=== PATIENT | male | born 1945 | race Caucasian/White ===

== ENCOUNTER 2017-08-25 05:43 | Inpatient (IN) | payer MEDICARE, OTHER ==
[2017-08-25 06:26] LABS: Hematocrit 42.5 % (42.0-52.0); Red Blood Cell (RBC) Count 4.98 mill/uL (4.70-6.10); White Blood Cell (WBC) Count 5.2 thou/uL (4.8-10.8)
[2017-08-25] MEDS ORDERED: Protamine Sulfate 50 MG/5 ML VIAL ONE ×3 (06:36→07:24)
[2017-08-25] MEDS ORDERED: Heparin 5,000 UNITS/ML VIAL ONE (06:36)
[2017-08-25 06:43] LABS: Anion Gap 15 mmol/L (10-20); BUN (Urea Nitrogen) 26 mg/dL (8.4-25.7); Calc. Creatinine Clearance 61 mL/min (70-130); Calcium 9.9 mg/dL (7.8-10.44); Carbon Dioxide 23 mmol/L (23-31); Chloride 105 mmol/L (98-107); Estimated GFR-MDRD 58
[2017-08-25] MEDS ORDERED: Fentanyl 250 MCG/5 ML VIAL ONE (07:15)
[2017-08-25] MEDS ORDERED: Heparin 10,000 UNITS/1 ML VIAL ONE (07:16)
[2017-08-25] MEDS ORDERED: Nitroglycerin 50 MG/250 ML BOT 0 ML ONE (07:17)
[2017-08-25] MEDS ORDERED: ePHEDrine/0.9% NaCl/PF SYRINGE 50 mg/10 ml ONE (07:41)
[2017-08-25] MEDS ORDERED: Lidocaine 2% PF 10 ML AMP (For Epidural Use) ONE (07:41)
[2017-08-25] MEDS ORDERED: Glycopyrrolate 0.2 MG/ML 5 ML SYRINGE ONE (07:41)
[2017-08-25] MEDS ORDERED: Ondansetron HCl/PF 4 MG/2 ML Vial ONE ×2 (07:41→10:22)
[2017-08-25] MEDS ORDERED: PHENYLEPHRINE-NS 100 MCG/ML 10 ML SYRINGE ONE ×2 (07:41→09:50)
[2017-08-25] MEDS ORDERED: Propofol 200 MG/20 ML VIAL ONE (07:41)
[2017-08-25] MEDS ORDERED: Ondansetron HCl/PF 4 MG/2 ML Vial IVP PRN ×2 (10:28→13:22)
[2017-08-25] MEDS ORDERED: Promethazine HCl 25 MG/ML VIAL IM PRN ×2 (10:28→13:22)
[2017-08-25] MEDS ORDERED: Promethazine HCl 25 MG/ML VIAL SLOW IVP PRN (10:28)
[2017-08-25] MEDS ORDERED: Promethazine HCl 25 MG/ML VIAL ONE (10:39)
[2017-08-25] MEDS ORDERED: Fentanyl 100 MCG/2 ML VIAL ONE (10:39)
[2017-08-25] MEDS ORDERED: D5 1/2 NS w/20 mEq KCL 1,000 ML ONE (11:08)
--- NOTE | 2017-08-25 11:44 | OP ---
DATE OF PROCEDURE: 08/25/2017 PREOPERATIVE DIAGNOSIS: Peripheral vascular disease with gangrene in left great toe. POSTOPERATIVE DIAGNOSIS: Peripheral vascular disease with gangrene in left great toe. PROCEDURES PERFORMED: 1. Left common femoral artery endarterectomy. 2. Left common femoral artery to above knee popliteal artery bypass utilizing 8 mm ring Propaten co ated [place]. SURGEON: Yury Smalls M.D. ANESTHESIA: General endotracheal - Dr. Jauregui. ESTIMATED BLOOD LOSS: 100 mL. FLUIDS: 900 mL of crystalloid. URINE OUTPUT: 450 mL. PROCEDURE IN DETAIL: After consent was obtained, the patient was brought to the operating room and placed in the supine position on the operating room table. Appropriate anesthetic monitor was place d and general endotracheal anesthesia induced. Left leg was prepped and draped in usual sterile fas hion. The groin was addressed first. Common femoral artery was exposed. The common femoral artery was circumferentially calcified. The profunda was soft at its takeoff, but was not soft distally. Common femoral artery was followed up under the inguinal ligament to where the external iliac arter y could be clamped. Popliteal artery was then exposed through an above-knee incision at [facility]. A Tamar-Wick tunneler was passed and 8 mm ringed Propaten coated [place] graft passed from gr oin to knee. The patient was given 7500 units of heparin. After 3 minutes, the external iliac justice ry was clamped and the profunda was clamped. An incision was made over the profunda takeoff on the common femoral artery and extended proximally through a layer of calcium. The common femoral artery was circumferentially endarterectomized. A 5-0 Prolene was used to tack down distal endpoint. The profunda was widely patent. There was good inflow. [place] graft was sewn in place with running 6-0 Prolene suture. After completion, anastomosis was tested and was hemostatic except for needle h oles. Clamps were reapplied. Distal anastomosis was then addressed. The graft was antegrade flush ed and then flushed with heparinized saline. The graft was reclamped. The popliteal artery was cla mped proximally and distally just above the knee joint. An incision in the popliteal artery was mad e and graft cut to appropriate length. A running 6-0 Prolene anastomosis was created. Prior to com pletion of the anastomosis, arteries were backbled and the graft was antegrade flushed. Anastomosis was completed and tied. Antegrade flow was reestablished. Fifty milligrams of protamine was admin istered. TachoSil was then used to obtain hemostasis at the needle holes. After adequate hemostasi s had been obtained at the distal anastomosis, wound was irrigated and closed in multiple layers. D ermabond was applied to the skin. Hemostasis was ensured in the proximal anastomosis. A single sti tch was placed for hemostasis. Wound was copiously irrigated, closed in layers and Dermabond applie d to skin. The patient was awakened, extubated, and [facility]
[2017-08-25] MEDS ORDERED: Promethazine HCl 25 MG/ML VIAL PR PRN (13:22)
[2017-08-25] MEDS ORDERED: HYDROcodone/Acetaminophen 5/325 mg Tablet PO PRN (13:22)
[2017-08-25] MEDS ORDERED: Fentanyl 100 MCG/2 ML VIAL SLOW IVP PRN ×2 (13:22)
[2017-08-25] MEDS ORDERED: Acetaminophen 325 MG TAB PO PRN (13:22)
[2017-08-25 16:44] VITALS: BMI 26.2
[2017-08-25] MEDS ORDERED: FLU VACC TS2017-18 (>65YR) 0.5 ML SYRINGE IM ONE (17:00)
[2017-08-25] MEDS: HYDROcodone/Acetaminophen 5/325 mg Tablet PO PRN ×2 (17:46→21:44)
[2017-08-25] MEDS: Insulin Regular 300 UNITS/3 ML VIAL SC PRN ×2 (17:48→21:42)
[2017-08-25] MEDS: Gabapentin 300 MG CAP PO SCH (20:48)
[2017-08-25] MEDS: D5 1/2 NS w/20 mEq KCL 1,000 ML IV SCH (20:52)
[2017-08-25] MEDS ORDERED: Atorvastatin Calcium 20 MG TAB PO SCH (21:00)
[2017-08-26] MEDS: D5 1/2 NS w/20 mEq KCL 1,000 ML IV SCH (07:11)
[2017-08-26] MEDS: HYDROcodone/Acetaminophen 5/325 mg Tablet PO PRN (08:05)
[2017-08-26] MEDS: Gabapentin 300 MG CAP PO SCH (08:05)
[2017-08-26] MEDS ORDERED: Aspirin 81 mg Enteric Coated Tablet PO SCH (09:00)
[2017-08-26] MEDS ORDERED: Dapagliflozin Propanediol [Farxiga] 10 MG PO SCH (09:00)
[2017-08-26] MEDS: Insulin Regular 300 UNITS/3 ML VIAL SC PRN (12:32)
[2017-08-26 16:03] VITALS: BP 122/59; TEMP 98.1
--- NOTE | 2017-08-26 18:15 | DIS ---
DATE OF ADMISSION: 08/25/2017 DATE OF DISCHARGE: 08/26/2017 DIAGNOSIS: Peripheral vascular disease with left great toe gangrene. PROCEDURES: 1. Left femoral to above knee popliteal artery bypass utilizing 8-mm Propaten coated [place]atan. 2. Left common femoral artery endarterectomy. DESCRIPTION OF HOSPITAL STAY: Mr. Oswald was admitted for elective left fem-pop. He has done well postoperatively and being discharged to home today. DISCHARGE MEDICATIONS: Unchanged. Followup is with me in 2 weeks to reevaluate his left great toe.
--- NOTE | 2017-08-28 06:53 | EKG ---
Test Reason : PREOP Blood Pressure : / mmHG Vent. Rate : 067 BPM Atrial Rate : 067 BPM P-R Int : 194 ms QRS Dur : 084 ms QT Int : 404 ms P-R-T Axes : -05 048 073 degrees QTc Int : 426 ms Sinus rhythm with sinus arrhythmia with occasional Premature ventricular complexes Otherwise normal ECG When compared with ECG of to 18-Nov-2016 Premature ventricular complexes now present ST no longer depressed in Lateral leads Confirmed by OSCAR ULLOA ([id number]) on 08/28/2017 6:53:46 AM Referred By: CINDY TREVIÑO Confirmed By:OSCAR ULLOA
== END 2017-08-26 17:13 | disposition home or self-care (01) | DRG 254 ==
LOC: SURG A 05:43 → 2NO 11:42
PROVIDERS: ADMIT Thoracic Surgery (Cardiothoracic Vascular Surgery); ATTEND Thoracic Surgery (Cardiothoracic Vascular Surgery)
PROC: 04CL0ZZ Extirpation of Matter from Left Femoral Artery, Open Approach (ICD-10-PCS; principal; 2017-08-25)
PROC: 041L0ZL Bypass Left Femoral Artery to Popliteal Artery, Open Approach (ICD-10-PCS; 2017-08-25)
PROC: 04UL0JZ Supplement Left Femoral Artery with Synthetic Substitute, Open Approach (ICD-10-PCS; 2017-08-25)
DX: I70.213 Atherosclerosis of native arteries of extremities with intermittent claudication, bilateral legs (principal); E11.40 Type 2 diabetes mellitus with diabetic neuropathy, unspecified; E78.2 Mixed hyperlipidemia; I25.10 Atherosclerotic heart disease of native coronary artery without angina pectoris; Z95.1 Presence of aortocoronary bypass graft; Z79.82 Long term (current) use of aspirin; Z85.118 Personal history of other malignant neoplasm of bronchus and lung; Z90.2 Acquired absence of lung [part of]; Z83.3 Family history of diabetes mellitus; Z82.49 Family history of ischemic heart disease and other diseases of the circulatory system
CPT/HCPCS: 36416; 80048; 85027; 86850; 86900; 86901; 93005; 93010; A4216; G8978-GP-CJ; G8979-GP-CJ; G8980-GP-CJ; J1642; J1644; J2001; J2405; J2550; J2704; J2720; J3010

== ENCOUNTER 2017-09-15 07:51 | Day surgery (SDC) | payer MEDICARE, OTHER ==
[2017-09-12 10:31] VITALS: BMI 25.1
[2017-09-15] MEDS ORDERED: Midazolam HCl 2 mg/2 ml Vial ONE (09:31)
[2017-09-15] MEDS ORDERED: Fentanyl 100 MCG/2 ML VIAL ONE ×2 (09:31→11:22)
[2017-09-15] MEDS ORDERED: CEFAZOLIN/Water 2 GM/20 ML SYRINGE ONE (09:42)
[2017-09-15] MEDS ORDERED: Dexamethasone 4 mg/ml Vial ONE (09:45)
[2017-09-15] MEDS ORDERED: Bupivacaine PF 0.5% 30 ML VIAL ONE (10:18)
[2017-09-15] MEDS ORDERED: Ondansetron HCl/PF 4 MG/2 ML Vial ONE (10:22)
[2017-09-15] MEDS ORDERED: Dexamethasone 20 MG/5 ML VIAL ONE (10:22)
[2017-09-15] MEDS ORDERED: Propofol 200 MG/20 ML VIAL ONE (10:22)
[2017-09-15] MEDS ORDERED: Lidocaine 1% PF 5 ML VIAL ONE (10:22)
[2017-09-15] MEDS ORDERED: PHENYLEPHRINE-NS 100 MCG/ML 10 ML SYRINGE ONE (10:22)
--- NOTE | 2017-09-15 11:06 | OP ---
DATE OF PROCEDURE: 09/15/2017 PREOPERATIVE DIAGNOSIS: Gangrene of the left great toe. POSTOPERATIVE DIAGNOSIS: Gangrene of the left great toe. PROCEDURE: Left great toe ray amputation. SURGEON: Yury Smalls M.D. ANESTHESIA: General endotracheal. ESTIMATED BLOOD LOSS: Minimal. PROCEDURE IN DETAIL: After consent was obtained, the patient was brought to the operating room and placed in the supine position on operating room table. Appropriate anesthetic monitor was placed an d general anesthesia was induced. A digital block was performed with 0.5% Marcaine without epinephr ine. The foot was prepped and draped in usual sterile fashion. The toe gangrene terminated at the metata rsophalangeal junction. A circular incision was made and further nonviable tissue laterally was octaviano rided. The joint space was then opened and the digit excised. The remaining metatarsal head cartil age was debrided. There was some bleeding from the tissue, enough that I felt that this would be vi able. The wound was then copiously irrigated and packed open. The patient will be instructed on op en packing at home and we will see him back early in the office to ensure that he is having healing. If this does not heal he will need a transmetatarsal type amputation.
== END 2017-09-15 13:06 | disposition home or self-care (01) ==
LOC: SDC 07:51
PROVIDERS: ATTEND Thoracic Surgery (Cardiothoracic Vascular Surgery)
PROC: 0Y6N0Z4 Detachment at Left Foot, Complete 1st Ray, Open Approach (ICD-10-PCS; principal; 2017-09-15)
DX: E11.52 Type 2 diabetes mellitus with diabetic peripheral angiopathy with gangrene (principal); I96 Gangrene, not elsewhere classified; I25.10 Atherosclerotic heart disease of native coronary artery without angina pectoris; E78.2 Mixed hyperlipidemia; Z79.84 Long term (current) use of oral hypoglycemic drugs; Z79.899 Other long term (current) drug therapy; Z98.1 Arthrodesis status; Z90.2 Acquired absence of lung [part of]; Z90.49 Acquired absence of other specified parts of digestive tract; Z95.1 Presence of aortocoronary bypass graft; Z95.828 Presence of other vascular implants and grafts; Z98.890 Other specified postprocedural states; Z87.891 Personal history of nicotine dependence; Z83.3 Family history of diabetes mellitus; Z82.49 Family history of ischemic heart disease and other diseases of the circulatory system
CPT/HCPCS: 88305; 96374; J1100; J2001; J2250; J2405; J2704; J3010; S0020

== ENCOUNTER 2017-09-23 15:43 | Inpatient (IN) | payer MEDICARE, OTHER ==
[2017-09-23] MEDS ORDERED: HYDROcodone/Acetaminophen 5/325 mg Tablet PO PRN (16:23)
[2017-09-23] MEDS ORDERED: Dextrose 5% in Water 1,000 ML IV PRN (16:25)
[2017-09-23] MEDS ORDERED: Dextrose 50% Abboject 50 ML SYRINGE IVP PRN (16:25)
[2017-09-23 17:11] LABS: #Eosinphils 0.1 thou/uL (0.0-0.7); #Lymphocytes 1.1 thou/uL (1.20-3.40); #Monocytes 0.9 thou/uL (0.11-0.59); #Neutrophils 12.2 thou/uL (1.40-6.50); %Basophils 0.1 % (0.0-1.0); %Eosinophils 0.8 % (0.0-10.0); %Lymphocytes 7.5 % (21.0-51.0); %Monocytes 6.1 % (0.0-10.0); Hematocrit 33.6 % (42.0-52.0); Mean Platelet Volume 9.1 fL (7.4-10.4); Red Blood Cell (RBC) Count 3.96 mill/uL (4.70-6.10); White Blood Cell (WBC) Count 14.3 thou/uL (4.8-10.8)
[2017-09-23 17:31] LABS: Anion Gap 19 mmol/L (10-20); BUN (Urea Nitrogen) 38 mg/dL (8.4-25.7); Calc. Creatinine Clearance 0 mL/min (70-130); Calcium 9.7 mg/dL (7.8-10.44); Carbon Dioxide 19 mmol/L (23-31); Chloride 100 mmol/L (98-107); Estimated GFR-MDRD 32
[2017-09-23] MEDS: metFORMIN 500 MG TAB PO SCH (17:40)
[2017-09-23] MEDS: Piperacillin/Tazobactam 3.375 GM in Sodium Chloride 0.9% 100 ML IVPB SCH (18:13)
[2017-09-23 19:21] VITALS: BMI 25.1
[2017-09-23] MEDS: Simvastatin 40 MG TAB PO SCH (20:23)
[2017-09-23] MEDS: Gabapentin 300 MG CAP PO SCH (21:46)
[2017-09-23] MEDS: Insulin Regular 300 UNITS/3 ML VIAL SC PRN (23:00)
[2017-09-24] MEDS: Piperacillin/Tazobactam 3.375 GM in Sodium Chloride 0.9% 100 ML IVPB SCH ×5 (00:06→23:28)
[2017-09-24] MEDS: Insulin Regular 300 UNITS/3 ML VIAL SC PRN ×4 (05:53→21:45)
[2017-09-24] MEDS: metFORMIN 500 MG TAB PO SCH ×2 (08:20→17:15)
[2017-09-24] MEDS: glyBURIDE 2.5 MG TAB PO SCH (08:20)
[2017-09-24] MEDS: Gabapentin 300 MG CAP PO SCH ×2 (08:21→20:05)
[2017-09-24] MEDS: Aspirin 81 mg Enteric Coated Tablet PO SCH (08:21)
[2017-09-24] MEDS: FARXIGA 10MG PO SCH (08:22)
[2017-09-24] MEDS: HYDROcodone/Acetaminophen 5/325 mg Tablet PO PRN (15:14)
[2017-09-24] MEDS: Simvastatin 40 MG TAB PO SCH (20:06)
[2017-09-25] MEDS: Piperacillin/Tazobactam 3.375 GM in Sodium Chloride 0.9% 100 ML IVPB SCH ×4 (05:18→22:59)
[2017-09-25] MEDS: glyBURIDE 2.5 MG TAB PO SCH (08:59)
[2017-09-25] MEDS: Aspirin 81 mg Enteric Coated Tablet PO SCH (09:00)
[2017-09-25] MEDS: Gabapentin 300 MG CAP PO SCH ×2 (09:00→19:58)
[2017-09-25] MEDS: metFORMIN 500 MG TAB PO SCH ×2 (09:00→17:55)
[2017-09-25] MEDS: HYDROcodone/Acetaminophen 5/325 mg Tablet PO PRN ×2 (09:03→17:57)
[2017-09-25] MEDS: FARXIGA 10MG PO SCH (09:05)
[2017-09-25] MEDS: Insulin Regular 300 UNITS/3 ML VIAL SC PRN ×3 (11:13→21:47)
[2017-09-25] MEDS: Simvastatin 40 MG TAB PO SCH (19:58)
[2017-09-26] MEDS: HYDROcodone/Acetaminophen 5/325 mg Tablet PO PRN ×2 (04:21→11:27)
[2017-09-26] MEDS: Piperacillin/Tazobactam 3.375 GM in Sodium Chloride 0.9% 100 ML IVPB SCH ×3 (05:34→18:51)
[2017-09-26] MEDS ORDERED: Fentanyl 100 MCG/2 ML VIAL ONE ×2 (08:05→10:06)
[2017-09-26] MEDS ORDERED: Propofol 200 MG/20 ML VIAL ONE (08:52)
[2017-09-26] MEDS ORDERED: Ondansetron HCl/PF 4 MG/2 ML Vial ONE (08:52)
[2017-09-26] MEDS ORDERED: PHENYLEPHRINE-NS 100 MCG/ML 10 ML SYRINGE ONE (08:52)
--- NOTE | 2017-09-26 09:59 | OP ---
DATE OF PROCEDURE: 09/26/2017 PREOPERATIVE DIAGNOSIS: Gangrene of the left great toe. POSTOPERATIVE DIAGNOSIS: Gangrene of the left great toe. PROCEDURE: Left great toe transmetatarsal amputation and debridement. SURGEON: Yury Smalls M.D. ANESTHESIA: General endotracheal. ESTIMATED BLOOD LOSS: Tissue was sent for culture. PROCEDURE IN DETAIL: After consent was obtained, the patient was brought to the operating room and placed in the supine position on the operating room table. Appropriate anesthetic monitor was place d and general endotracheal anesthesia induced. Left foot was prepped and draped in usual sterile fa shion. Devitalized tissue was debrided back to the mid metatarsal level of the great toe. The grea t toe was divided and tissue removed. A small sample tissue was sent for culture. The remainder of the devitalized tissue was sharply debrided. Hemostasis was ensured with gentle electrocautery. W ound was copiously irrigated and wound VAC was placed by Wound therapy. The patient tolerated the p rocedure well and was transferred to the recovery room in stable condition.
[2017-09-26] MEDS ORDERED: Ondansetron HCl/PF 4 MG/2 ML Vial IVP PRN (10:08)
[2017-09-26] MEDS ORDERED: Promethazine HCl 25 MG/ML VIAL SLOW IVP PRN (10:08)
[2017-09-26] MEDS ORDERED: Promethazine HCl 25 MG/ML VIAL IM PRN (10:08)
[2017-09-26] MEDS ORDERED: Fentanyl 100 MCG/2 ML VIAL SLOW IVP PRN ×2 (10:51)
[2017-09-26] MEDS: Aspirin 81 mg Enteric Coated Tablet PO SCH (11:42)
[2017-09-26] MEDS: Gabapentin 300 MG CAP PO SCH ×2 (11:42→20:53)
[2017-09-26] MEDS: Insulin Regular 300 UNITS/3 ML VIAL SC PRN ×3 (11:44→20:54)
--- NOTE | 2017-09-26 16:14 | EKG ---
Test Reason : PREOP Blood Pressure : / mmHG Vent. Rate : 075 BPM Atrial Rate : 075 BPM P-R Int : 176 ms QRS Dur : 082 ms QT Int : 366 ms P-R-T Axes : -07 072 058 degrees QTc Int : 408 ms Possible low atrial or junctional rhythm Non specific ST changes Abnormal ECG Confirmed by DR. Yoselyn KEMP ([id number]) on 09/26/2017 4:13:44 PM Referred By: ZOYA Confirmed By:DR. Yoselyn KEMP
[2017-09-26] MEDS ORDERED: HYDROcodone/Acetaminophen 7.5/325 mg Tablet PO PRN (17:10)
[2017-09-26] MEDS: HYDROcodone/Acetaminophen 7.5/325 mg Tablet PO PRN (17:36)
[2017-09-26] MEDS: FARXIGA 10MG PO SCH (18:21)
[2017-09-26] MEDS: Simvastatin 40 MG TAB PO SCH (20:53)
[2017-09-27] MEDS: Piperacillin/Tazobactam 3.375 GM in Sodium Chloride 0.9% 100 ML IVPB SCH ×4 (00:30→18:29)
[2017-09-27] MEDS: HYDROcodone/Acetaminophen 7.5/325 mg Tablet PO PRN ×3 (00:38→16:11)
[2017-09-27] MEDS: Insulin Regular 300 UNITS/3 ML VIAL SC PRN ×4 (06:04→20:58)
[2017-09-27] MEDS: glyBURIDE 2.5 MG TAB PO SCH (06:25)
[2017-09-27] MEDS: Aspirin 81 mg Enteric Coated Tablet PO SCH (08:34)
[2017-09-27] MEDS: Gabapentin 300 MG CAP PO SCH ×2 (08:35→20:50)
[2017-09-27] MEDS: metFORMIN 500 MG TAB PO SCH ×2 (08:35→18:29)
[2017-09-27] MEDS ORDERED: FARXIGA 10 MG PO SCH (15:45)
[2017-09-27] MEDS: FARXIGA 10MG PO SCH (17:10)
[2017-09-27] MEDS: Simvastatin 40 MG TAB PO SCH (20:51)
[2017-09-28] MEDS: Piperacillin/Tazobactam 3.375 GM in Sodium Chloride 0.9% 100 ML IVPB SCH ×4 (00:05→17:42)
[2017-09-28] MEDS: HYDROcodone/Acetaminophen 7.5/325 mg Tablet PO PRN ×4 (00:06→19:33)
[2017-09-28 04:28] LABS: #Eosinphils 0.2 thou/uL (0.0-0.7); #Lymphocytes 1.8 thou/uL (1.20-3.40); #Monocytes 1.2 thou/uL (0.11-0.59); %Basophils 0.2 % (0.0-1.0); %Eosinophils 1.8 % (0.0-10.0); %Lymphocytes 17.5 % (21.0-51.0); Mean Platelet Volume 9.1 fL (7.4-10.4); Red Blood Cell (RBC) Count 3.85 mill/uL (4.70-6.10); White Blood Cell (WBC) Count 10.2 thou/uL (4.8-10.8)
[2017-09-28] MEDS: glyBURIDE 2.5 MG TAB PO SCH (07:44)
[2017-09-28] MEDS: metFORMIN 500 MG TAB PO SCH ×2 (07:44→16:11)
[2017-09-28] MEDS: FARXIGA 10 MG PO SCH (08:09)
[2017-09-28] MEDS: Gabapentin 300 MG CAP PO SCH ×2 (08:10→19:34)
[2017-09-28] MEDS: Aspirin 81 mg Enteric Coated Tablet PO SCH (08:13)
[2017-09-28] MEDS ORDERED: Loperamide HCl 2 MG CAP PO PRN (08:46)
[2017-09-28] MEDS: Insulin Regular 300 UNITS/3 ML VIAL SC PRN ×3 (12:11→19:44)
[2017-09-28] MEDS: Simvastatin 40 MG TAB PO SCH (19:33)
[2017-09-29] MEDS: Piperacillin/Tazobactam 3.375 GM in Sodium Chloride 0.9% 100 ML IVPB SCH ×2 (00:33→05:00)
[2017-09-29] MEDS: HYDROcodone/Acetaminophen 7.5/325 mg Tablet PO PRN ×4 (04:52→21:02)
[2017-09-29] MEDS: Insulin Regular 300 UNITS/3 ML VIAL SC PRN ×4 (06:00→21:30)
[2017-09-29] MEDS: glyBURIDE 2.5 MG TAB PO SCH (09:20)
[2017-09-29] MEDS: metFORMIN 500 MG TAB PO SCH ×2 (09:20→18:06)
[2017-09-29] MEDS: Gabapentin 300 MG CAP PO SCH ×2 (09:22→21:03)
[2017-09-29] MEDS: Aspirin 81 mg Enteric Coated Tablet PO SCH (09:22)
[2017-09-29] MEDS: FARXIGA 10 MG PO SCH (09:38)
--- NOTE | 2017-09-29 10:25 | CON ---
DATE OF CONSULTATION: 09/29/2017 REASON FOR CONSULTATION: Evaluate and make recommendations regarding treatment of left first toe infection. HISTORY OF PRESENT ILLNESS: A 72-year-old gentleman with history of chronic smoking, coronary disease, bypass surgery, peripheral vascular disease with revascularization of lower extremities, BPH and lung cancer, left side, status post resection plus chemotherapy, in remission thus far, who has had amputation at the transmetatarsal level of the left great toe. This is after the revascularization procedure. He is currently in no distress. No headaches, visual symptoms, sore throat, odynophagia, dysphagia, no cough or sputum production or chest pain, no abdominal pain. A little bit of difficulty with voiding. He needs to get up and cannot void when he is in bed, no back pain. No neurological symptoms. PAST MEDICAL HISTORY: Coronary artery disease, peripheral vascular disease, lung cancer in remission after treatment including resection and chemotherapy, port placement still in place at this time. ALLERGIES: ATROPINE, BACTRIM, NORCO. MEDICATIONS: Zosyn, aspirin, Neurontin, insulin, Flagyl, Farxiga. FAMILY HISTORY: Noncontributory. SOCIAL HISTORY: Former smoker, quit in 2008, lives in assisted living with in [place]. PHYSICAL EXAMINATION: VITAL SIGNS: T-max 97.9, blood pressure 119/60, pulse 74, respirations 18, O2 sat 94%. Appears in no distress. SKIN: Shows the area of devitalized first toe site for the transmetatarsal amputation. There are some areas of superficial skin necrosis in the mid foot dorsal aspect, and then there is a picture of the transmetatarsal amputation site with mostly red tissue, some yellow fat tissue, but no obvious areas of necrosis except for the more proximal aspect where there is a little bit of superficial skin necrosis and blistering. The patient has no lymphadenopathy. HEENT: Ocular movements are conjugate. Oral cavity with numerous teeth in place with marked decay. NECK: Supple, no jugular venous distention or carotid bruits, no thyromegaly. LUNGS: With symmetric clear breath sounds. HEART: S1, S2. Regular rate, and no S3 or S4. ABDOMEN: Soft, not distended or tender. No ascites. No bladder distention. GENITOURINARY: Genital examination normal. EXTREMITIES: Pulses are faintly palpable in dorsalis pedis on the left side and right side, cap refill is less than 4 seconds. NEUROLOGIC: Cognitive function is intact. No focal weakness identified. LABORATORY: White cell count down from 14 to 10, hemoglobin 10, platelets 262, neutrophil percentage from 85-68. Chemistry: Creatinine is 2.04, sodium 132, potassium 5.8, glucose 273. The creatinine is higher than what it was on admission which was 1.22. The patient is currently receiving Zosyn 3.375 IV q.6h. and Flagyl. Cultures revealed Enterococcus faecalis with the usual susceptibility profile. The second organism has a gram-negative froy. I have requested to the laboratory that they perform full identification and susceptibility studies on the isolate. There is a chest x-ray from June this year which showed atelectases left lung. ASSESSMENT: 1. Peripheral vascular disease. 2. Coronary artery disease, previous fem-pop bypass. 3. Areas of necrosis, left first toe, status post transmetatarsal amputation. I believe the specimen for pathology is yet to be evaluated. DISCUSSION: I have asked the lab to finish thte work up of the GNR retrieved from the sample. After that and the pathology results (if specimen was submitted for margin evaluation) then will decide on regimen and if iv or oral administration. The presence of C. difficile in the stool is consistent with colonization, although he does have early diarrhea and will likely progress to full blown colitis if not given and treatment. We will switch him to oral vancomycin, which he should continue throughout the course of treatment. Duration of therapy with antimicrobials will depend on the margins of clearance , according to the pathology sample as well as the clinical findings including wound healing and granulation tissue development. In the meantime, we will decrease the dosage of Zosyn according to his renal function and switch him to oral vancomycin instead of Flagyl. [facility]
[2017-09-29] MEDS: Piperacillin/Tazobactam 2.25 GM in Sodium Chloride 0.9% 100 ML IVPB SCH ×2 (13:01→19:44)
[2017-09-29] MEDS: Vancomycin HCl 25 MG/ML Oral PO SCH ×3 (13:02→21:03)
[2017-09-29] MEDS ORDERED: metroNIDAZOLE 500 MG TAB PO SCH (15:00)
[2017-09-29] MEDS: Simvastatin 40 MG TAB PO SCH (21:03)
[2017-09-30] MEDS: Piperacillin/Tazobactam 2.25 GM in Sodium Chloride 0.9% 100 ML IVPB SCH ×5 (00:50→23:32)
[2017-09-30] MEDS: HYDROcodone/Acetaminophen 7.5/325 mg Tablet PO PRN ×3 (01:00→17:54)
[2017-09-30] MEDS: Insulin Regular 300 UNITS/3 ML VIAL SC PRN ×3 (06:25→21:42)
[2017-09-30] MEDS: Vancomycin HCl 25 MG/ML Oral PO SCH ×4 (09:14→21:41)
[2017-09-30] MEDS: Gabapentin 300 MG CAP PO SCH ×2 (09:15→20:14)
[2017-09-30] MEDS: glyBURIDE 2.5 MG TAB PO SCH (09:15)
[2017-09-30] MEDS: FARXIGA 10 MG PO SCH (09:16)
[2017-09-30] MEDS: metFORMIN 500 MG TAB PO SCH ×2 (09:17→17:53)
[2017-09-30] MEDS: Aspirin 81 mg Enteric Coated Tablet PO SCH (09:17)
[2017-09-30] MEDS: Simvastatin 40 MG TAB PO SCH (20:15)
[2017-10-01] MEDS: Piperacillin/Tazobactam 2.25 GM in Sodium Chloride 0.9% 100 ML IVPB SCH ×3 (05:55→18:27)
[2017-10-01] MEDS: Insulin Regular 300 UNITS/3 ML VIAL SC PRN ×4 (05:56→21:26)
[2017-10-01] MEDS: HYDROcodone/Acetaminophen 7.5/325 mg Tablet PO PRN ×3 (07:28→20:22)
[2017-10-01] MEDS: Gabapentin 300 MG CAP PO SCH ×2 (09:28→20:11)
[2017-10-01] MEDS: Aspirin 81 mg Enteric Coated Tablet PO SCH (09:29)
[2017-10-01] MEDS: metFORMIN 500 MG TAB PO SCH ×2 (09:29→17:41)
[2017-10-01] MEDS: FARXIGA 10 MG PO SCH (09:30)
[2017-10-01] MEDS: Vancomycin HCl 25 MG/ML Oral PO SCH ×4 (09:31→20:11)
[2017-10-01] MEDS: glyBURIDE 2.5 MG TAB PO SCH (10:02)
[2017-10-01] MEDS ORDERED: Cipro 250 MG TAB PO SCH (20:00)
[2017-10-01] MEDS: Simvastatin 40 MG TAB PO SCH (20:11)
[2017-10-01] MEDS: Ciprofloxacin 500 MG TAB PO SCH (20:11)
[2017-10-02] MEDS: Piperacillin/Tazobactam 2.25 GM in Sodium Chloride 0.9% 100 ML IVPB SCH ×5 (00:44→23:54)
[2017-10-02] MEDS: Ciprofloxacin 500 MG TAB PO SCH ×2 (05:42→20:49)
[2017-10-02] MEDS: metFORMIN 500 MG TAB PO SCH ×2 (08:22→17:21)
[2017-10-02] MEDS: Aspirin 81 mg Enteric Coated Tablet PO SCH (08:22)
[2017-10-02] MEDS: Gabapentin 300 MG CAP PO SCH ×2 (08:22→20:49)
[2017-10-02] MEDS: FARXIGA 10 MG PO SCH (08:23)
[2017-10-02] MEDS: glyBURIDE 2.5 MG TAB PO SCH (08:24)
[2017-10-02] MEDS: Vancomycin HCl 25 MG/ML Oral PO SCH ×4 (10:17→20:49)
[2017-10-02] MEDS: HYDROcodone/Acetaminophen 7.5/325 mg Tablet PO PRN ×2 (10:20→20:49)
[2017-10-02] MEDS: Insulin Regular 300 UNITS/3 ML VIAL SC PRN ×2 (12:51→17:21)
[2017-10-02] MEDS: Simvastatin 40 MG TAB PO SCH (20:49)
[2017-10-03] MEDS: Ciprofloxacin 500 MG TAB PO SCH ×2 (05:49→21:19)
[2017-10-03] MEDS: Piperacillin/Tazobactam 2.25 GM in Sodium Chloride 0.9% 100 ML IVPB SCH ×2 (05:49→11:40)
[2017-10-03] MEDS: Insulin Regular 300 UNITS/3 ML VIAL SC PRN ×3 (06:22→21:20)
[2017-10-03] MEDS: glyBURIDE 2.5 MG TAB PO SCH (07:24)
[2017-10-03] MEDS: Gabapentin 300 MG CAP PO SCH ×2 (09:15→21:19)
[2017-10-03] MEDS: HYDROcodone/Acetaminophen 7.5/325 mg Tablet PO PRN ×2 (09:15→17:46)
[2017-10-03] MEDS: Aspirin 81 mg Enteric Coated Tablet PO SCH (09:16)
[2017-10-03] MEDS: metFORMIN 500 MG TAB PO SCH ×2 (09:16→17:47)
[2017-10-03] MEDS: Vancomycin HCl 25 MG/ML Oral PO SCH (11:30)
[2017-10-03] MEDS: FARXIGA 10 MG PO SCH (11:40)
[2017-10-03] MEDS ORDERED: Meropenem 1 GM, Admixture Fee 1 EACH in Sodium Chloride 0.9% 100 ML IVPB SCH (13:00)
[2017-10-03] MEDS: MEROPENEM 1 GM/50 ML 1 GM in Premix Bag 1 BAG IVPB SCH (15:55)
[2017-10-03] MEDS: Simvastatin 40 MG TAB PO SCH (21:19)
[2017-10-04] MEDS: MEROPENEM 1 GM/50 ML 1 GM in Premix Bag 1 BAG IVPB SCH ×2 (01:30→13:09)
[2017-10-04] MEDS: glyBURIDE 2.5 MG TAB PO SCH (06:14)
[2017-10-04] MEDS: Insulin Regular 300 UNITS/3 ML VIAL SC PRN ×4 (06:15→21:39)
[2017-10-04] MEDS: Ciprofloxacin 500 MG TAB PO SCH ×2 (06:15→21:40)
[2017-10-04] MEDS: FARXIGA 10 MG PO SCH (07:25)
[2017-10-04] MEDS: Aspirin 81 mg Enteric Coated Tablet PO SCH (07:26)
[2017-10-04] MEDS: Gabapentin 300 MG CAP PO SCH ×2 (07:26→21:40)
[2017-10-04] MEDS: metFORMIN 500 MG TAB PO SCH ×2 (07:26→17:47)
[2017-10-04] MEDS: HYDROcodone/Acetaminophen 7.5/325 mg Tablet PO PRN (11:10)
[2017-10-04] MEDS: Simvastatin 40 MG TAB PO SCH (21:40)
[2017-10-05] MEDS: HYDROcodone/Acetaminophen 7.5/325 mg Tablet PO PRN ×2 (01:19→19:36)
[2017-10-05] MEDS: MEROPENEM 1 GM/50 ML 1 GM in Premix Bag 1 BAG IVPB SCH ×2 (01:19→13:08)
[2017-10-05] MEDS: Ciprofloxacin 500 MG TAB PO SCH ×2 (06:26→19:37)
[2017-10-05] MEDS: glyBURIDE 2.5 MG TAB PO SCH (07:30)
[2017-10-05] MEDS: Aspirin 81 mg Enteric Coated Tablet PO SCH (08:57)
[2017-10-05] MEDS: Gabapentin 300 MG CAP PO SCH ×2 (08:57→19:37)
[2017-10-05] MEDS: metFORMIN 500 MG TAB PO SCH ×2 (08:58→17:28)
[2017-10-05] MEDS: FARXIGA 10 MG PO SCH (09:00)
[2017-10-05] MEDS: Insulin Regular 300 UNITS/3 ML VIAL SC PRN ×2 (12:00→17:28)
[2017-10-05 13:31] LABS: Anion Gap 20 mmol/L (10-20); BUN (Urea Nitrogen) 19 mg/dL (8.4-25.7); Calc. Creatinine Clearance 76 mL/min (70-130); Calcium 9.3 mg/dL (7.8-10.44); Carbon Dioxide 18 mmol/L (23-31); Chloride 105 mmol/L (98-107); Estimated GFR-MDRD 74
[2017-10-05] MEDS: Simvastatin 40 MG TAB PO SCH (19:37)
[2017-10-06] MEDS: MEROPENEM 1 GM/50 ML 1 GM in Premix Bag 1 BAG IVPB SCH ×2 (00:20→12:22)
[2017-10-06] MEDS ORDERED: Bupivacaine 0.25% HCL 30 ML VIAL ONE (06:28)
[2017-10-06] MEDS ORDERED: Fentanyl 100 MCG/2 ML VIAL ONE ×2 (07:03→09:31)
[2017-10-06] MEDS ORDERED: PHENYLEPHRINE-NS 100 MCG/ML 10 ML SYRINGE ONE (08:40)
[2017-10-06] MEDS ORDERED: Lidocaine 1% PF 5 ML VIAL ONE (08:40)
[2017-10-06] MEDS ORDERED: Ondansetron HCl/PF 4 MG/2 ML Vial ONE (08:40)
[2017-10-06] MEDS ORDERED: Propofol 200 MG/20 ML VIAL ONE (08:40)
[2017-10-06] MEDS ORDERED: Sodium Chloride 0.9% 10 ML ONE (10:02)
--- NOTE | 2017-10-06 11:03 | OP ---
DATE OF PROCEDURE: 10/06/2017 PREOPERATIVE DIAGNOSIS: Gangrene, left foot. POSTOPERATIVE DIAGNOSIS: Gangrene, left foot. PROCEDURE: Incision and debridement of left foot. PROCEDURE IN DETAIL: After consent was obtained, the patient was brought to the operating room and placed in the supine position on the operating room table. Appropriate anesthetic monitor was placed and general endotracheal anesthesia induced. Left foot was debrided of devitalized tissue frrom skin, fascia, muscle and tendon. Hemostasis was ensured. A wound VAC was replaced. The patient was transferred to the recovery room in stable condition. MILAGROS
[2017-10-06] MEDS: metFORMIN 500 MG TAB PO SCH ×2 (11:39→17:52)
[2017-10-06] MEDS: glyBURIDE 2.5 MG TAB PO SCH (11:39)
[2017-10-06] MEDS: Aspirin 81 mg Enteric Coated Tablet PO SCH (11:39)
[2017-10-06] MEDS: Ciprofloxacin 500 MG TAB PO SCH ×2 (11:39→20:27)
[2017-10-06] MEDS: Gabapentin 300 MG CAP PO SCH ×2 (11:40→20:26)
[2017-10-06] MEDS: FARXIGA 10 MG PO SCH (11:40)
[2017-10-06] MEDS: HYDROcodone/Acetaminophen 7.5/325 mg Tablet PO PRN ×3 (12:23→21:46)
[2017-10-06] MEDS: Insulin Regular 300 UNITS/3 ML VIAL SC PRN (15:34)
--- NOTE | 2017-10-06 16:13 | PRG ---
DATE OF SERVICE: 10/06/2017 SUBJECTIVE: Mr. Oswald is having some loose stool, not liquid, but soft sometimes he is a bit incon tinent. No respiratory symptoms or abdominal pain and had further debridement by Dr. Smalls. The haley bowser was brought to the operating room, placed in supine position. The left foot was debrided of d evitalized tissue. OBJECTIVE: VITAL SIGNS: Normal. LUNGS: Clear. HEART: S1, S2, regular rate. ABDOMEN: Soft. EXTREMITIES: Left foot with dressing not removed and has negative pressure dressing on top of that. LABORATORY DATA: White cell count 10.2, hemoglobin 10.2, platelets 265 a few days ago. Microbiolog y with Enterococcus faecalis, which is sensitive to PENICILLIN and Pseudomonas putida, which is susc eptible to QUINOLONES. He also has Peptostreptococcus prevotii. At this time, we will transition him to Augmentin plus cip rofloxacin for discharge planning and oral vancomycin. The oral vancomycin for prevention of exacer bation of C. difficile and should be continued until the end of therapy. The endpoint will be granu lation of the base of the wound without necrotic changes, then antimicrobials can be discontinued.
[2017-10-06] MEDS: Simvastatin 40 MG TAB PO SCH (20:27)
[2017-10-07] MEDS: MEROPENEM 1 GM/50 ML 1 GM in Premix Bag 1 BAG IVPB SCH (00:04)
[2017-10-07] MEDS: Ciprofloxacin 500 MG TAB PO SCH (05:31)
[2017-10-07] MEDS: HYDROcodone/Acetaminophen 7.5/325 mg Tablet PO PRN (06:35)
[2017-10-07] MEDS: Gabapentin 300 MG CAP PO SCH (08:29)
[2017-10-07] MEDS: metFORMIN 500 MG TAB PO SCH (08:30)
[2017-10-07] MEDS: Aspirin 81 mg Enteric Coated Tablet PO SCH (08:30)
[2017-10-07] MEDS: glyBURIDE 2.5 MG TAB PO SCH (08:31)
[2017-10-07] MEDS: FARXIGA 10 MG PO SCH (08:32)
[2017-10-07 08:37] VITALS: BP 120/67; TEMP 98
--- NOTE | 2017-10-07 10:53 | DIS ---
DATE OF DISCHARGE: 10/07/2017 HISTORY OF HOSPITAL STAY: Mr. Oswald was admitted with gangrene of his right toe amputation site. He was taken to the operating room and underwent a transmetatarsal amputation of the great toe and d ebridement. He has undergone 2 separate other debridements. Cultures grew Pseudomonas and Enteroco ccus. Dr. Fields was consulted. He has been placed on Augmentin and Cipro orally as outpatient anti biotics. He has a wound VAC in place and is going to be coming in to outpatient wound care for [facility] on Mondays and . Other medications are unchanged for discharge.
--- NOTE | 2017-10-07 11:31 | CON ---
DATE OF CONSULTATION: 10/06/2017 HISTORY OF PRESENT ILLNESS: Mr. Grzegorz Oswald is a very pleasant 72-year-old gentleman referred for evaluation for hyperbaric oxygen therapy. The patient's medical history is significant for nadia betes mellitus. On 08/25/2017 the patient underwent left common femoral artery to above knee poplit eal artery bypass by Dr. Yury Smalls. The patient subsequently underwent on 09/15/2017 left great toe ray amputation followed by left great toe transmetatarsal amputation and debridement on 017 and left foot incision and debridement earlier today. The patient is also receiving negative pr essure therapy for the left foot wound. PAST MEDICAL HISTORY: 1. Peripheral vascular disease. 2. Diabetes mellitus. 3. Coronary artery disease. 4. Lung carcinoma. PAST SURGICAL HISTORY: 1. Left thoracotomy with extensive lysis of adhesions and left upper lobectomy. 2. Coronary artery bypass grafting x4. 3. Neck surgery. 4. Femoral to popliteal artery bypass on the right. MEDICATIONS: On admission clindamycin, aspirin, Farxiga, metformin, gabapentin, simvastatin. ALLERGIES: No known diagnosed allergies. SOCIAL HISTORY: Significant for tobacco use of 2 packs of cigarettes per day for 30 years. The pat ient states that he stopped smoking in 2008. The patient admits to only the occasional consumption of alcohol. He admits to the moderate consumption of alcohol in the past. FAMILY HISTORY: Significant for diabetes mellitus and coronary artery disease. The patient states that he has multiple relatives on the maternal and paternal sides of his family who were diagnosed w ith both diabetes mellitus and coronary artery disease. REVIEW OF SYSTEMS: The patient has received both chemotherapy and radiation therapy for treatment o f lung carcinoma. PHYSICAL EXAMINATION: VITAL SIGNS: Temperature 98.2, pulse 79, respirations 18, blood pressure 140/78. GENERAL: A 72-year-old gentleman lying on stretcher in hyperbaric lab in no acute distress. HEENT: Normocephalic, atraumatic. NECK: No nuchal rigidity. CHEST: Clear to auscultation. CARDIAC: Regular rate and rhythm. ABDOMEN: Soft. EXTREMITIES: A wound VAC is in place over the left foot. ASSESSMENT AND PLAN: A 72-year-old gentleman with a past medical history significant for diabetes m ellitus, status post multiple surgical procedures as described above, referred for evaluation for hy perbaric oxygen therapy to augment the healing of the patient's left foot wound. The patient denies any history of congestive heart failure, crushing chest trauma, seizures, spontaneous pneumothorax, recent retinal surgery, or blood disorders including hereditary spherocytosis. Hyperbaric oxygen t herapy will be initiated today. The patient will be treated at 2.0 TAYLOR with each session and lastin g 90 minutes. The patient understands the risks and benefits of hyperbaric oxygen therapy and wishe s to proceed. The length of therapy will depend upon the patient's response to therapy in conjuncti on with serial clinical exams.
== END 2017-10-07 11:24 | disposition home or self-care (01) | DRG 41 ==
LOC: 2NO 15:43 → SURG A 16:14
PROVIDERS: ADMIT Thoracic Surgery (Cardiothoracic Vascular Surgery); ATTEND Thoracic Surgery (Cardiothoracic Vascular Surgery)
PROC: 0Y6Q0Z0 Detachment at Left 1st Toe, Complete, Open Approach (ICD-10-PCS; principal; 2017-09-26)
PROC: 0LBW0ZZ Excision of Left Foot Tendon, Open Approach (ICD-10-PCS; 2017-10-06)
DX: E11.40 Type 2 diabetes mellitus with diabetic neuropathy, unspecified (principal); E11.52 Type 2 diabetes mellitus with diabetic peripheral angiopathy with gangrene; I96 Gangrene, not elsewhere classified; B96.5 Pseudomonas (aeruginosa) (mallei) (pseudomallei) as the cause of diseases classified elsewhere; B95.2 Enterococcus as the cause of diseases classified elsewhere; Z85.118 Personal history of other malignant neoplasm of bronchus and lung; F17.210 Nicotine dependence, cigarettes, uncomplicated; I25.10 Atherosclerotic heart disease of native coronary artery without angina pectoris; E78.00 Pure hypercholesterolemia, unspecified; E78.2 Mixed hyperlipidemia; Z95.1 Presence of aortocoronary bypass graft
CPT/HCPCS: 36415; 36416; 80048; 85025; 87070; 87076; 87077; 87186; 87205; 87324; 87449; 93005; 93010; 94640; A4216; C1751; G0277; J1815; J2001; J2185; J2405; J2543; J2704; J3010; J7050; J7620; S0020

== ENCOUNTER 2017-10-09 14:00 | Outpatient (CLI) | payer MEDICARE, OTHER ==
[2017-10-09] MEDS ORDERED: Lidocaine 4% Topical Sol 50 ML BOT ONE (14:56)
[2017-10-09] MEDS ORDERED: Sodium Chloride 0.9% 15 ML NEB ONE (14:56)
== END 2017-10-09 14:01 | disposition home or self-care (01) ==
LOC: WCC 14:00
PROVIDERS: ATTEND Family Medicine
DX: T81.89XD Other complications of procedures, not elsewhere classified, subsequent encounter (principal)
CPT/HCPCS: 97606; A4218; J2001

== ENCOUNTER 2017-10-13 07:38 | Outpatient (CLI) | payer MEDICARE, OTHER ==
[2017-10-13] MEDS ORDERED: Sodium Chloride 0.9% 15 ML NEB ONE (14:53)
[2017-10-13] MEDS ORDERED: Lidocaine 4% Topical Sol 50 ML BOT ONE (14:53)
== END 2017-10-13 07:39 | disposition home or self-care (01) ==
LOC: WCC 07:38
PROVIDERS: ATTEND Family Medicine
DX: T81.89XD Other complications of procedures, not elsewhere classified, subsequent encounter (principal); S91.302D Unspecified open wound, left foot, subsequent encounter
CPT/HCPCS: 97605; A4218; J2001

== ENCOUNTER 2017-10-15 08:51 | Outpatient (CLI) | payer MEDICARE, OTHER ==
[2017-10-15] MEDS ORDERED: Lidocaine 4% Topical Sol 50 ML BOT ONE (17:44)
[2017-10-15] MEDS ORDERED: Sodium Chloride 0.9% 15 ML NEB ONE (17:44)
== END 2017-10-15 08:52 | disposition home or self-care (01) ==
LOC: WCC 08:51
PROVIDERS: ATTEND Family Medicine
DX: T81.89XD Other complications of procedures, not elsewhere classified, subsequent encounter (principal); S91.302D Unspecified open wound, left foot, subsequent encounter
CPT/HCPCS: 97606; A4218; J2001

== ENCOUNTER 2017-10-23 09:28 | Outpatient (CLI) | payer MEDICARE, OTHER ==
--- NOTE | 2017-10-23 13:44 | PRG ---
DATE OF SERVICE: 10/23/2017 HISTORY: Mr. Grzegorz Oswald is a very pleasant 72-year-old gentleman who presents to the Wound Center f or evaluation of a left foot wound subsequent to incision and debridement on 10/06/2017. Previously, the patient underwent on 09/15/2017, left great toe ray amputation followed by left great toe transm etatarsal amputation and debridement on 09/26/2017. On 08/25/2017, the patient had undergone left co mmon femoral artery to above knee popliteal artery bypass by Dr. Yury Smalls. The patient continue s to receive negative pressure therapy for his left foot wound, now with dressing changes of the woun d VAC here in the Wound Center. PHYSICAL EXAMINATION: VITAL SIGNS: Temperature 97.6, pulse 80, respirations 17, blood pressure 149/66. Accu-Chek 192. EXTREMITIES: A wound of the left foot is present, which measures approximately 12.6 x 8.8 cm. Granu lation tissue is present within the wound margins. No purulent drainage is associated with the wound . Bone is also exposed within the wound margins on exam today. ASSESSMENT AND PLAN: 1. Left foot wound subsequent to multiple surgical procedures as stated above. Negative pressure th erapy will be continued with dressing changes of the wound VAC here in the Wound Center. The patient will be seen by Dr. Smalls in 1 week. I will see Mr. Oswald again in two weeks. 2. Diabetes mellitus. The patient's Accu-Chek in clinic today is 192. The patient has been told th at for optimal wound healing, his blood glucoses should remain below 150. 3. Peripheral vascular disease. 4. Coronary artery disease. 5. Lung carcinoma.
[2017-10-23] MEDS ORDERED: Sodium Chloride 0.9% 15 ML NEB ONE (17:20)
[2017-10-23] MEDS ORDERED: Lidocaine 4% Topical Sol 50 ML BOT ONE (17:20)
== END 2017-10-23 09:29 | disposition home or self-care (01) ==
LOC: WCC 09:28
PROVIDERS: ATTEND Family Medicine
DX: T81.89XD Other complications of procedures, not elsewhere classified, subsequent encounter (principal); E11.9 Type 2 diabetes mellitus without complications; I73.9 Peripheral vascular disease, unspecified; I25.10 Atherosclerotic heart disease of native coronary artery without angina pectoris; C34.90 Malignant neoplasm of unspecified part of unspecified bronchus or lung
CPT/HCPCS: 97139; 97606; G0463; 99203; A4218; J2001

== ENCOUNTER 2017-11-03 15:49 | Inpatient (IN) | payer MEDICARE, OTHER ==
[2017-11-03] MEDS ORDERED: Dextrose 5% in Water 1,000 ML IV PRN (16:26)
[2017-11-03] MEDS ORDERED: Dextrose 50% Abboject 50 ML SYRINGE IVP PRN (16:26)
[2017-11-03] MEDS ORDERED: HYDROcodone/Acetaminophen 5/325 mg Tablet PO PRN (16:26)
[2017-11-03] MEDS ORDERED: Ondansetron HCl/PF 4 MG/2 ML Vial IVP PRN (16:27)
[2017-11-03 16:49] VITALS: BMI 22.9
[2017-11-03 17:08] LABS: Hematocrit 33.7 % (42.0-52.0); Mean Platelet Volume 9.7 fL (7.4-10.4); Red Blood Cell (RBC) Count 4.24 mill/uL (4.70-6.10); White Blood Cell (WBC) Count 7.6 thou/uL (4.8-10.8)
[2017-11-03 17:38] LABS: #Eosinphils 0.1 thou/uL (0.0-0.7); #Lymphocytes 1.1 thou/uL (1.20-3.40); #Monocytes 0.7 thou/uL (0.11-0.59); #Neutrophils 5.8 thou/uL (1.40-6.50); %Basophils 0.1 % (0.0-1.0); %Eosinophils 1.3 % (0.0-10.0); %Lymphocytes 14.5 % (21.0-51.0); %Monocytes 8.6 % (0.0-10.0); Anisocytosis SLIGHT = 6-15 cells (100X) (0-5/hpf); Hypochromia SLIGHT = 6-15 cells (100X) (0-5/hpf); Ovalocytes SLIGHT = 2-5 cells (100X) (0-1/hpf)
[2017-11-03 17:40] LABS: Anion Gap 16 mmol/L (10-20); BUN (Urea Nitrogen) 30 mg/dL (8.4-25.7); Calc. Creatinine Clearance 45 mL/min (70-130); Calcium 9.6 mg/dL (7.8-10.44); Carbon Dioxide 26 mmol/L (23-31); Chloride 100 mmol/L (98-107); Estimated GFR-MDRD 45
[2017-11-03] MEDS: Insulin Regular 300 UNITS/3 ML VIAL SC PRN ×2 (17:53→21:40)
[2017-11-03] MEDS: metFORMIN 500 MG TAB PO SCH (17:53)
[2017-11-03] MEDS: Clindamycin/D5W 900 MG in Premix Bag 1 BAG IVPB SCH ×2 (18:26→21:39)
[2017-11-03] MEDS: Ampicillin/Sulbactam 3 GM, Syringe 1.6 ML in Sterile Water 6.4 ML SLOW IVP SCH ×2 (19:08→23:41)
[2017-11-03] MEDS: Gabapentin 300 MG CAP PO SCH (21:39)
[2017-11-03] MEDS: Atorvastatin Calcium 20 MG TAB PO SCH (21:39)
[2017-11-04] MEDS: Clindamycin/D5W 900 MG in Premix Bag 1 BAG IVPB SCH ×3 (04:47→18:34)
[2017-11-04] MEDS: Ampicillin/Sulbactam 3 GM, Syringe 1.6 ML in Sterile Water 6.4 ML SLOW IVP SCH ×3 (06:11→18:33)
[2017-11-04] MEDS ORDERED: Fentanyl 100 MCG/2 ML VIAL ONE ×2 (06:37→08:52)
[2017-11-04] MEDS ORDERED: Phenylephrine 10 MG/NS 250 ML 250 ML ONE (06:37)
[2017-11-04] MEDS ORDERED: Albuterol Sulfate HFA (OR ONLY) ONE (06:57)
[2017-11-04] MEDS: metFORMIN 500 MG TAB PO SCH ×2 (07:30→17:23)
[2017-11-04] MEDS ORDERED: Promethazine HCl 25 MG/ML VIAL SLOW IVP PRN (08:35)
[2017-11-04] MEDS ORDERED: HYDROmorphone 2 MG/ML VIAL SLOW IVP PRN (08:35)
[2017-11-04] MEDS ORDERED: Morphine Sulfate 2 MG/ML SYRINGE SLOW IVP PRN (08:35)
[2017-11-04] MEDS ORDERED: Meperidine HCl/PF 25 MG/ML VIAL SLOW IVP PRN (08:35)
[2017-11-04] MEDS ORDERED: Ketorolac Tromethamine 30 MG/ML VIAL IVP PRN (08:35)
[2017-11-04] MEDS ORDERED: Promethazine HCl 25 MG/ML VIAL IM PRN (08:35)
[2017-11-04] MEDS ORDERED: Ondansetron HCl/PF 4 MG/2 ML Vial IVP PRN (08:35)
[2017-11-04] MEDS ORDERED: DAPAGLIFLOZIN (FARXIGA) 10 MG TABLET PO SCH (09:00)
[2017-11-04] MEDS ORDERED: Fentanyl 100 MCG/2 ML VIAL SLOW IVP PRN ×2 (09:17)
--- NOTE | 2017-11-04 09:58 | OP ---
DATE OF PROCEDURE: 11/04/2017 PREOPERATIVE DIAGNOSIS: Gangrene in the left foot with nonreconstructable distal peripheral vascular disease. POSTOPERATIVE DIAGNOSIS: Gangrene in the left foot with nonreconstructable distal peripheral vascula r disease. PROCEDURE: Left [id number] amputation. SURGEON: Yury Smalls M.D. ANESTHESIA: General endotracheal. ESTIMATED BLOOD LOSS: 400 mL. PROCEDURE IN DETAIL: After consent was obtained, the patient was brought to the operating room and p laced in the supine position on the operating room table. Appropriate anesthetic monitor was placed and general endotracheal anesthesia induced. Left leg was prepped and draped in usual sterile fashio n. Skin was marked for a posterior flap type incision. Skin incision was made. Immediately there w as significant bleeding from the subcutaneous tissues. Multiple ties were placed to obtain hemostasi s from venous bleeders. The incision was extended through the fascia with electrocautery. The anter ior tibial muscles were divided. The posterior tibial and peroneal arteries were divided between tie s. Tibial nerve was divided between ties. The periosteum was elevated off both the tibia and fibula . Tibia was divided with Gigli saw. Fibula was sharply divided with bone liza. Tibia was smoothe d anteriorly, forming a smooth anterior surface of the proximal tibial plateau. Posterior portion of the amputation was completed with amputation knife. Multiple ties again were placed for hemostasis. The wound was copiously irrigated. After adequate hemostasis had been obtained, fascia was reappro ximated with 0 Vicryl suture. Layered closure was then performed with skin abbey. A fluff dressin g was applied. The patient was awakened, extubated, and transferred to the recovery room in stable c ondition. Needle, sponge, and instrument counts were all reported as correct at the end of the proce dure.
[2017-11-04] MEDS: Gabapentin 300 MG CAP PO SCH ×2 (10:25→20:55)
[2017-11-04] MEDS: HYDROcodone/Acetaminophen 5/325 mg Tablet PO PRN ×2 (10:30→18:33)
[2017-11-04] MEDS ORDERED: Succinylcholine Chloride 20 MG/ML 10 ml SYRINGE FS ONE (14:51)
[2017-11-04] MEDS ORDERED: Ondansetron HCl/PF 4 MG/2 ML Vial ONE (14:51)
[2017-11-04] MEDS ORDERED: Propofol 200 MG/20 ML VIAL ONE (14:51)
[2017-11-04] MEDS ORDERED: PHENYLEPHRINE-NS 100 MCG/ML 10 ML SYRINGE ONE (14:51)
[2017-11-04] MEDS ORDERED: Lidocaine 1% PF 5 ML VIAL ONE (14:51)
[2017-11-04] MEDS: Insulin Regular 300 UNITS/3 ML VIAL SC PRN ×2 (17:23→20:57)
[2017-11-04] MEDS: Atorvastatin Calcium 20 MG TAB PO SCH (20:55)
[2017-11-05] MEDS: Ampicillin/Sulbactam 3 GM, Syringe 1.6 ML in Sterile Water 6.4 ML SLOW IVP SCH ×4 (00:32→18:29)
[2017-11-05] MEDS: Clindamycin/D5W 900 MG in Premix Bag 1 BAG IVPB SCH ×4 (00:33→18:29)
[2017-11-05] MEDS: HYDROcodone/Acetaminophen 5/325 mg Tablet PO PRN ×2 (03:51→13:12)
[2017-11-05] MEDS: metFORMIN 500 MG TAB PO SCH ×2 (08:08→17:38)
[2017-11-05] MEDS: Gabapentin 300 MG CAP PO SCH ×2 (08:08→21:46)
[2017-11-05] MEDS: Insulin Regular 300 UNITS/3 ML VIAL SC PRN ×2 (12:18→22:02)
[2017-11-05] MEDS ORDERED: HYDROcodone/Acetaminophen 5/325 mg Tablet PO PRN ×2 (17:04)
[2017-11-05] MEDS: Atorvastatin Calcium 20 MG TAB PO SCH (21:47)
[2017-11-06] MEDS: Clindamycin/D5W 900 MG in Premix Bag 1 BAG IVPB SCH ×2 (00:35→06:44)
[2017-11-06] MEDS: Ampicillin/Sulbactam 3 GM, Syringe 1.6 ML in Sterile Water 6.4 ML SLOW IVP SCH ×2 (00:35→06:44)
[2017-11-06] MEDS: Gabapentin 300 MG CAP PO SCH (08:38)
[2017-11-06] MEDS: metFORMIN 500 MG TAB PO SCH (08:38)
[2017-11-06 09:25] VITALS: BP 107/51; TEMP 98.1
[2017-11-06] MEDS: Insulin Regular 300 UNITS/3 ML VIAL SC PRN (11:38)
== END 2017-11-06 11:50 | DRG 241 ==
LOC: SURG A 15:56
PROVIDERS: ADMIT Thoracic Surgery (Cardiothoracic Vascular Surgery); ATTEND Thoracic Surgery (Cardiothoracic Vascular Surgery)
PROC: 0Y6J0Z1 Detachment at Left Lower Leg, High, Open Approach (ICD-10-PCS; principal; 2017-11-04)
DX: I70.262 Atherosclerosis of native arteries of extremities with gangrene, left leg (principal); E11.40 Type 2 diabetes mellitus with diabetic neuropathy, unspecified; I70.211 Atherosclerosis of native arteries of extremities with intermittent claudication, right leg; E78.2 Mixed hyperlipidemia; I25.10 Atherosclerotic heart disease of native coronary artery without angina pectoris; F17.220 Nicotine dependence, chewing tobacco, uncomplicated; Z95.1 Presence of aortocoronary bypass graft; Z89.412 Acquired absence of left great toe; Z85.118 Personal history of other malignant neoplasm of bronchus and lung; Z90.2 Acquired absence of lung [part of]
CPT/HCPCS: 36415; 36416; 80048; 85025; 88307; A4216; G8978-GP-CL; G8979-GP-CJ; G8987-GO-CJ; G8988-GO-CI; J0295; J1815; J2001; J2405; J2704; J3010; J3490

== ENCOUNTER 2018-02-05 12:05 | Emergency (ER) | payer MEDICARE, OTHER ==
--- NOTE | 2018-02-05 13:18 | ULT ---
RIGHT LOWER EXTREMITY ARTERIAL DOPPLER ULTRASOUND: Date: 02/05/18 COMPARISON: None. HISTORY: Leg pain, assess for arterial patency. TECHNIQUE: Multiplanar Forrester scale sonographic imaging of the arterial structures of the right lower extremity ob tained with color flow and spectral analysis. FINDINGS: The right common femoral artery is patent and demonstrates an abnormal monophasic waveform with a pea k systolic velocity of 105 cm/second. The proximal aspect of the right profunda femoral artery is pat ent with an abnormal monophasic waveform and a peak systolic velocity of 237 cm/sec, elevated. There is minimal blood flow with a high resistance, low amplitude waveform within the proximal right superficial femoral artery with a peak systolic velocity of approximately 12 cm/second. There is mini mal blood flow approaching occlusion within the proximal, mid, and distal right superficial femoral a rtery. There is a tardus parvus monophasic waveform within the right popliteal artery with a peak sys tolic velocity of 71 cm/second. The distal posterior tibial artery is patent with an abnormal low amp litude monophasic waveform and a peak systolic velocity of 15 cm/second. There is minimal slow blood flow in the right dorsalis pedis artery. IMPRESSION: Severe diffuse arterial disease, which includes occlusion of a large portion of the right superficial femoral artery with distal reconstitution of right popliteal artery. There is some blood flow within the posterior tibial artery and dorsalis pedis artery, but otherwise, no runoff vessel flow is appre ciated. Recommend further assessment via CT angiogram. Dr. Giordano made aware at 1255 hours on 02/05/18. CODE CR. POS: QUOC
[2018-02-05 13:25] LABS: #Eosinphils 0.2 thou/uL (0.0-0.7); #Lymphocytes 1.3 thou/uL (1.20-3.40); #Monocytes 0.5 thou/uL (0.11-0.59); #Neutrophils 4.2 thou/uL (1.40-6.50); %Basophils 0.1 % (0.0-1.0); %Eosinophils 2.8 % (0.0-10.0); %Lymphocytes 20.4 % (21.0-51.0); %Monocytes 8.4 % (0.0-10.0); %Neutrophils 68.2 % (42.0-75.0); Hemoglobin 13.9 g/dL (14.0-18.0); Mean Corpuscular Volume 78.3 fl (80.0-94.0); Mean Platelet Volume 10.4 fL (7.4-10.4); Platelet Count 153 thou/uL (130-400); RBC Distribution Width 17.7 % (11.5-14.5); Red Blood Cell (RBC) Count 5.55 mill/uL (4.70-6.10); White Blood Cell (WBC) Count 6.2 thou/uL (4.8-10.8)
[2018-02-05 13:31] LABS: PTT 32.2 SEC (22.9-36.1); Prothrombin Time 13.4 SEC (12.0-14.7)
[2018-02-05] MEDS ORDERED: ISOVUE-370 76%-LOCM 1 ML ONE (13:36)
[2018-02-05 13:46] LABS: ALT (SGPT) 15 U/L (8-55); AST (SGOT) 17 U/L (5-34); Alkaline Phosphatase 72 U/L (40-150); Anion Gap 16 mmol/L (10-20); BUN (Urea Nitrogen) 26 mg/dL (8.4-25.7); Bilirubin, Total 0.3 mg/dL (0.2-1.2); Calc. Creatinine Clearance 0 mL/min (70-130); Calcium 9.8 mg/dL (7.8-10.44); Carbon Dioxide 23 mmol/L (23-31); Chloride 106 mmol/L (98-107); Estimated GFR-MDRD 66; Globulin 3.8 g/dL (2.4-3.5); Glucose 127 mg/dL (83-110); Potassium 4.5 mmol/L (3.5-5.1); Protein, Total 7.8 g/dL (5.8-8.1); Sodium 140 mmol/L (136-145)
[2018-02-05 13:50] LABS: Troponin I Less than 0.010 ng/mL (< 0.028)
--- NOTE | 2018-02-05 15:11 | CT ---
CT ARTERIOGRAM ABDOMEN AND PELVIS WITH BILATERAL LOWER EXTREMITY RUNOFF WITH IV CONTRAST AND 3D MIP I LAKSHMI: Date: 02/05/18 HISTORY: Vascular disease. Claudication. Left leg amputation. FINDINGS: Dystrophic calcifications apparent at the dome of the liver. Heterogeneous areas of decreased enhance ment involving the spleen may be related to hemangiomas or areas of vascular insult. Small hiatal her antonia is apparent. There are degenerative changes of the lumbar spine. Prominent calcification throughout the arterial structures. Abdominal aorta is patent. Stenosis at th e proximal celiac trunk is approximately 50%. There is critical stenosis of the origin of the superio r mesenteric artery. No flow is seen through the area of greatest stenosis, although the fact that th ere is flow more distally, not with the appearance of retrograde flow from collateralization, suggest that there is not a complete occlusion. Mild stenosis of each renal artery. Significant stenosis at origin of inferior mesenteric artery. Right common iliac artery is patent. Short segment high grade stenosis right external iliac artery. T here is dense calcification with mild stenosis right common femoral artery. Right femoral bypass show s no internal flow. There is intermittent flow seen throughout the severely diseased deep femoral art jared and branches. No flow is apparent within the majority of the popliteal artery. There is intermitt ent flow within the small vessels of the right lower leg. On the left, common iliac artery is patent. There is dense calcification and circumferential narrowin g of the external iliac artery with approximately 70% stenosis. The common femoral artery shows dense calcification. Andreafski femoral artery is patent. There is flow within the left fem-pop bypass, with c ontrast in the left popliteal artery and trifurcation. Amputation below the knee. IMPRESSION: 1. Severe vascular disease as detailed above, including persistent long segment high grade stenosis of the superior mesenteric artery. There is occlusion of the right fem-pop bypass and [place] femoral artery, with faint collateralization to the small vessels of the right lower leg. Left fem-pop bypass is patent. 2. Left mhwkj-xur-beti amputation. POS: QUOC
--- NOTE | 2018-02-05 17:29 | CON ---
DATE OF CONSULTATION: 02/05/2018 Mr. Owsald is a 72-year-old gentleman who I have known for quite some time. He has a history of long standing peripheral vascular disease and has recently stopped chewing tobacco. He has undergone a le ft below knee amputation at the end of 2017. This is almost healed to where he can begin wearing his prosthesis. He has an approximately 4-5 day history of a cool right foot. He is status post right femoral to abo ve knee popliteal artery bypass utilizing ringed Propaten-coated [place]. Saphenous vein was inadeq uate for use at the time of this procedure. He was otherwise asymptomatic. He had no pain in his fo ot. He has had no ulcerations or other problems with his foot. His foot since coming to the ER yariel en much better. The temperature has increased to where it is essentially room temperature at this po int. He has again no pain or ulcerations. He underwent CT angiogram evaluation. His aorta and ying c systems were without significant stenosis. The stents in his iliac are widely patent. The femoral to popliteal bypass is occluded. He has a patent profunda. His superficial femoral artery is occlu ded. At the time of his femoral popliteal bypass noted in his operative note that his popliteal justice ry was heavily calcified and there was only one place that could be bypassed to. The runoff at that time was poor. He has runoff via peroneal artery to his foot, but again there is no usable venous co nduit left. Left saphenous was harvested for his heart bypass. I had a long discussion with he and his . We are going to reinstitute Plavix and his medical regimen and see him back in a couple of weeks. This is not a good finding. He is certainly at risk for further complications with his righ t leg and even amputation at some point.
--- NOTE | 2018-02-28 21:19 | EKG ---
Test Reason : FACILITATE DIAGNOSIS Blood Pressure : / mmHG Vent. Rate : 074 BPM Atrial Rate : 074 BPM P-R Int : 192 ms QRS Dur : 076 ms QT Int : 388 ms P-R-T Axes : -09 068 072 degrees QTc Int : 430 ms Normal sinus rhythm Normal ECG Confirmed by HO PATTON MD ([id number]), videotape editor MARSHALL SANCHEZ ([id number]) on 02/28/2018 9:18:51 PM Referred By: Confirmed By:HO PATTON MD
== END 2018-02-05 15:05 | disposition home or self-care (01) ==
LOC: ERS 12:05
DX: E11.51 Type 2 diabetes mellitus with diabetic peripheral angiopathy without gangrene (principal); I25.10 Atherosclerotic heart disease of native coronary artery without angina pectoris; Z87.891 Personal history of nicotine dependence; Z79.84 Long term (current) use of oral hypoglycemic drugs; Z79.82 Long term (current) use of aspirin; Z79.899 Other long term (current) drug therapy
CPT/HCPCS: 75635; 80053; 84484; 85025; 85610; 85730; 93005; 93923

== ENCOUNTER 2018-03-19 08:04 | Inpatient (IN) | payer MEDICARE, OTHER ==
[2018-03-18 12:25] VITALS: BMI 25.8
[2018-03-19 09:28] LABS: #Eosinphils 0.1 thou/uL (0.0-0.7); #Lymphocytes 0.9 thou/uL (1.20-3.40); #Monocytes 0.8 thou/uL (0.11-0.59); %Basophils 0.4 % (0.0-1.0); %Eosinophils 0.9 % (0.0-10.0); %Lymphocytes 8.6 % (21.0-51.0); %Neutrophils 83.1 % (42.0-75.0); Mean Corpuscular HGB CONC 31.6 g/dL (32.0-36.0); Mean Corpuscular Volume 82.3 fl (80.0-94.0); Mean Platelet Volume 10.1 fL (7.4-10.4); Platelet Count 163 thou/uL (130-400); RBC Distribution Width 17.8 % (11.5-14.5); Red Blood Cell (RBC) Count 5.39 mill/uL (4.70-6.10); White Blood Cell (WBC) Count 10.8 thou/uL (4.8-10.8)
[2018-03-19] MEDS ORDERED: Piperacillin/Tazobactam 3.375 GM in Sodium Chloride 0.9% 100 ML IVPB SCH (09:30)
[2018-03-19 09:34] LABS: INR-International Normal Ratio 1.1; PTT 26.9 SEC (22.9-36.1); Prothrombin Time 14.2 SEC (12.0-14.7)
[2018-03-19 09:52] LABS: BUN (Urea Nitrogen) 20 mg/dL (8.4-25.7); Calc. Creatinine Clearance 78 mL/min (70-130); Calcium 9.8 mg/dL (7.8-10.44); Carbon Dioxide 14 mmol/L (23-31); Chloride 107 mmol/L (98-107); Estimated GFR-MDRD 74; Glucose 163 mg/dL (83-110); Sodium 136 mmol/L (136-145)
[2018-03-19 10:16] LABS: Anion Gap 20 mmol/L (10-20)
[2018-03-19] MEDS ORDERED: Heparin 5,000 UNITS/ML VIAL ONE (10:38)
[2018-03-19] MEDS ORDERED: Protamine Sulfate 50 MG/5 ML VIAL ONE (10:44)
[2018-03-19] MEDS ORDERED: Fentanyl 100 MCG/2 ML VIAL ONE (10:58)
[2018-03-19] MEDS ORDERED: Morphine 4 MG/ML VIAL ONE (10:59)
[2018-03-19] MEDS ORDERED: PHENYLEPHRINE-NS 100 MCG/ML 10 ML SYRINGE ONE (12:58)
[2018-03-19] MEDS ORDERED: Heparin 10,000 UNITS/ 10 ML VIAL ONE (12:58)
[2018-03-19] MEDS ORDERED: PROPOFOL 200 MG/20 ML VIAL ONE (12:58)
[2018-03-19] MEDS ORDERED: Promethazine HCl 25 MG/ML VIAL IM/IV PRN (15:15)
[2018-03-19] MEDS ORDERED: Ondansetron HCl/PF 4 MG/2 ML Vial IVP PRN ×2 (15:15→16:09)
--- NOTE | 2018-03-19 15:20 | OP ---
DATE OF OPERATION: 03/19/2018 PREOPERATIVE DIAGNOSIS: Peripheral vascular disease with ischemic, threatened right lower extremity. POSTOPERATIVE DIAGNOSIS: Peripheral vascular disease with ischemic, threatened right lower extremity . PROCEDURES: 1. Right common femoral to posterior tibial artery composite bypass utilizing 6 mm ringed Propaten-c oated [place]Natan, anastomosed to reverse saphenous vein harvested from the distal right lower extremity . 2. On-table arteriograms through the distal anastomosis to confirm patency. SURGEON: Yury Smalls M.D. ANESTHESIA: General endotracheal. ESTIMATED BLOOD LOSS: 250. SPECIMENS: None. TOTAL CONTRAST: 19 mL. TOTAL FLUOROSCOPY TIME: 1 minute 13 seconds. DESCRIPTION OF PROCEDURE: After consent was obtained, the patient was brought to the operating room and placed supine position on the operating room table. Appropriate anesthetic monitor was placed an d general endotracheal anesthesia induced. Ultrasound was used to interrogate the distal right great er saphenous vein. This was the only segment of vein remaining from all of his previous procedures. The saphenous vein was adequate for approximately 10 cm. Right leg was prepped and draped in usual sterile fashion. The right groin previous anastomosis was reopened. Using cautery and sharp dissect ion, the previous fem-pop graft was carefully dissected free down to its anastomosis with the common femoral artery. Enough graft was dissected free to allow for clamping and anastomosis at the lopes. The distal greater saphenous vein was then harvested through 3 skip incisions. This was a small christy paramjit vein, but adequate for the distal portion of the bypass. This was harvested and then prepared fo r use as a graft. The previous above-knee incision was opened. Dissection down to the previous taryn t was performed and this was followed down onto the [place] popliteal artery. This was followed dista lly down to the posterior tibial artery. Posterior tibial artery was controlled both proximally and distally with vessel loops. Patient was given 7500 units of heparin. A 6-mm ringed Propaten-coated [place] graft was tunneled from knee up to the groin. The graft was clamped proximally. An incisio n was made on the graft to allow for anastomosis of graft-graft. This anastomosis was performed with running 6-0 Prolene suture. On release of the clamp, there was excellent flow through the graft. T he anastomosis was made hemostatic through multiple 6-0 and 7-0 sutures and TachoSil. The distal an astomosis was then addressed. Greater saphenous vein was anastomosed to the posterior tibial artery. After completion of the anastomosis, hand-injected arteriogram was performed confirming patency int o a large collateral network that fed down into the distal tibial arteries to the foot. This vein gr aft was then spatulated proximally and anastomosed to the [place] graft within the incision. Approx imately 8 cm of vein graft were used to perform this portion of the bypass. This formed a composite graft consisting of [place] to saphenous vein to posterior tibial artery. The wounds were all then copiously irrigated. A 25 mg of protamine was given. Hemostasis was ensured. Wounds were closed in layers, and skin clips applied to the distal incisions. The proximal groin incision was closed with a subcuticular 3-0. At completion, there was a Doppler signal within the graft and within the poste rior tibial artery within the calf. There is also good Doppler signal in dorsalis pedis at the foot. The patient tolerated the procedure well, was awakened, extubated, and transferred to recovery room in stable condition. Needle, sponge, and instrument counts were all reported as correct at the end of the procedure.
[2018-03-19] MEDS ORDERED: Promethazine HCl 25 MG/ML VIAL PR PRN (16:09)
[2018-03-19] MEDS ORDERED: Dextrose 50% Abboject 50 ML SYRINGE SLOW IVP PRN (16:09)
[2018-03-19] MEDS ORDERED: Acetaminophen 325 MG TAB PO PRN (16:09)
[2018-03-19] MEDS ORDERED: Fentanyl 100 MCG/2 ML VIAL SLOW IVP PRN ×2 (16:09)
[2018-03-19] MEDS ORDERED: HYDROcodone/Acetaminophen 5/325 mg Tablet PO PRN (16:09)
[2018-03-19] MEDS ORDERED: Promethazine HCl 25 MG/ML VIAL IM PRN (16:09)
[2018-03-19] MEDS ORDERED: Dextrose 5% in Water 1,000 ML IV PRN (16:09)
--- NOTE | 2018-03-19 16:32 | EKG ---
Test Reason : PREOP Blood Pressure : / mmHG Vent. Rate : 087 BPM Atrial Rate : 087 BPM P-R Int : 174 ms QRS Dur : 086 ms QT Int : 360 ms P-R-T Axes : 014 093 033 degrees QTc Int : 433 ms Normal sinus rhythm Nonspecific ST abnormality Rightward axis Borderline ECG Confirmed by DUNIA SMIS ([id number]) on 03/19/2018 4:32:03 PM Referred By: Kala TREVIÑO Confirmed By:DUNIA SIMS
[2018-03-19] MEDS: HYDROcodone/Acetaminophen 5/325 mg Tablet PO PRN ×2 (17:28→23:01)
[2018-03-19] MEDS: metFORMIN 500 MG TAB PO SCH (17:28)
[2018-03-19] MEDS: Piperacillin/Tazobactam 3.375 GM in Sodium Chloride 0.9% 100 ML IVPB SCH ×2 (17:28→23:01)
[2018-03-19] MEDS: glyBURIDE 5 MG TAB PO SCH (17:29)
[2018-03-19] MEDS: D5 1/2 NS w/20 mEq KCL 1,000 ML IV SCH (17:45)
[2018-03-19] MEDS: Simvastatin 40 MG TAB PO SCH (20:24)
[2018-03-19] MEDS: Gabapentin 300 MG CAP PO SCH (20:24)
[2018-03-20] MEDS: D5 1/2 NS w/20 mEq KCL 1,000 ML IV SCH ×3 (04:09→23:48)
[2018-03-20] MEDS: HYDROcodone/Acetaminophen 5/325 mg Tablet PO PRN ×4 (05:27→20:55)
[2018-03-20] MEDS: Piperacillin/Tazobactam 3.375 GM in Sodium Chloride 0.9% 100 ML IVPB SCH ×3 (05:27→17:47)
[2018-03-20 05:41] LABS: #Eosinphils 0.2 thou/uL (0.0-0.7); #Lymphocytes 1.1 thou/uL (1.20-3.40); #Monocytes 0.8 thou/uL (0.11-0.59); %Basophils 0.2 % (0.0-1.0); %Eosinophils 2.7 % (0.0-10.0); %Lymphocytes 15.1 % (21.0-51.0); %Monocytes 11.4 % (0.0-10.0); %Neutrophils 70.6 % (42.0-75.0); Hemoglobin 11.4 g/dL (14.0-18.0); Mean Corpuscular Hemoglobin 25.8 pg (27.0-31.0); Mean Corpuscular Volume 80.6 fl (80.0-94.0); Mean Platelet Volume 9.8 fL (7.4-10.4); Platelet Count 139 thou/uL (130-400); RBC Distribution Width 17.5 % (11.5-14.5); Red Blood Cell (RBC) Count 4.42 mill/uL (4.70-6.10)
[2018-03-20 05:44] LABS: Anion Gap 14 mmol/L (10-20); BUN (Urea Nitrogen) 15 mg/dL (8.4-25.7); Calc. Creatinine Clearance 83 mL/min (70-130); Calcium 8.6 mg/dL (7.8-10.44); Carbon Dioxide 20 mmol/L (23-31); Chloride 108 mmol/L (98-107); Estimated GFR-MDRD 80; Glucose 65 mg/dL (83-110); Sodium 138 mmol/L (136-145)
[2018-03-20] MEDS: Gabapentin 300 MG CAP PO SCH ×2 (08:53→20:55)
[2018-03-20] MEDS: Clopidogrel Bisulfate 75 MG TAB PO SCH (08:53)
[2018-03-20] MEDS: Aspirin 81 mg Enteric Coated Tablet PO SCH (08:53)
[2018-03-20] MEDS: metFORMIN 500 MG TAB PO SCH ×2 (08:53→17:47)
[2018-03-20] MEDS ORDERED: (Dapagliflozin Propanediol [Farxiga] 10 MG) PO SCH (09:00)
[2018-03-20] MEDS ORDERED: INSULIN DEGLUDEC 50 UNIT SQ SCH (09:00)
[2018-03-20] MEDS: glyBURIDE 5 MG TAB PO SCH (17:47)
[2018-03-20] MEDS: Simvastatin 40 MG TAB PO SCH (20:55)
[2018-03-21] MEDS: Piperacillin/Tazobactam 3.375 GM in Sodium Chloride 0.9% 100 ML IVPB SCH ×4 (00:01→16:57)
[2018-03-21 04:34] LABS: #Eosinphils 0.3 thou/uL (0.0-0.7); #Lymphocytes 1.1 thou/uL (1.20-3.40); #Monocytes 0.7 thou/uL (0.11-0.59); #Neutrophils 4.8 thou/uL (1.40-6.50); %Basophils 0.3 % (0.0-1.0); %Eosinophils 4.8 % (0.0-10.0); %Lymphocytes 16.4 % (21.0-51.0); %Monocytes 9.7 % (0.0-10.0); %Neutrophils 68.8 % (42.0-75.0); Hemoglobin 10.6 g/dL (14.0-18.0); Mean Corpuscular HGB CONC 33.2 g/dL (32.0-36.0); Mean Corpuscular Hemoglobin 26.8 pg (27.0-31.0); Mean Corpuscular Volume 80.7 fl (80.0-94.0); Mean Platelet Volume 10.1 fL (7.4-10.4); Platelet Count 143 thou/uL (130-400); RBC Distribution Width 17.3 % (11.5-14.5); Red Blood Cell (RBC) Count 3.95 mill/uL (4.70-6.10); White Blood Cell (WBC) Count 6.9 thou/uL (4.8-10.8)
[2018-03-21 05:04] LABS: Anion Gap 9 mmol/L (10-20); BUN (Urea Nitrogen) 15 mg/dL (8.4-25.7); Calc. Creatinine Clearance 73 mL/min (70-130); Calcium 8.8 mg/dL (7.8-10.44); Carbon Dioxide 24 mmol/L (23-31); Chloride 107 mmol/L (98-107); Estimated GFR-MDRD 69; Glucose 149 mg/dL (83-110); Potassium 4.2 mmol/L (3.5-5.1); Sodium 136 mmol/L (136-145)
[2018-03-21] MEDS: HYDROcodone/Acetaminophen 5/325 mg Tablet PO PRN ×4 (06:25→22:44)
[2018-03-21] MEDS: Gabapentin 300 MG CAP PO SCH ×2 (08:52→22:44)
[2018-03-21] MEDS: metFORMIN 500 MG TAB PO SCH ×2 (08:52→16:57)
[2018-03-21] MEDS: Clopidogrel Bisulfate 75 MG TAB PO SCH (08:52)
[2018-03-21] MEDS: Aspirin 81 mg Enteric Coated Tablet PO SCH (08:53)
[2018-03-21] MEDS: D5 1/2 NS w/20 mEq KCL 1,000 ML IV SCH ×2 (08:54→18:27)
[2018-03-21] MEDS: glyBURIDE 5 MG TAB PO SCH (16:56)
[2018-03-21] MEDS: Simvastatin 40 MG TAB PO SCH (22:44)
[2018-03-22] MEDS: Piperacillin/Tazobactam 3.375 GM in Sodium Chloride 0.9% 100 ML IVPB SCH ×4 (00:10→17:14)
[2018-03-22] MEDS: D5 1/2 NS w/20 mEq KCL 1,000 ML IV SCH ×2 (01:25→19:59)
[2018-03-22] MEDS: HYDROcodone/Acetaminophen 5/325 mg Tablet PO PRN ×3 (08:40→22:14)
[2018-03-22] MEDS: metFORMIN 500 MG TAB PO SCH ×2 (09:00→17:13)
[2018-03-22] MEDS: Aspirin 81 mg Enteric Coated Tablet PO SCH (09:00)
[2018-03-22] MEDS: Clopidogrel Bisulfate 75 MG TAB PO SCH (09:00)
[2018-03-22] MEDS: Gabapentin 300 MG CAP PO SCH ×2 (09:00→22:15)
[2018-03-22] MEDS: HumaLOG 300 UNITS/3 ML VIAL SC PRN (12:22)
[2018-03-22] MEDS: glyBURIDE 5 MG TAB PO SCH (18:22)
[2018-03-22] MEDS: Simvastatin 40 MG TAB PO SCH (22:15)
[2018-03-23] MEDS: Piperacillin/Tazobactam 3.375 GM in Sodium Chloride 0.9% 100 ML IVPB SCH ×4 (01:48→17:54)
[2018-03-23] MEDS: D5 1/2 NS w/20 mEq KCL 1,000 ML IV SCH ×3 (01:49→21:45)
[2018-03-23] MEDS ORDERED: Bupivacaine 0.25% HCL 30 ML VIAL ONE (07:06)
[2018-03-23] MEDS ORDERED: Fentanyl 100 MCG/2 ML VIAL ONE (07:24)
--- NOTE | 2018-03-23 08:20 | OP ---
DATE OF OPERATION: 03/23/2018 PREOPERATIVE DIAGNOSIS: Gangrene of the right fifth toe. POSTOPERATIVE DIAGNOSIS: Gangrene of the right fifth toe. PROCEDURE: Right fifth toe ray amputation. SURGEON: Yury Smalls M.D. ANESTHESIA: General endotracheal - Dr. Roman Bautista. ESTIMATED BLOOD LOSS: Minimal. DESCRIPTION OF PROCEDURE: After consent was obtained, the patient was brought to the operating room and placed supine position on the operating room table. Appropriate anesthetic monitor was placed an d general endotracheal anesthesia induced. Right foot was prepped and draped in usual sterile fashio n. A circumferential incision was made around the base of the right toe. The toe was debrided back to the metatarsal head. Further debridement of nonviable skin and subcutaneous tissue was performed. The metatarsal head was debrided back to bleeding metatarsal. The wound was then irrigated copious ly and packed. The patient tolerated the procedure well and was transferred to recovery room in stab le condition.
[2018-03-23] MEDS ORDERED: Loratadine 10 MG TAB PO PRN (08:21)
[2018-03-23] MEDS: Aspirin 81 mg Enteric Coated Tablet PO SCH (09:02)
[2018-03-23] MEDS: Gabapentin 300 MG CAP PO SCH ×2 (09:02→21:46)
[2018-03-23] MEDS: Clopidogrel Bisulfate 75 MG TAB PO SCH (09:02)
[2018-03-23] MEDS: metFORMIN 500 MG TAB PO SCH ×2 (09:02→17:55)
[2018-03-23] MEDS: HYDROcodone/Acetaminophen 5/325 mg Tablet PO PRN ×2 (09:03→15:57)
[2018-03-23] MEDS: HumaLOG 300 UNITS/3 ML VIAL SC PRN (13:06)
[2018-03-23] MEDS ORDERED: PROPOFOL 200 MG/20 ML VIAL ONE (15:07)
[2018-03-23] MEDS: glyBURIDE 5 MG TAB PO SCH (17:55)
[2018-03-23] MEDS: Simvastatin 40 MG TAB PO SCH (21:46)
[2018-03-24] MEDS: Piperacillin/Tazobactam 3.375 GM in Sodium Chloride 0.9% 100 ML IVPB SCH (00:09)
[2018-03-24] MEDS: HYDROcodone/Acetaminophen 5/325 mg Tablet PO PRN ×2 (04:10→11:16)
[2018-03-24] MEDS: D5 1/2 NS w/20 mEq KCL 1,000 ML IV SCH (05:10)
[2018-03-24] MEDS: HumaLOG 300 UNITS/3 ML VIAL SC PRN (06:00)
[2018-03-24 07:56] VITALS: TEMP 98.4
[2018-03-24 08:31] VITALS: BP 145/72
[2018-03-24] MEDS: metFORMIN 500 MG TAB PO SCH (08:54)
[2018-03-24] MEDS: Gabapentin 300 MG CAP PO SCH (08:55)
[2018-03-24] MEDS: Clopidogrel Bisulfate 75 MG TAB PO SCH (08:56)
[2018-03-24] MEDS: Aspirin 81 mg Enteric Coated Tablet PO SCH (08:56)
[2018-03-24] MEDS ORDERED: Sulfameth/Trimethoprim DS 800-160mg TAB PO SCH (09:00)
--- NOTE | 2018-03-24 12:14 | DIS ---
DATE OF ADMISSION: 03/19/2018 DATE OF DISCHARGE: 03/24/2018 DIAGNOSIS: Peripheral vascular disease with ischemic right lower extremity and gangrene of the right fifth toe. PROCEDURES: 1. Right femoral to posterior tibial composite graft utilizing 6 mm ringed PUPA-coated [place]-Natan anas tomosed to a short segment of saphenous vein passed into the posterior tibial artery. 2. Right fifth toe ray amputation. DISCHARGE MEDICATIONS: Unchanged with the exception of the addition of Bactrim-DS mg 1-2 p.o. b.i.d. for 10 days. DESCRIPTION OF HOSPITAL STAY: Mr. Oswald was admitted with gangrenous right fifth toe. He underwent right femoral to posterior tibial artery bypass and subsequent right fifth toe amputation. He has b een set up for home wound care. He is going to follow up with me in 2 weeks.
== END 2018-03-24 11:34 | disposition home health service (06) | DRG 253 ==
LOC: SURG A 08:04 → SJJU 14:43
PROVIDERS: ADMIT Thoracic Surgery (Cardiothoracic Vascular Surgery); ATTEND Thoracic Surgery (Cardiothoracic Vascular Surgery)
PROC: 041K09N Bypass Right Femoral Artery to Posterior Tibial Artery with Autologous Venous Tissue, Open Approach (ICD-10-PCS; 2018-03-19)
PROC: 041K0JN Bypass Right Femoral Artery to Posterior Tibial Artery with Synthetic Substitute, Open Approach (ICD-10-PCS; 2018-03-19)
PROC: 06BP0ZZ Excision of Right Saphenous Vein, Open Approach (ICD-10-PCS; 2018-03-19)
PROC: 0Y6Y0Z0 Detachment at Left 5th Toe, Complete, Open Approach (ICD-10-PCS; principal; 2018-03-23)
DX: E11.52 Type 2 diabetes mellitus with diabetic peripheral angiopathy with gangrene (principal); I70.261 Atherosclerosis of native arteries of extremities with gangrene, right leg; E11.40 Type 2 diabetes mellitus with diabetic neuropathy, unspecified; I70.213 Atherosclerosis of native arteries of extremities with intermittent claudication, bilateral legs; I25.10 Atherosclerotic heart disease of native coronary artery without angina pectoris; Z79.82 Long term (current) use of aspirin; Z79.899 Other long term (current) drug therapy; Z95.1 Presence of aortocoronary bypass graft; Z89.512 Acquired absence of left leg below knee
CPT/HCPCS: 36415; 36416; 76001; 80048; 85025; 85610; 85730; 86850; 86900; 86901; 93005; 93010; G8978-GP-CI; G8979-GP-CI; J1644; J2270; J2543; J2704; J2720; J3010; J7050; S0020

== ENCOUNTER 2018-04-03 20:12 | Inpatient (IN) | payer MEDICARE, OTHER ==
[2018-04-03] MEDS ORDERED: Ondansetron ODT 4 MG TAB ONE (21:42)
[2018-04-03] MEDS ORDERED: Morphine 4 MG/ML VIAL ONE (21:42)
[2018-04-03 22:27] LABS: #Eosinphils 0.4 thou/uL (0.0-0.7); #Lymphocytes 1.3 thou/uL (1.20-3.40); #Monocytes 0.9 thou/uL (0.11-0.59); #Neutrophils 7.3 thou/uL (1.40-6.50); %Basophils 0.2 % (0.0-1.0); %Eosinophils 3.8 % (0.0-10.0); %Lymphocytes 12.8 % (21.0-51.0); %Monocytes 9.3 % (0.0-10.0); Hemoglobin 11.1 g/dL (14.0-18.0); Mean Corpuscular HGB CONC 32.7 g/dL (32.0-36.0); Mean Corpuscular Hemoglobin 26.3 pg (27.0-31.0); Mean Corpuscular Volume 80.3 fl (80.0-94.0); Platelet Count 218 thou/uL (130-400); RBC Distribution Width 17.3 % (11.5-14.5); Red Blood Cell (RBC) Count 4.23 mill/uL (4.70-6.10); White Blood Cell (WBC) Count 9.9 thou/uL (4.8-10.8)
[2018-04-03 22:32] LABS: INR-International Normal Ratio 1.1; Prothrombin Time 14.8 SEC (12.0-14.7)
[2018-04-03 22:33] LABS: PTT 48.1 SEC (22.9-36.1)
[2018-04-03 22:44] LABS: ALT (SGPT) 21 U/L (8-55); AST (SGOT) 22 U/L (5-34); Albumin 3.6 g/dL (3.4-4.8); Alkaline Phosphatase 79 U/L (40-150); Anion Gap 14 mmol/L (10-20); BUN (Urea Nitrogen) 30 mg/dL (8.4-25.7); Bilirubin, Total 0.3 mg/dL (0.2-1.2); Calc. Creatinine Clearance 0 mL/min (70-130); Calcium 9.3 mg/dL (7.8-10.44); Carbon Dioxide 24 mmol/L (23-31); Chloride 101 mmol/L (98-107); Estimated GFR-MDRD 49; Globulin 4.5 g/dL (2.4-3.5); Glucose 280 mg/dL (83-110); Potassium 5.4 mmol/L (3.5-5.1); Protein, Total 8.1 g/dL (5.8-8.1); Sodium 134 mmol/L (136-145)
[2018-04-03 22:49] LABS: CKMB 2.2 ng/mL (0-6.6); Troponin I Less than 0.010 ng/mL (< 0.028)
--- NOTE | 2018-04-03 22:56 | RAD ---
THREE VIEWS OF THE RIGHT FOOT: 04/03/18 INDICATION: Right digit infection with history of right foot amputation. COMPARISON: None. FINDINGS: There is soft tissue gas overlying the partial ray amputation site of the right fifth digit. This was reportedly performed on 03/24/18. There is some osteolysis involving the distal aspect of the fifth me tatarsal head suspicious for residual osteomyelitis. No additional acute osseous abnormality is evide nt. IMPRESSION: 1. Soft tissue gas and swelling overlying the fifth digit metatarsal suspicious for residual sof t tissue infection. 2. Osteolysis of the right fifth digit metatarsal head consistent with osteomyelitis. POS: QUOC
[2018-04-03] MEDS ORDERED: Piperacillin/Tazobactam 4.5 GM VIAL ONE ×2 (23:12→23:14)
[2018-04-03] MEDS ORDERED: HYDROcodone/Acetaminophen 5/325 mg Tablet ONE (23:16)
[2018-04-04] MEDS ORDERED: Acetaminophen 325 MG TAB PO PRN ×2 (01:36→11:24)
[2018-04-04] MEDS ORDERED: Ondansetron HCl/PF 4 MG/2 ML Vial IVP PRN (03:54)
[2018-04-04] MEDS ORDERED: Ondansetron ODT 4 MG TAB SL PRN (03:54)
[2018-04-04] MEDS ORDERED: Dextrose 5% in Water 1,000 ML IV PRN (10:44)
[2018-04-04] MEDS ORDERED: Dextrose 50% Abboject 50 ML SYRINGE SLOW IVP PRN (10:44)
[2018-04-04] MEDS ORDERED: Insulin Regular 300 UNITS/3 ML VIAL SC PRN (10:44)
[2018-04-04 11:03] LABS: #Eosinphils 0.3 thou/uL (0.0-0.7); #Monocytes 0.7 thou/uL (0.11-0.59); #Neutrophils 5.9 thou/uL (1.40-6.50); %Basophils 0.5 % (0.0-1.0); %Eosinophils 3.7 % (0.0-10.0); %Lymphocytes 12.1 % (21.0-51.0); %Monocytes 9.1 % (0.0-10.0); %Neutrophils 74.7 % (42.0-75.0); Hemoglobin 10.7 g/dL (14.0-18.0); Mean Corpuscular HGB CONC 33.2 g/dL (32.0-36.0); Mean Corpuscular Hemoglobin 26.7 pg (27.0-31.0); Mean Corpuscular Volume 80.6 fl (80.0-94.0); Mean Platelet Volume 9.7 fL (7.4-10.4); Platelet Count 198 thou/uL (130-400); RBC Distribution Width 17.1 % (11.5-14.5); White Blood Cell (WBC) Count 7.9 thou/uL (4.8-10.8)
[2018-04-04] MEDS ORDERED: Morphine 4 MG/ML VIAL SLOW IVP PRN ×2 (11:24→12:40)
[2018-04-04] MEDS ORDERED: hydrALAZINE 20 MG/ML VIAL SLOW IVP PRN ×2 (11:24→17:41)
[2018-04-04 11:25] LABS: Anion Gap 14 mmol/L (10-20); BUN (Urea Nitrogen) 18 mg/dL (8.4-25.7); CRP (Inflammatory) 11.16 mg/dL (= or < 0.5); Calc. Creatinine Clearance 76 mL/min (70-130); Carbon Dioxide 17 mmol/L (23-31); Chloride 110 mmol/L (98-107); Estimated GFR-MDRD 72; Glucose 125 mg/dL (83-110); Potassium 4.8 mmol/L (3.5-5.1); Sodium 136 mmol/L (136-145)
[2018-04-04] MEDS: Sodium Chloride 0.9% 1,000 ML IV SCH ×3 (11:43→18:24)
[2018-04-04] MEDS: HYDROcodone/Acetaminophen 5/325 mg Tablet PO PRN (11:48)
[2018-04-04] MEDS ORDERED: Vancomycin HCl 1 GM in Premix Bag 1 BAG IVPB SCH (12:45)
[2018-04-04] MEDS ORDERED: Gabapentin 300 MG CAP PO SCH (12:45)
[2018-04-04] MEDS ORDERED: Clopidogrel Bisulfate 75 MG TAB PO SCH (13:00)
[2018-04-04] MEDS ORDERED: Meropenem 1 GM in Sodium Chloride 0.9% 100 ML IVPB SCH ×2 (13:00→22:00)
[2018-04-04] MEDS ORDERED: Aspirin 81 mg Enteric Coated Tablet PO SCH (13:00)
[2018-04-04] MEDS: Morphine 4 MG/ML VIAL SLOW IVP PRN ×2 (13:07→19:18)
--- NOTE | 2018-04-04 13:48 | CON ---
DATE OF CONSULTATION: 04/04/2018 REASON FOR CONSULTATION: Peripheral vascular disease, recent right fifth toe amputation with now evidence of infection and necrosis of the amputation site. HISTORY OF PRESENT ILLNESS: A 73-year-old patient, whom I had seen in the recent past when he presented with a history of chronic smoking, coronary artery disease with bypass surgery, and peripheral vascular disease with revascularization of lower extremities as well as a history of lung cancer with resection and chemotherapy, in remission thus far, who had an amputation at the transmetatarsal level of the left great toe. He also had a history of Clostridium difficile. For discharge planning, he was switched to oral antimicrobial therapy geared towards the organisms isolated, which were mostly anaerobes as well as Enterococcus faecalis and Pseudomonas. Unfortunately, the patient developed gangrene of the left foot and required a left below-knee- amputation in 10/2017. Subsequently, he developed in February this year evidence of ischemia in the right lower extremity. He underwent a right common femoral to posterior tibial artery bypass graft with [place]-Natan and anastomosed a saphenous vein harvested from the distal right lower extremity. He had amputation of the fifth toe and now he comes back with worsening pain in the right foot amputation site and plantar aspect, is in quite a bit of distress from the pain associated with the right foot process. REVIEW OF SYSTEMS: He denies any visual symptoms, sore throat, odynophagia, dysphagia. No dyspnea, no chest pain, no abdominal pain, no constipation. He is voiding without any difficulty. PAST MEDICAL HISTORY: Coronary artery disease, peripheral vascular disease with complications, left lower extremity revascularization, and then BKA amputation, lung cancer after chemo and partial resection with port placement, and a recent revascularization procedure and amputation right fifth toe. ALLERGIES: ATROPINE, BACTRIM, AND NORCO. MEDICATION LIST: Tylenol, Benton, Ecotrin, Lipitor, Plavix, gabapentin, glucagon , Apresoline, insulin, meropenem, and vancomycin. PHYSICAL EXAMINATION: VITAL SIGNS: Essentially normal. O2 sats are down to 94%. He appears in distress from pain. SKIN: Shows the previous BKA site left side, which has healed. The right amputation site with areas of necrosis, desiccation of the base of the amputation wound with an open wound and yellow dried up slough tissue at the base, and there is in the surrounding a rim of erythema measuring about 2 cm. There is marked tenderness on palpation of the area. The patient has a peripheral IV access. No Guan catheter. No lymphadenopathy. HEENT: Ocular movements are conjugate. Sclerae white. Nasal passages patent. Oral cavity with numerous teeth in place with quite a bit of decay and gum disease. NECK: Supple. No jugular venous distention or carotid bruits. LUNGS: With symmetric clear breath sounds. HEART: S1 and S2, regular rate. No murmurs. ABDOMEN: Soft, not distended or tender. No ascites. No bladder distention. : No genital abnormalities. Faintly palpable popliteal pulses. The cap refill in the right foot is in the medial aspect, is less than 3 seconds, but in the lateral aspect, it is a bit delayed. I could not feel any dorsalis pedis or posterior tibialis. The incisions on the right leg and right thigh are dried up with no dehiscence or drainage. NEUROLOGIC: He is awake. He is distressed about this new development. He is able to move extremities with limitations imposed by the right foot inflammatory process. LABORATORY DATA: White cell count 9.9 and 7.9, hemoglobin 11, platelets 218. INR 1.1. Sodium 136, creatinine 1.02, which is down from admission. Liver profile normal. Albumin 3.6. CRP 11.16. X-ray showed the gas around the amputation site at the open wound right fifth metatarsal area. Two sets of blood cultures are pending at this time. There is a C. difficile from September , which showed positive antigen and negative toxin. ASSESSMENT: Coronary artery disease and peripheral vascular disease with previous nbuol-dnro-xnyslovgpp left side after failure of transmetatarsal amputation management. Now with revascularization of right lower extremity with areas of necrosis in the right lateral forefoot at the amputation site with worsening pain. DISCUSSION: Patient has not been able to tolerate hyperbaric chamber in the recent past. He is on proper broad-spectrum coverage. Unfortunately, it looks like he is going to end up with a BKA amputation right side as well. Conservative management, I guess, could be attempted again with another trial of hyperbaric chamber and broad-spectrum coverage, but I am afraid that it is not going to be successful. Cutaneous oxymetry could be assessed to verify the viability of R hindfoot areas MTDD
[2018-04-04] MEDS: Vancomycin HCl 1.25 GM in Sodium Chloride 0.9% 250 ML 250 ML IVPB SCH (14:22)
[2018-04-04] MEDS: HYDROcodone/Acetaminophen 10/325 mg Tablet PO PRN ×2 (16:20→20:46)
[2018-04-04] MEDS ORDERED: Senokot 8.6 MG TAB PO PRN (17:39)
[2018-04-04] MEDS ORDERED: Calcium Carbonate 500 MG ChewTAB PO PRN (17:39)
--- NOTE | 2018-04-04 18:20 | HP ---
DATE OF ADMISSION: 04/04/2018 PRIMARY CARE PHYSICIAN: Daniel Tineo M.D. PRIMARY CARDIOVASCULAR: Yury Smalls M.D. CHIEF COMPLAINT: Right foot pain. HISTORY OF PRESENT ILLNESS: The patient is a 73-year-old male with coronary artery disease, status p ost CABG; peripheral vascular disease, status post recent surgical intervention; presented to the [facility] room with above complaints. The patient was discharged from this facility on 03/24/2018 after right fifth toe ray amputation and right femoral to posterior tibial bypass. He was placed on Bactrim. Over the last few days, the pat ient noticed discoloration over the surgical site along with worsening pain. There was also some fou l-smelling odor along with minimal discharge. The pain was 8/10 without any aggravating or relieving factor. He denies any fever, chills, or injuries. PAST MEDICAL HISTORY: 1. Coronary artery disease, status post coronary artery bypass grafting. 2. Hypertension. 3. Diabetes mellitus type 2. 4. Peripheral vascular disease. 5. Hyperlipidemia. 6. Hypertension. 7. History of left upper lobe squamous cell cancer, status post surgery. PAST SURGICAL HISTORY: 1. Coronary artery bypass grafting. 2. Neck surgery. 3. Laparoscopic cholecystectomy. 4. Left upper lobectomy. 5. Right femoral popliteal bypass. 6. Left great toe amputation. 7. Left BKA in 2017. 8. Transmetatarsal amputation of the left foot in 2017. ALLERGIES: The patient denies any drug allergies. HOME MEDICATIONS: The patient is currently on aspirin, Plavix, gabapentin, Farxiga, glimepiride, ins ulin degludec, metformin, multivitamin, and Zocor. SOCIAL HISTORY: The patient currently lives at home with family. No current use of smoking, alcohol or drug use. He is a FULL [employer], makes his own decisions with the help of family. FAMILY HISTORY: Negative for premature coronary artery disease. Diabetes and hypertension runs in h is family. REVIEW OF SYSTEMS: The following complete review of systems was negative, unless otherwise mentioned in the HPI or below: Constitutional: Weight loss or gain, ability to conduct usual activities. Skin: Rash, itching. Eyes: Double vision, pain. ENT/Mouth: Nose bleeding, neck stiffness, pain, tenderness. Cardiovascular: Palpitations, dyspnea on exertion, orthopnea. Respiratory: Shortness of breath, wheezing, cough, hemoptysis, fever or night sweats. Gastrointestinal: Poor appetite, abdominal pain, heartburn, nausea, vomiting, constipation, or diarr hea. Genitourinary: Urgency, frequency, dysuria, nocturia. Musculoskeletal: Pain, swelling. Neurologic/Psychiatric: Anxiety, depression. Allergy/Immunologic: Skin rash, bleeding tendency. PHYSICAL EXAMINATION: VITAL SIGNS: In the emergency room showed temperature 98.4, respirations 18, pulse rate of 90, blood pressure of 131/84 with O2 saturation 96% on room air. GENERAL: A 73-year-old male in mild distress due to right foot discomfort. HEENT: Head: Atraumatic, normocephalic. Sclerae are anicteric. Moist mucous membrane, no oral les ion. NECK: Supple, no JVD, no carotid bruit. LUNGS: Clear to auscultation bilaterally. No wheezing, rales, or rhonchi. HEART: S1, S2 present. Regular rate and rhythm. No heaves or pulsation. Healed midline scar from previous CABG. ABDOMEN: Soft, nontender, bowel sounds present. EXTREMITIES: No edema or calf tenderness. Dressing noted over the right foot. The incisions from r ecent right lower extremity appears clean. NEUROLOGIC: Grossly nonfocal, moves all four extremities. PSYCHIATRIC: Alert, awake, oriented x3. SKIN: Warm and dry. LABORATORY FINDINGS: CBC showed WBC 9.9 with hemoglobin 11.1, hematocrit 34 with platelet count of 2 18. INR is 1.1. Chemistries showed sodium 134, potassium 5.4 with chloride 101, bicarb 24, BUN 30, creatinine 1.41, glucose 280. CRP was 11.1. Blood cultures negative. X-ray of the right foot by my review showed some soft tissue swelling along with questionable gas. IMPRESSION AND PLAN: 1. Right fifth toe osteomyelitis with recent surgical intervention. The patient has significant rianna n along with discoloration over the surgical site. We will continue empiric antibiotics. Blood cult ures are negative so far. We will consult Infectious Disease and Cardiovascular. 2. Diabetes mellitus type 2. We will start him on sliding scale with long-acting insulin. Accu-Nayely ks before meals and at bedtime. 3. Hypertension. We will resume all of his home medications. 4. Coronary artery disease/peripheral vascular disease. We will resume aspirin and Plavix. 5. History of lung cancer, status post lobectomy. 6. History of pulmonary embolism in the past. 7. Dyslipidemia. We will continue statins. 8. Acute kidney injury on chronic kidney disease stage 2. We will continue IV hydration. We will r esume glimepiride once renal function improves. 9. Hyperkalemia, probably secondary to acute kidney injury. We will recheck labs later today. 10. Hyponatremia, probably secondary to hyperglycemia. 11. Chronic anemia. Plan of care was discussed with the patient in detail. He stated understanding.
[2018-04-04] MEDS: Atorvastatin Calcium 20 MG TAB PO SCH (20:44)
[2018-04-04] MEDS: Glimepiride 2 MG TAB PO SCH (20:45)
[2018-04-04] MEDS: Famotidine 20 MG TAB PO SCH (20:45)
[2018-04-04] MEDS: Gabapentin 300 MG CAP PO SCH (20:45)
[2018-04-04] MEDS: Docusate 100 MG CAP PO SCH (20:45)
[2018-04-04] MEDS: MEROPENEM 1 GM/50 ML 1 GM in Premix Bag 1 BAG IVPB SCH (21:42)
[2018-04-05] MEDS: Vancomycin HCl 1.25 GM in Sodium Chloride 0.9% 250 ML 250 ML IVPB SCH ×2 (00:57→12:56)
[2018-04-05] MEDS: Morphine 4 MG/ML VIAL SLOW IVP PRN ×5 (00:57→19:43)
[2018-04-05] MEDS: Sodium Chloride 0.9% 1,000 ML IV SCH ×3 (00:57→21:20)
[2018-04-05 04:50] LABS: #Eosinphils 0.4 thou/uL (0.0-0.7); #Monocytes 0.7 thou/uL (0.11-0.59); #Neutrophils 3.9 thou/uL (1.40-6.50); %Basophils 0.6 % (0.0-1.0); %Neutrophils 64.3 % (42.0-75.0); Hemoglobin 10.1 g/dL (14.0-18.0); Mean Corpuscular HGB CONC 32.3 g/dL (32.0-36.0); Mean Corpuscular Hemoglobin 26.4 pg (27.0-31.0); Mean Corpuscular Volume 81.7 fl (80.0-94.0); Platelet Count 202 thou/uL (130-400); RBC Distribution Width 17.1 % (11.5-14.5); Red Blood Cell (RBC) Count 3.83 mill/uL (4.70-6.10)
[2018-04-05 05:01] LABS: Anion Gap 12 mmol/L (10-20); BUN (Urea Nitrogen) 16 mg/dL (8.4-25.7); Calc. Creatinine Clearance 82 mL/min (70-130); Calcium 8.8 mg/dL (7.8-10.44); Carbon Dioxide 22 mmol/L (23-31); Chloride 111 mmol/L (98-107); Estimated GFR-MDRD 79; Glucose 145 mg/dL (83-110); Magnesium 1.8 mg/dL (1.6-2.6); Potassium 4.8 mmol/L (3.5-5.1); Sodium 140 mmol/L (136-145)
[2018-04-05] MEDS: MEROPENEM 1 GM/50 ML 1 GM in Premix Bag 1 BAG IVPB SCH ×3 (05:49→21:56)
[2018-04-05] MEDS: Famotidine 20 MG TAB PO SCH ×2 (08:46→20:31)
[2018-04-05] MEDS: Docusate 100 MG CAP PO SCH ×2 (08:46→20:31)
[2018-04-05] MEDS: Aspirin 81 mg Enteric Coated Tablet PO SCH (08:46)
[2018-04-05] MEDS: Gabapentin 300 MG CAP PO SCH ×2 (08:46→20:31)
[2018-04-05] MEDS: Clopidogrel Bisulfate 75 MG TAB PO SCH (08:47)
[2018-04-05] MEDS: HYDROcodone/Acetaminophen 10/325 mg Tablet PO PRN ×3 (08:47→17:45)
[2018-04-05] MEDS: Insulin Glargine 20 UNITS in Pre-Filled Syringe 1 EACH SC SCH (08:47)
[2018-04-05] MEDS ORDERED: Insulin Detemir 100 UNITS/ML 20 UNITS in Pre-Filled Syringe 1 EACH SC SCH (09:00)
[2018-04-05] MEDS: Insulin Regular 300 UNITS/3 ML VIAL SC PRN ×2 (12:54→17:41)
[2018-04-05] MEDS: Atorvastatin Calcium 20 MG TAB PO SCH (20:31)
[2018-04-05] MEDS: Glimepiride 2 MG TAB PO SCH (20:31)
[2018-04-05] MEDS: HYDROcodone/Acetaminophen 5/325 mg Tablet PO PRN (20:34)
--- NOTE | 2018-04-05 23:23 | PDOC.PN ---
- Subjective Encounter Start Date: 04/05/18 Encounter Start Time: 15:00 Patient seen and examined Osteomyelitis with recent surgery. No new complaints. No overnight events - Objective Resuscitation Status: Resuscitation Status FULL:Full Resuscitation MAR Reviewed: Yes Vital Signs & Weight: Vital Signs (12 hours) Temp Pulse Resp BP Pulse Ox 04/05/18 19:28 98.3 F 93 18 124/54 L 94 L Weight Admit Weight 183 lb 3.2 oz Weight 183 lb 3.2 oz I&O: 04/04/18 04/05/18 04/06/18 06:59 06:59 06:59 Output Total 400 500 Balance -400 -500 Result Diagrams: 04/05/18 03:40 04/05/18 03:40 Additional Labs: Accuchecks 04/05/18 04/05/18 04/05/18 19:33 16:56 12:15 POC Glucose 157 H 219 H 231 H 04/05/18 05:45 POC Glucose 149 H Phys Exam - Physical Examination Constitutional: NAD Respiratory: no wheezing, no rhonchi Cardiovascular: RRR, no rub Gastrointestinal: soft, non-tender, positive bowel sounds Musculoskeletal: no edema Rt foot dressing + Neurological: moves all 4 limbs Dx/Plan (1) Osteomyelitis of toe of right foot Code(s): M86.9 - OSTEOMYELITIS, UNSPECIFIED Status: Acute (2) HTN (hypertension) Code(s): I10 - ESSENTIAL (PRIMARY) HYPERTENSION Status: Chronic (3) TORRES (acute kidney injury) Code(s): N17.9 - ACUTE KIDNEY FAILURE, UNSPECIFIED Status: Acute Comment: CKD2 (4) PVD (peripheral vascular disease) Code(s): I73.9 - PERIPHERAL VASCULAR DISEASE, UNSPECIFIED Status: Chronic (5) CAD (coronary artery disease) Code(s): I25.10 - ATHSCL HEART DISEASE OF [place] CORONARY ARTERY W/O ANG PCTRS Status: Chronic - Plan Cont Atbx -: NPO past MN -: Cont current meds as below Review of Systems - Review of Systems Respiratory: negative: Cough, Dry, Shortness of Breath, Hemoptysis, SOB with Excertion, Pleuritic Pain, Sputum, Wheezing Cardiovascular: negative: chest pain, palpitations, orthopnea, paroxysmal nocturnal dyspnea, edema, light headedness, other - Medications/Allergies Allergies/Adverse Reactions: Allergies Allergy/AdvReac Type Severity Reaction Status Date / Time No Known Allergies Allergy Verified 03/18/18 12:25 Medications: Current Medications Acetaminophen (Tylenol) 650 mg PO Q4H PRN PRN Reason: Headache/Fever or Mild Pain Last Admin: 04/04/18 21:49 Dose: 650 mg Hydrocodone Bitart/Acetaminophen ([place] 5/325) 1 tab PO Q4H PRN PRN Reason: Moderate Pain (4-6) Last Admin: 04/05/18 20:34 Dose: 1 tab Hydrocodone Bitart/Acetaminophen ([place] 10/325) 1 tab PO Q4H PRN PRN Reason: Severe Pain (7-10) Last Admin: 04/05/18 17:45 Dose: 1 tab Aspirin (Ecotrin) 81 mg PO QAM [facility] Last Admin: 04/05/18 08:46 Dose: 81 mg Atorvastatin Calcium (Lipitor) 20 mg PO HS [facility] Last Admin: 04/05/18 20:31 Dose: 20 mg Calcium Carbonate (Tums) 1,000 mg PO Q4H PRN PRN Reason: Heartburn or Indigestion Clopidogrel Bisulfate (Plavix) 75 mg PO DAILY [facility] Last Admin: 04/05/18 08:47 Dose: 75 mg Dextrose/Water (Dextrose 50%) 25 gm SLOW IVP PRN PRN PRN Reason: Hypoglycemia Docusate Sodium (Colace) 100 mg PO BID [facility] Last Admin: 04/05/18 20:31 Dose: 100 mg Famotidine (Pepcid) 20 mg PO BID [facility] Last Admin: 04/05/18 20:31 Dose: 20 mg Gabapentin (Neurontin) 600 mg PO BID [facility] Last Admin: 04/05/18 20:31 Dose: 600 mg Glimepiride (Amaryl) 2 mg PO QPM [facility] Last Admin: 04/05/18 20:31 Dose: 2 mg Glucagon (Glucagon) 1 mg IM PRN PRN PRN Reason: Hypoglycemia Hydralazine HCl (Apresoline) 10 mg SLOW IVP Q4H PRN PRN Reason: SBP Greater Than 180 Hydralazine HCl (Apresoline) 10 mg SLOW IVP Q4H PRN PRN Reason: SBP Greater Than 180 Dextrose/Water (D5w) 1,000 mls @ 0 mls/hr IV .Q0M PRN; As Directed PRN Reason: Hypoglycemia Vancomycin HCl 1.25 gm/ Sodium (Chloride) 250 mls @ 166.667 mls/hr IVPB 0100, 1300 [facility] Last Admin: 04/05/18 12:56 Dose: 250 mls Meropenem 1 gm/ Device 50 mls @ 100 mls/hr IVPB Q8HR [facility] Last Admin: 04/05/18 21:56 Dose: 50 mls Sodium Chloride (Normal Saline 0.9%) 1,000 mls @ 75 mls/hr IV .[id number] [facility] Last Admin: 04/05/18 15:42 Dose: 1,000 mls Insulin Glargine 20 units/ (Miscellaneous Medication) 0.2 mls @ 0 mls/hr SC QAM [facility] Last Admin: 04/05/18 08:47 Dose: 0.2 mls Insulin Human Regular (Humulin R) 0 units SC .MILD SLIDING SCALE PRN PRN Reason: Mild Correctional Scale Last Admin: 04/05/18 17:41 Dose: 3 unit Insulin Human Regular (Humulin R) 0 units SC .BEDTIME SLIDING SC PRN PRN Reason: Bedtime Correctional Scale Miscellaneous Medication (Pharmacy To Dose) 1 each IVPB ASDIR PRN PRN Reason: Pharmacy to Dose VANCOMYCIN Morphine Sulfate (Morphine) 4 mg SLOW IVP Q4H PRN PRN Reason: Pain 6-10 Stop: 04/06/18 11:25 Last Admin: 04/05/18 19:43 Dose: 4 mg Morphine Sulfate (Morphine) 2 mg SLOW IVP Q4H PRN PRN Reason: Pain 1-5 Stop: 04/06/18 12:41 Senna (Senokot) 2 tab PO HSPRN PRN PRN Reason: Constipation
[2018-04-06] MEDS: Vancomycin HCl 1.25 GM in Sodium Chloride 0.9% 250 ML 250 ML IVPB SCH ×2 (01:27→12:01)
[2018-04-06] MEDS: MEROPENEM 1 GM/50 ML 1 GM in Premix Bag 1 BAG IVPB SCH ×3 (05:55→21:54)
[2018-04-06] MEDS: Morphine 4 MG/ML VIAL SLOW IVP PRN ×4 (07:39→23:09)
[2018-04-06] MEDS: Gabapentin 300 MG CAP PO SCH ×2 (07:51→22:19)
[2018-04-06] MEDS: Docusate 100 MG CAP PO SCH ×2 (07:51→22:19)
[2018-04-06] MEDS: Famotidine 20 MG TAB PO SCH ×2 (07:51→22:19)
[2018-04-06] MEDS: Sodium Chloride 0.9% 1,000 ML IV SCH ×2 (07:51→23:13)
[2018-04-06] MEDS: Clopidogrel Bisulfate 75 MG TAB PO SCH (07:53)
[2018-04-06] MEDS: Insulin Glargine 20 UNITS in Pre-Filled Syringe 1 EACH SC SCH (07:53)
[2018-04-06] MEDS: Aspirin 81 mg Enteric Coated Tablet PO SCH (07:53)
[2018-04-06] MEDS ORDERED: Lidocaine 1% PF 5 ML VIAL ONE (11:31)
[2018-04-06] MEDS ORDERED: Dexamethasone 20 MG/5 ML VIAL ONE (11:31)
[2018-04-06] MEDS ORDERED: PHENYLEPHRINE-NS 100 MCG/ML 10 ML SYRINGE ONE (11:31)
[2018-04-06] MEDS ORDERED: Ondansetron HCl/PF 4 MG/2 ML Vial ONE ×2 (11:31→18:19)
[2018-04-06] MEDS ORDERED: PROPOFOL 200 MG/20 ML VIAL ONE (11:31)
[2018-04-06] MEDS: HYDROcodone/Acetaminophen 10/325 mg Tablet PO PRN ×2 (11:57→22:38)
[2018-04-06] MEDS ORDERED: Fentanyl 250 MCG/5 ML VIAL ONE (18:19)
[2018-04-06] MEDS ORDERED: Promethazine HCl 25 MG/ML VIAL SLOW IVP PRN (20:01)
[2018-04-06] MEDS ORDERED: Ondansetron HCl/PF 4 MG/2 ML Vial IVP PRN (20:01)
[2018-04-06] MEDS ORDERED: Promethazine HCl 25 MG/ML VIAL IM PRN (20:01)
[2018-04-06] MEDS ORDERED: Fentanyl 100 MCG/2 ML VIAL ONE ×2 (20:11→20:46)
[2018-04-06] MEDS: Atorvastatin Calcium 20 MG TAB PO SCH (22:19)
[2018-04-06] MEDS: Glimepiride 2 MG TAB PO SCH (22:20)
--- NOTE | 2018-04-06 22:48 | PDOC.PN ---
- Subjective Encounter Start Date: 04/06/18 Encounter Start Time: 10:30 Patient seen and examined for RLE ostemyelitis. No new complaints. No overnight events - Objective Resuscitation Status: Resuscitation Status FULL:Full Resuscitation MAR Reviewed: Yes Vital Signs & Weight: Vital Signs (12 hours) Temp Pulse Resp BP Pulse Ox 04/06/18 21:25 98.5 F 89 18 161/51 H 94 L Weight Admit Weight 183 lb 3.2 oz Weight 183 lb 3.2 oz I&O: 04/05/18 04/06/18 04/07/18 06:59 06:59 06:59 Output Total 500 Balance -500 Result Diagrams: 04/05/18 03:40 04/05/18 03:40 Additional Labs: Accuchecks 04/06/18 04/06/18 04/06/18 16:31 11:17 04:52 POC Glucose 130 H 160 H 134 H Phys Exam - Physical Examination Constitutional: NAD Respiratory: no wheezing, no rhonchi Cardiovascular: RRR, no rub Gastrointestinal: soft, non-tender, positive bowel sounds Musculoskeletal: no edema Rt leg dressing + Neurological: moves all 4 limbs Dx/Plan (1) Osteomyelitis of toe of right foot Code(s): M86.9 - OSTEOMYELITIS, UNSPECIFIED Status: Acute Comment: with gangrene (2) TORRES (acute kidney injury) Code(s): N17.9 - ACUTE KIDNEY FAILURE, UNSPECIFIED Status: Acute Comment: CKD2 (3) HTN (hypertension) Code(s): I10 - ESSENTIAL (PRIMARY) HYPERTENSION Status: Chronic (4) PVD (peripheral vascular disease) Code(s): I73.9 - PERIPHERAL VASCULAR DISEASE, UNSPECIFIED Status: Chronic (5) CAD (coronary artery disease) Code(s): I25.10 - ATHSCL HEART DISEASE OF [place] CORONARY ARTERY W/O ANG PCTRS Status: Chronic - Plan plan discussed w/ family, DVT proph w/SCDs Cont Atbx -: Rt BKA today -: Cont current meds as below -: Cont Levemir with sliding scale -: AM labs Review of Systems - Review of Systems Cardiovascular: negative: chest pain, palpitations, orthopnea, paroxysmal nocturnal dyspnea, edema, light headedness, other Gastrointestinal: negative: Nausea, Vomiting, Abdominal Pain, Diarrhea, Constipation, Melena, Hematochezia, Other - Medications/Allergies Allergies/Adverse Reactions: Allergies Allergy/AdvReac Type Severity Reaction Status Date / Time No Known Allergies Allergy Verified 03/18/18 12:25 Medications: Current Medications Acetaminophen (Tylenol) 650 mg PO Q4H PRN PRN Reason: Headache/Fever or Mild Pain Last Admin: 04/04/18 21:49 Dose: 650 mg Hydrocodone Bitart/Acetaminophen ([place] 5/325) 1 tab PO Q4H PRN PRN Reason: Moderate Pain (4-6) Last Admin: 04/05/18 20:34 Dose: 1 tab Hydrocodone Bitart/Acetaminophen ([place] 10/325) 1 tab PO Q4H PRN PRN Reason: Severe Pain (7-10) Last Admin: 04/06/18 22:38 Dose: 1 tab Aspirin (Ecotrin) 81 mg PO QAM [facility] Last Admin: 04/06/18 07:53 Dose: Not Given Atorvastatin Calcium (Lipitor) 20 mg PO HS [facility] Last Admin: 04/06/18 22:19 Dose: Not Given Calcium Carbonate (Tums) 1,000 mg PO Q4H PRN PRN Reason: Heartburn or Indigestion Clopidogrel Bisulfate (Plavix) 75 mg PO DAILY [facility] Last Admin: 04/06/18 07:53 Dose: Not Given Dextrose/Water (Dextrose 50%) 25 gm SLOW IVP PRN PRN PRN Reason: Hypoglycemia Docusate Sodium (Colace) 100 mg PO BID [facility] Last Admin: 04/06/18 22:19 Dose: Not Given Famotidine (Pepcid) 20 mg PO BID [facility] Last Admin: 04/06/18 22:19 Dose: Not Given Fentanyl (Pacu-Sublimaze) 50 mcg SLOW IVP Q10MIN PRN PRN Reason: Moderate to Severe Pain (6-10) Stop: 04/06/18 23:01 Gabapentin (Neurontin) 600 mg PO BID [facility] Last Admin: 04/06/18 22:19 Dose: Not Given Glimepiride (Amaryl) 2 mg PO QPM [facility] Last Admin: 04/06/18 22:20 Dose: Not Given Glucagon (Glucagon) 1 mg IM PRN PRN PRN Reason: Hypoglycemia Hydralazine HCl (Apresoline) 10 mg SLOW IVP Q4H PRN PRN Reason: SBP Greater Than 180 Hydralazine HCl (Apresoline) 10 mg SLOW IVP Q4H PRN PRN Reason: SBP Greater Than 180 Dextrose/Water (D5w) 1,000 mls @ 0 mls/hr IV .Q0M PRN; As Directed PRN Reason: Hypoglycemia Vancomycin HCl 1.25 gm/ Sodium (Chloride) 250 mls @ 166.667 mls/hr IVPB 0100, 1300 [facility] Last Admin: 04/06/18 12:01 Dose: 250 mls Meropenem 1 gm/ Device 50 mls @ 100 mls/hr IVPB Q8HR [facility] Last Admin: 04/06/18 21:54 Dose: 50 mls Sodium Chloride (Normal Saline 0.9%) 1,000 mls @ 75 mls/hr IV .[id number] [facility] Last Admin: 04/06/18 07:51 Dose: 1,000 mls Insulin Glargine 20 units/ (Miscellaneous Medication) 0.2 mls @ 0 mls/hr SC QAM [facility] Last Admin: 04/06/18 07:53 Dose: Not Given Insulin Human Regular (Humulin R) 0 units SC .MILD SLIDING SCALE PRN PRN Reason: Mild Correctional Scale Last Admin: 04/05/18 17:41 Dose: 3 unit Insulin Human Regular (Humulin R) 0 units SC .BEDTIME SLIDING SC PRN PRN Reason: Bedtime Correctional Scale Miscellaneous Medication (Pharmacy To Dose) 1 each IVPB ASDIR PRN PRN Reason: Pharmacy to Dose VANCOMYCIN Morphine Sulfate (Morphine) 4 mg SLOW IVP Q4H PRN PRN Reason: Pain 2ND LINE Stop: 04/11/18 11:39 Last Admin: 04/06/18 21:41 Dose: 4 mg Morphine Sulfate (Morphine) 2 mg SLOW IVP Q4H PRN PRN Reason: Pain 1ST LINE Stop: 04/11/18 11:39 Ondansetron HCl (Pacu-Zofran) 4 mg IVP ONE PRN PRN Reason: Nausea/Vomiting Stop: 04/06/18 23:01 Promethazine HCl (Pacu-Phenergan) 6.25 mg SLOW IVP ONE PRN PRN Reason: Nausea/Vomiting Stop: 04/06/18 23:01 Promethazine HCl (Pacu-Phenergan) 6.25 mg IM ONE PRN PRN Reason: Nausea/Vomiting Stop: 04/06/18 23:01 Senna (Senokot) 2 tab PO HSPRN PRN PRN Reason: Constipation
[2018-04-07] MEDS: Morphine 4 MG/ML VIAL SLOW IVP PRN ×4 (01:23→21:13)
[2018-04-07] MEDS: Vancomycin HCl 1.25 GM in Sodium Chloride 0.9% 250 ML 250 ML IVPB SCH ×2 (01:28→12:35)
--- NOTE | 2018-04-07 02:28 | OP ---
DATE OF PROCEDURE: 04/06/2018 PREOPERATIVE DIAGNOSIS: Gangrene of the right foot. POSTOPERATIVE DIAGNOSIS: Gangrene of the right foot. PROCEDURE: Right below-knee amputation. SURGEON: Yury Smalls M.D. ANESTHESIA: General endotracheal. ESTIMATED BLOOD LOSS: 250 mL. SPECIMEN: Right below-knee amputation specimen. DESCRIPTION OF PROCEDURE: After consent was obtained, patient was brought to the operating room and placed in the supine position on the operating room table. Appropriate anesthetic monitor was placed and general endotracheal anesthesia induced. Right leg was prepped and draped in usual sterile [facility] ion. Skin incision was made for below-knee posterior flap type incision. Dissection through the fas fermin was obtained with cautery. The anterior tibialis was divided with electrocautery. Periosteum wa s elevated off the tibia and fibula. The anterior tibial artery was divided between ties. The tibia was divided with Gigli saw. The fibula was divided with rib liza. Tibia peroneal trunk was divid ed between ties. The remainder of the amputation was completed with amputation knife. The posterior musculature was very healthy and bled nicely. Multiple branches were tied. Tibial nerve was stripp ed and tied. After adequate hemostasis had been obtained, wound was copiously irrigated. Fascia was brought anteriorly and secured with multiple interrupted 0 Vicryl suture. A running layer of 2-0 Vi cryl suture was then placed followed by skin clips. Fluff dressing was applied followed with an Hunter wrap. Patient tolerated procedure well, was awakened, extubated, and transferred to the [facility] in stable condition.
[2018-04-07] MEDS: HYDROcodone/Acetaminophen 10/325 mg Tablet PO PRN ×5 (03:58→19:56)
[2018-04-07] MEDS: MEROPENEM 1 GM/50 ML 1 GM in Premix Bag 1 BAG IVPB SCH ×3 (05:53→23:21)
[2018-04-07] MEDS: Insulin Regular 300 UNITS/3 ML VIAL SC PRN ×3 (07:09→16:14)
[2018-04-07] MEDS: Aspirin 81 mg Enteric Coated Tablet PO SCH (09:17)
[2018-04-07] MEDS: Docusate 100 MG CAP PO SCH (09:17)
[2018-04-07] MEDS: Gabapentin 300 MG CAP PO SCH ×2 (09:17→19:55)
[2018-04-07] MEDS: Famotidine 20 MG TAB PO SCH ×2 (09:18→19:55)
[2018-04-07] MEDS: Clopidogrel Bisulfate 75 MG TAB PO SCH (09:18)
[2018-04-07] MEDS: Insulin Glargine 20 UNITS in Pre-Filled Syringe 1 EACH SC SCH (09:18)
[2018-04-07] MEDS: Sodium Chloride 0.9% 1,000 ML IV SCH ×2 (09:22→13:54)
[2018-04-07 09:51] VITALS: BMI 25.7
[2018-04-07 12:20] LABS: #Monocytes 0.8 thou/uL (0.11-0.59); #Neutrophils 3.9 thou/uL (1.40-6.50); %Eosinophils 0.7 % (0.0-10.0); %Lymphocytes 16.9 % (21.0-51.0); %Monocytes 13.7 % (0.0-10.0); %Neutrophils 68.7 % (42.0-75.0); Hemoglobin 10.3 g/dL (14.0-18.0); Mean Corpuscular HGB CONC 30.9 g/dL (32.0-36.0); Mean Corpuscular Hemoglobin 25.7 pg (27.0-31.0); Mean Corpuscular Volume 83.3 fl (80.0-94.0); Mean Platelet Volume 9.6 fL (7.4-10.4); Platelet Count 211 thou/uL (130-400); RBC Distribution Width 16.5 % (11.5-14.5); White Blood Cell (WBC) Count 5.6 thou/uL (4.8-10.8)
[2018-04-07 12:57] LABS: Vancomycin, Trough 18.7 ug/mL
[2018-04-07 12:58] LABS: Anion Gap 15 mmol/L (10-20); BUN (Urea Nitrogen) 19 mg/dL (8.4-25.7); Calc. Creatinine Clearance 85 mL/min (70-130); Calcium 8.6 mg/dL (7.8-10.44); Carbon Dioxide 18 mmol/L (23-31); Chloride 107 mmol/L (98-107); Estimated GFR-MDRD 84; Glucose 264 mg/dL (83-110); Potassium 4.8 mmol/L (3.5-5.1); Sodium 135 mmol/L (136-145)
[2018-04-07] MEDS ORDERED: Polyethylene Glycol 3350 17 GM Packet PO PRN (13:23)
--- NOTE | 2018-04-07 18:15 | PDOC.PN ---
- Subjective Encounter Start Date: 04/07/18 Encounter Start Time: 11:30 Patient seen and examined for Rt foot osteo/gangrene. Pain controlled on current meds. No new complaints. No overnight events - Objective Resuscitation Status: Resuscitation Status FULL:Full Resuscitation MAR Reviewed: Yes Vital Signs & Weight: Vital Signs (12 hours) Temp Pulse Resp BP Pulse Ox 04/07/18 08:00 97.9 F 75 16 04/07/18 07:27 97.9 F 75 16 144/74 H 93 L Weight Admit Weight 183 lb 3.2 oz Weight 179 lb I&O: 04/06/18 04/07/18 04/08/18 06:59 06:59 06:59 Intake Total 675 Output Total 1600 Balance -925 Result Diagrams: 04/07/18 12:11 04/07/18 12:11 Additional Labs: Accuchecks 04/07/18 04/07/18 04/07/18 15:43 11:41 05:05 POC Glucose 251 H 279 H 301 H Phys Exam - Physical Examination Constitutional: NAD Respiratory: no wheezing, no rhonchi Cardiovascular: RRR, no rub Gastrointestinal: soft, positive bowel sounds Musculoskeletal: no edema Dx/Plan (1) Osteomyelitis of toe of right foot Code(s): M86.9 - OSTEOMYELITIS, UNSPECIFIED Status: Acute Comment: with gangrene, s/p Rt BKA (2) TORRES (acute kidney injury) Code(s): N17.9 - ACUTE KIDNEY FAILURE, UNSPECIFIED Status: Acute Comment: CKD2, improving with IVF (3) HTN (hypertension) Code(s): I10 - ESSENTIAL (PRIMARY) HYPERTENSION Status: Chronic (4) PVD (peripheral vascular disease) Code(s): I73.9 - PERIPHERAL VASCULAR DISEASE, UNSPECIFIED Status: Chronic (5) CAD (coronary artery disease) Code(s): I25.10 - ATHSCL HEART DISEASE OF [place] CORONARY ARTERY W/O ANG PCTRS Status: Chronic - Plan continue antibiotics Add Levemir 15 units HS, Cont 20 units QAM with sliding scale -: Cont current meds as below -: Add Miralax -: Cont ASA/ Plavix -: Reduce IVF Review of Systems - Review of Systems Respiratory: negative: Cough, Dry, Shortness of Breath, Hemoptysis, SOB with Excertion, Pleuritic Pain, Sputum, Wheezing Cardiovascular: negative: chest pain, palpitations, orthopnea, paroxysmal nocturnal dyspnea, edema, light headedness, other - Medications/Allergies Allergies/Adverse Reactions: Allergies Allergy/AdvReac Type Severity Reaction Status Date / Time No Known Allergies Allergy Verified 03/18/18 12:25 Medications: Current Medications Acetaminophen (Tylenol) 650 mg PO Q4H PRN PRN Reason: Headache/Fever or Mild Pain Last Admin: 04/04/18 21:49 Dose: 650 mg Hydrocodone Bitart/Acetaminophen ([place] 5/325) 1 tab PO Q4H PRN PRN Reason: Moderate Pain (4-6) Last Admin: 04/05/18 20:34 Dose: 1 tab Hydrocodone Bitart/Acetaminophen ([place] 10/325) 2 tab PO Q4H PRN PRN Reason: Severe Pain (7-10) Last Admin: 04/07/18 15:29 Dose: 2 tab Aspirin (Ecotrin) 81 mg PO QAM [facility] Last Admin: 04/07/18 09:17 Dose: 81 mg Atorvastatin Calcium (Lipitor) 20 mg PO HS [facility] Last Admin: 04/06/18 22:19 Dose: Not Given Calcium Carbonate (Tums) 1,000 mg PO Q4H PRN PRN Reason: Heartburn or Indigestion Clopidogrel Bisulfate (Plavix) 75 mg PO DAILY [facility] Last Admin: 04/07/18 09:18 Dose: 75 mg Dextrose/Water (Dextrose 50%) 25 gm SLOW IVP PRN PRN PRN Reason: Hypoglycemia Famotidine (Pepcid) 20 mg PO BID [facility] Last Admin: 04/07/18 09:18 Dose: 20 mg Gabapentin (Neurontin) 600 mg PO BID [facility] Last Admin: 04/07/18 09:17 Dose: 600 mg Glimepiride (Amaryl) 2 mg PO QPM [facility] Last Admin: 04/06/18 22:20 Dose: Not Given Glucagon (Glucagon) 1 mg IM PRN PRN PRN Reason: Hypoglycemia Hydralazine HCl (Apresoline) 10 mg SLOW IVP Q4H PRN PRN Reason: SBP Greater Than 180 Hydralazine HCl (Apresoline) 10 mg SLOW IVP Q4H PRN PRN Reason: SBP Greater Than 180 Dextrose/Water (D5w) 1,000 mls @ 0 mls/hr IV .Q0M PRN; As Directed PRN Reason: Hypoglycemia Vancomycin HCl 1.25 gm/ Sodium (Chloride) 250 mls @ 166.667 mls/hr IVPB 0100, 1300 [facility] Last Admin: 04/07/18 12:35 Dose: 250 mls Meropenem 1 gm/ Device 50 mls @ 100 mls/hr IVPB Q8HR [facility] Last Admin: 04/07/18 15:13 Dose: 50 mls Insulin Glargine 20 units/ (Miscellaneous Medication) 0.2 mls @ 0 mls/hr SC QAM [facility] Last Admin: 04/07/18 09:18 Dose: 0.2 mls Sodium Chloride (Normal Saline 0.9%) 1,000 mls @ 40 mls/hr IV .Q24H [facility] Last Admin: 04/07/18 13:54 Dose: Not Given Insulin Glargine 15 units/ (Miscellaneous Medication) 0.15 mls @ 0 mls/hr SC [facility] Insulin Human Regular (Humulin R) 0 units SC .MILD SLIDING SCALE PRN PRN Reason: Mild Correctional Scale Last Admin: 04/07/18 16:14 Dose: 4 unit Insulin Human Regular (Humulin R) 0 units SC .BEDTIME SLIDING SC PRN PRN Reason: Bedtime Correctional Scale Miscellaneous Medication (Pharmacy To Dose) 1 each IVPB ASDIR PRN PRN Reason: Pharmacy to Dose VANCOMYCIN Morphine Sulfate (Morphine) 4 mg SLOW IVP Q4H PRN PRN Reason: Pain 2ND LINE Stop: 04/11/18 11:39 Last Admin: 04/07/18 13:57 Dose: 4 mg Morphine Sulfate (Morphine) 2 mg SLOW IVP Q4H PRN PRN Reason: Pain 1ST LINE Stop: 04/11/18 11:39 Last Admin: 04/06/18 23:09 Dose: 2 mg Polyethylene Glycol (Miralax) 17 gm PO DAILY PRN PRN Reason: Constipation Senna (Senokot) 2 tab PO HSPRN PRN PRN Reason: Constipation Senna/Docusate Sodium (Senokot S) 1 tab PO BID [facility]
[2018-04-07] MEDS: Atorvastatin Calcium 20 MG TAB PO SCH (19:55)
[2018-04-07] MEDS: Senokot S 8.6-50 MG TAB PO SCH (19:55)
[2018-04-07] MEDS: Glimepiride 2 MG TAB PO SCH (19:55)
[2018-04-07] MEDS: Insulin Glargine 15 UNITS in Pre-Filled Syringe SC SCH (19:56)
[2018-04-08] MEDS: Vancomycin HCl 1.25 GM in Sodium Chloride 0.9% 250 ML 250 ML IVPB SCH ×2 (01:35→13:05)
[2018-04-08] MEDS: Morphine 4 MG/ML VIAL SLOW IVP PRN ×3 (04:51→20:39)
[2018-04-08] MEDS: MEROPENEM 1 GM/50 ML 1 GM in Premix Bag 1 BAG IVPB SCH ×2 (05:00→15:23)
[2018-04-08] MEDS: Insulin Regular 300 UNITS/3 ML VIAL SC PRN (06:41)
[2018-04-08] MEDS: Famotidine 20 MG TAB PO SCH ×2 (08:27→20:43)
[2018-04-08] MEDS: Gabapentin 300 MG CAP PO SCH ×2 (08:27→20:43)
[2018-04-08] MEDS: Clopidogrel Bisulfate 75 MG TAB PO SCH (08:27)
[2018-04-08] MEDS: Senokot S 8.6-50 MG TAB PO SCH ×2 (08:28→20:43)
[2018-04-08] MEDS: Aspirin 81 mg Enteric Coated Tablet PO SCH (08:28)
[2018-04-08] MEDS: HYDROcodone/Acetaminophen 10/325 mg Tablet PO PRN ×4 (08:29→22:34)
[2018-04-08] MEDS: Insulin Glargine 20 UNITS in Pre-Filled Syringe 1 EACH SC SCH (09:09)
[2018-04-08] MEDS: Sodium Chloride 0.9% 1,000 ML IV SCH (13:03)
--- NOTE | 2018-04-08 18:51 | PDOC.PN ---
- Subjective Encounter Start Date: 04/08/18 Encounter Start Time: 18:49 Patient seen and examined for Osteomyelitis/Gangrene. No new complaints. No overnight events - Objective Resuscitation Status: Resuscitation Status FULL:Full Resuscitation MAR Reviewed: Yes Vital Signs & Weight: Vital Signs (12 hours) Temp Pulse Resp BP Pulse Ox 04/08/18 08:00 98.0 F 82 18 96 04/08/18 07:07 98.0 F 82 18 131/66 96 Weight Admit Weight 183 lb 3.2 oz Weight 179 lb I&O: 04/07/18 04/08/18 04/09/18 06:59 06:59 06:59 Intake Total 675 990 Output Total 1600 1250 Balance -925 -260 Result Diagrams: 04/07/18 12:11 04/07/18 12:11 Additional Labs: Accuchecks 04/08/18 04/08/18 04/08/18 16:23 11:19 05:05 POC Glucose 154 H 159 H 178 H 04/08/18 04/07/18 01:43 19:14 POC Glucose 171 H 170 H Phys Exam - Physical Examination Constitutional: NAD Neurological: moves all 4 limbs Dx/Plan (1) Osteomyelitis of toe of right foot Code(s): M86.9 - OSTEOMYELITIS, UNSPECIFIED Status: Acute Comment: with gangrene, s/p Rt BKA (2) TORRES (acute kidney injury) Code(s): N17.9 - ACUTE KIDNEY FAILURE, UNSPECIFIED Status: Acute Comment: CKD2, resolved (3) HTN (hypertension) Code(s): I10 - ESSENTIAL (PRIMARY) HYPERTENSION Status: Chronic (4) PVD (peripheral vascular disease) Code(s): I73.9 - PERIPHERAL VASCULAR DISEASE, UNSPECIFIED Status: Chronic (5) CAD (coronary artery disease) Code(s): I25.10 - ATHSCL HEART DISEASE OF [place] CORONARY ARTERY W/O ANG PCTRS Status: Chronic - Plan DC Atbx -: DC IVF -: Cont current meds as below Review of Systems - Review of Systems Respiratory: negative: Cough, Dry, Shortness of Breath, Hemoptysis, SOB with Excertion, Pleuritic Pain, Sputum, Wheezing Cardiovascular: negative: chest pain, palpitations, orthopnea, paroxysmal nocturnal dyspnea, edema, light headedness, other - Medications/Allergies Allergies/Adverse Reactions: Allergies Allergy/AdvReac Type Severity Reaction Status Date / Time No Known Allergies Allergy Verified 03/18/18 12:25 Medications: Current Medications Acetaminophen (Tylenol) 650 mg PO Q4H PRN PRN Reason: Headache/Fever or Mild Pain Last Admin: 04/04/18 21:49 Dose: 650 mg Hydrocodone Bitart/Acetaminophen ([place] 5/325) 1 tab PO Q4H PRN PRN Reason: Moderate Pain (4-6) Last Admin: 04/05/18 20:34 Dose: 1 tab Hydrocodone Bitart/Acetaminophen ([place] 10/325) 2 tab PO Q4H PRN PRN Reason: Severe Pain (7-10) Last Admin: 04/08/18 17:43 Dose: 2 tab Aspirin (Ecotrin) 81 mg PO QAM [facility] Last Admin: 04/08/18 08:28 Dose: 81 mg Atorvastatin Calcium (Lipitor) 20 mg PO HS [facility] Last Admin: 04/07/18 19:55 Dose: 20 mg Calcium Carbonate (Tums) 1,000 mg PO Q4H PRN PRN Reason: Heartburn or Indigestion Clopidogrel Bisulfate (Plavix) 75 mg PO DAILY [facility] Last Admin: 04/08/18 08:27 Dose: 75 mg Dextrose/Water (Dextrose 50%) 25 gm SLOW IVP PRN PRN PRN Reason: Hypoglycemia Famotidine (Pepcid) 20 mg PO BID [facility] Last Admin: 04/08/18 08:27 Dose: 20 mg Gabapentin (Neurontin) 600 mg PO BID [facility] Last Admin: 04/08/18 08:27 Dose: 600 mg Glimepiride (Amaryl) 2 mg PO QPM [facility] Last Admin: 04/07/18 19:55 Dose: 2 mg Glucagon (Glucagon) 1 mg IM PRN PRN PRN Reason: Hypoglycemia Hydralazine HCl (Apresoline) 10 mg SLOW IVP Q4H PRN PRN Reason: SBP Greater Than 180 Hydralazine HCl (Apresoline) 10 mg SLOW IVP Q4H PRN PRN Reason: SBP Greater Than 180 Dextrose/Water (D5w) 1,000 mls @ 0 mls/hr IV .Q0M PRN; As Directed PRN Reason: Hypoglycemia Insulin Glargine 20 units/ (Miscellaneous Medication) 0.2 mls @ 0 mls/hr SC QAM [facility] Last Admin: 04/08/18 09:09 Dose: 0.2 mls Insulin Glargine 15 units/ (Miscellaneous Medication) 0.15 mls @ 0 mls/hr SC HS [facility] Last Admin: 04/07/18 19:56 Dose: 0.15 mls Insulin Human Regular (Humulin R) 0 units SC .MILD SLIDING SCALE PRN PRN Reason: Mild Correctional Scale Last Admin: 04/08/18 06:41 Dose: 2 unit Insulin Human Regular (Humulin R) 0 units SC .BEDTIME SLIDING SC PRN PRN Reason: Bedtime Correctional Scale Miscellaneous Medication (Pharmacy To Dose) 1 each IVPB ASDIR PRN PRN Reason: Pharmacy to Dose VANCOMYCIN Morphine Sulfate (Morphine) 4 mg SLOW IVP Q4H PRN PRN Reason: Pain 2ND LINE Stop: 04/11/18 11:39 Last Admin: 04/08/18 04:51 Dose: 4 mg Morphine Sulfate (Morphine) 2 mg SLOW IVP Q4H PRN PRN Reason: Pain 1ST LINE Stop: 04/11/18 11:39 Last Admin: 04/08/18 15:13 Dose: 2 mg Polyethylene Glycol (Miralax) 17 gm PO DAILY [facility] Senna (Senokot) 2 tab PO HSPRN PRN PRN Reason: Constipation Senna/Docusate Sodium (Senokot S) 2 tab PO BID [facility]
[2018-04-08] MEDS: Atorvastatin Calcium 20 MG TAB PO SCH (20:43)
[2018-04-08] MEDS: Glimepiride 2 MG TAB PO SCH (20:43)
[2018-04-08] MEDS: Insulin Glargine 15 UNITS in Pre-Filled Syringe SC SCH (20:44)
[2018-04-09] MEDS: Morphine 4 MG/ML VIAL SLOW IVP PRN ×4 (01:02→20:13)
[2018-04-09] MEDS: HYDROcodone/Acetaminophen 10/325 mg Tablet PO PRN ×2 (03:01→18:08)
[2018-04-09] MEDS: Gabapentin 300 MG CAP PO SCH ×2 (09:23→20:06)
[2018-04-09] MEDS: Polyethylene Glycol 3350 17 GM Packet PO SCH (09:23)
[2018-04-09] MEDS: Senokot S 8.6-50 MG TAB PO SCH ×2 (09:23→20:07)
[2018-04-09] MEDS: Aspirin 81 mg Enteric Coated Tablet PO SCH (09:23)
[2018-04-09] MEDS: Famotidine 20 MG TAB PO SCH ×2 (09:24→20:06)
[2018-04-09] MEDS: Clopidogrel Bisulfate 75 MG TAB PO SCH (09:24)
[2018-04-09] MEDS: Insulin Glargine 20 UNITS in Pre-Filled Syringe 1 EACH SC SCH (09:29)
[2018-04-09] MEDS: HYDROcodone/Acetaminophen 5/325 mg Tablet PO PRN (11:22)
[2018-04-09] MEDS: Insulin Regular 300 UNITS/3 ML VIAL SC PRN (12:28)
--- NOTE | 2018-04-09 18:05 | PDOC.PN ---
- Subjective Encounter Start Date: 04/09/18 Encounter Start Time: 15:30 Patient seen and examined for gangrene/Osteomyelitis. Pain controlled. No new complaints. No overnight events - Objective Resuscitation Status: Resuscitation Status FULL:Full Resuscitation MAR Reviewed: Yes Vital Signs & Weight: Vital Signs (12 hours) Temp Pulse Resp BP Pulse Ox 04/09/18 08:00 98.0 F 68 16 96 04/09/18 07:46 68 16 138/68 96 Weight Admit Weight 183 lb 3.2 oz Weight 179 lb I&O: 04/08/18 04/09/18 04/10/18 06:59 06:59 06:59 Intake Total 990 840 Output Total 1250 Balance -260 840 Result Diagrams: 04/07/18 12:11 04/07/18 12:11 Additional Labs: Accuchecks 04/09/18 04/09/18 04/09/18 16:38 11:27 09:30 POC Glucose 134 H 229 H 199 H 04/09/18 04/09/18 04/08/18 06:01 03:07 20:41 POC Glucose 186 H 200 H 237 H Phys Exam - Physical Examination Constitutional: NAD Respiratory: no wheezing, no rhonchi Cardiovascular: RRR, no rub Gastrointestinal: soft, non-tender, positive bowel sounds Musculoskeletal: no edema Neurological: moves all 4 limbs Dx/Plan (1) Osteomyelitis of toe of right foot Code(s): M86.9 - OSTEOMYELITIS, UNSPECIFIED Status: Acute Comment: with gangrene, s/p Rt BKA (2) HTN (hypertension) Code(s): I10 - ESSENTIAL (PRIMARY) HYPERTENSION Status: Chronic (3) PVD (peripheral vascular disease) Code(s): I73.9 - PERIPHERAL VASCULAR DISEASE, UNSPECIFIED Status: Chronic (4) CAD (coronary artery disease) Code(s): I25.10 - ATHSCL HEART DISEASE OF [place] CORONARY ARTERY W/O ANG PCTRS Status: Chronic (5) TORRES (acute kidney injury) Code(s): N17.9 - ACUTE KIDNEY FAILURE, UNSPECIFIED Status: Resolved Comment : CKD2, resolved - Plan incentive spirometry Cont current supportive care/current meds -: Change Lantus to 40 units QAM with sliding scale -: AM labs Review of Systems - Review of Systems Respiratory: negative: Cough, Dry, Shortness of Breath, Hemoptysis, SOB with Excertion, Pleuritic Pain, Sputum, Wheezing Cardiovascular: negative: chest pain, palpitations, orthopnea, paroxysmal nocturnal dyspnea, edema, light headedness, other - Medications/Allergies Allergies/Adverse Reactions: Allergies Allergy/AdvReac Type Severity Reaction Status Date / Time No Known Allergies Allergy Verified 03/18/18 12:25 Medications: Current Medications Acetaminophen (Tylenol) 650 mg PO Q4H PRN PRN Reason: Headache/Fever or Mild Pain Last Admin: 04/04/18 21:49 Dose: 650 mg Hydrocodone Bitart/Acetaminophen ([place] 5/325) 1 tab PO Q4H PRN PRN Reason: Moderate Pain (4-6) Last Admin: 04/09/18 11:22 Dose: 1 tab Hydrocodone Bitart/Acetaminophen ([place] 10/325) 2 tab PO Q4H PRN PRN Reason: Severe Pain (7-10) Last Admin: 04/09/18 03:01 Dose: 2 tab Aspirin (Ecotrin) 81 mg PO QAM [facility] Last Admin: 04/09/18 09:23 Dose: 81 mg Atorvastatin Calcium (Lipitor) 20 mg PO HS [facility] Last Admin: 04/08/18 20:43 Dose: 20 mg Calcium Carbonate (Tums) 1,000 mg PO Q4H PRN PRN Reason: Heartburn or Indigestion Clopidogrel Bisulfate (Plavix) 75 mg PO DAILY [facility] Last Admin: 04/09/18 09:24 Dose: 75 mg Dextrose/Water (Dextrose 50%) 25 gm SLOW IVP PRN PRN PRN Reason: Hypoglycemia Famotidine (Pepcid) 20 mg PO BID [facility] Last Admin: 04/09/18 09:24 Dose: 20 mg Gabapentin (Neurontin) 600 mg PO BID [facility] Last Admin: 04/09/18 09:23 Dose: 600 mg Glimepiride (Amaryl) 2 mg PO QPM [facility] Last Admin: 04/08/18 20:43 Dose: 2 mg Glucagon (Glucagon) 1 mg IM PRN PRN PRN Reason: Hypoglycemia Hydralazine HCl (Apresoline) 10 mg SLOW IVP Q4H PRN PRN Reason: SBP Greater Than 180 Hydralazine HCl (Apresoline) 10 mg SLOW IVP Q4H PRN PRN Reason: SBP Greater Than 180 Dextrose/Water (D5w) 1,000 mls @ 0 mls/hr IV .Q0M PRN; As Directed PRN Reason: Hypoglycemia Insulin Glargine 20 units/ (Miscellaneous Medication) 0.2 mls @ 0 mls/hr SC QAM [facility] Last Admin: 04/09/18 09:29 Dose: 0.2 mls Insulin Glargine 15 units/ (Miscellaneous Medication) 0.15 mls @ 0 mls/hr SC HS [facility] Last Admin: 04/08/18 20:44 Dose: 0.15 mls Insulin Glargine 40 units/ (Miscellaneous Medication) 0.4 mls @ 0 mls/hr SC QAM [facility] Insulin Glargine 15 units/ (Miscellaneous Medication) 0.15 mls @ 0 mls/hr SC QPM [facility] Stop: 04/09/18 23:59 Insulin Human Regular (Humulin R) 0 units SC .MILD SLIDING SCALE PRN PRN Reason: Mild Correctional Scale Last Admin: 04/09/18 12:28 Dose: 3 unit Insulin Human Regular (Humulin R) 0 units SC .BEDTIME SLIDING SC PRN PRN Reason: Bedtime Correctional Scale Morphine Sulfate (Morphine) 4 mg SLOW IVP Q4H PRN PRN Reason: Pain 2ND LINE Stop: 04/11/18 11:39 Last Admin: 04/09/18 15:05 Dose: 4 mg Morphine Sulfate (Morphine) 2 mg SLOW IVP Q4H PRN PRN Reason: Pain 1ST LINE Stop: 04/11/18 11:39 Last Admin: 04/09/18 07:21 Dose: 2 mg Polyethylene Glycol (Miralax) 17 gm PO DAILY [facility] Last Admin: 04/09/18 09:23 Dose: 17 gm Senna (Senokot) 2 tab PO HSPRN PRN PRN Reason: Constipation Senna/Docusate Sodium (Senokot S) 2 tab PO BID [facility] Last Admin: 04/09/18 09:23 Dose: 2 tab
[2018-04-09] MEDS: Atorvastatin Calcium 20 MG TAB PO SCH (20:06)
[2018-04-09] MEDS: Glimepiride 2 MG TAB PO SCH (20:07)
[2018-04-09] MEDS ORDERED: Insulin Glargine 15 UNITS in Pre-Filled Syringe 1 EACH SC SCH (21:00)
[2018-04-10 05:47] LABS: Hemoglobin 9.2 g/dL (14.0-18.0); Platelet Count 193 thou/uL (130-400)
[2018-04-10 06:01] LABS: Anion Gap 9 mmol/L (10-20); BUN (Urea Nitrogen) 25 mg/dL (8.4-25.7); Calc. Creatinine Clearance 99 mL/min (70-130); Calcium 8.9 mg/dL (7.8-10.44); Carbon Dioxide 28 mmol/L (23-31); Chloride 106 mmol/L (98-107); Estimated GFR-MDRD Greater than 90; Glucose 132 mg/dL (83-110); Magnesium 1.5 mg/dL (1.6-2.6); Sodium 139 mmol/L (136-145)
[2018-04-10 07:26] VITALS: BP 136/65; TEMP 97.9
[2018-04-10] MEDS: HYDROcodone/Acetaminophen 10/325 mg Tablet PO PRN (08:29)
[2018-04-10] MEDS: Senokot S 8.6-50 MG TAB PO SCH (08:30)
[2018-04-10] MEDS: Gabapentin 300 MG CAP PO SCH (08:30)
[2018-04-10] MEDS: Clopidogrel Bisulfate 75 MG TAB PO SCH (08:30)
[2018-04-10] MEDS: Famotidine 20 MG TAB PO SCH (08:30)
[2018-04-10] MEDS: Aspirin 81 mg Enteric Coated Tablet PO SCH (08:30)
[2018-04-10] MEDS: Polyethylene Glycol 3350 17 GM Packet PO SCH (08:31)
[2018-04-10] MEDS ORDERED: Insulin Glargine 40 UNITS in Pre-Filled Syringe 1 EACH SC SCH (09:00)
[2018-04-10] MEDS ORDERED: Magnesium 2 GM/NS 0.9% 100 ML 2 GM in Premix Bag 1 BAG IVPB SCH (09:30)
[2018-04-10] MEDS ORDERED: Polyethylene Glycol 3350 17 GM Packet PO PRN (09:40)
--- NOTE | 2018-04-10 14:53 | DIS ---
DATE OF ADMISSION: 04/03/2018 DATE OF DISCHARGE: 04/10/2018 DIAGNOSIS: Gangrene of the right foot. PROCEDURE: Right below-knee amputation. DESCRIPTION OF HOSPITAL STAY: Mr. Oswald has recently undergone a right femoral to posterior tibial composite graft in hopes of revascularizing his foot. He had a toe amputation at that time. His toe amputation site has failed to heal and has had progression of the skin and soft tissue necros is. Due to poor runoff, it has been recommended that he undergo [id number] amputation. He has d one well post-amputation. He has home physical therapy and occupational therapy already set up. He is going home on all his usual home medications with the exception of stopping the Plavix. Follow up is with me in 2 weeks.
--- NOTE | 2018-04-10 17:36 | PDOC.PN ---
- Subjective Encounter Start Date: 04/10/18 Encounter Start Time: 09:30 Patient seen and examined for gangrene/osteomyelitis. No new complaints. No overnight events - Objective Resuscitation Status: Resuscitation Status FULL:Full Resuscitation MAR Reviewed: Yes Vital Signs & Weight: Vital Signs (12 hours) Temp Pulse Resp BP Pulse Ox 04/10/18 08:00 97.9 F 70 16 96 04/10/18 07:22 97.9 F 70 16 136/65 96 Weight Admit Weight 183 lb 3.2 oz Weight 179 lb I&O: 04/09/18 04/10/18 04/11/18 06:59 06:59 06:59 Intake Total 1560 Balance 1560 Result Diagrams: 04/10/18 04:49 04/10/18 04:49 Additional Labs: Accuchecks 04/10/18 04/10/18 04/10/18 11:11 04:55 01:52 POC Glucose 273 H 132 H 164 H 04/09/18 20:06 POC Glucose 277 H Phys Exam - Physical Examination Constitutional: NAD Respiratory: no wheezing, no rhonchi Cardiovascular: RRR, no rub Gastrointestinal: soft, non-tender, positive bowel sounds Musculoskeletal: no edema Neurological: moves all 4 limbs Dx/Plan (1) Osteomyelitis of toe of right foot Code(s): M86.9 - OSTEOMYELITIS, UNSPECIFIED Status: Acute Comment: with gangrene, s/p Rt BKA (2) HTN (hypertension) Code(s): I10 - ESSENTIAL (PRIMARY) HYPERTENSION Status: Chronic (3) PVD (peripheral vascular disease) Code(s): I73.9 - PERIPHERAL VASCULAR DISEASE, UNSPECIFIED Status: Chronic (4) CAD (coronary artery disease) Code(s): I25.10 - ATHSCL HEART DISEASE OF [place] CORONARY ARTERY W/O ANG PCTRS Status: Chronic - Plan DVT proph w/SCDs -: Cont post op care -: Cont current dose of Lantus/sliding scale -: Cont current meds as below Review of Systems - Review of Systems Respiratory: negative: Cough, Dry, Shortness of Breath, Hemoptysis, SOB with Excertion, Pleuritic Pain, Sputum, Wheezing Cardiovascular: negative: chest pain, palpitations, orthopnea, paroxysmal nocturnal dyspnea, edema, light headedness, other - Medications/Allergies Allergies/Adverse Reactions: Allergies Allergy/AdvReac Type Severity Reaction Status Date / Time No Known Allergies Allergy Verified 03/18/18 12:25
--- NOTE | 2018-04-12 10:59 | DIS ---
DATE OF ADMISSION: 04/04/2018 DATE OF DISCHARGE: 04/12/2018 Patient was discharged earlier by Dr. Smalls. BRIEF HOSPITAL COURSE: Patient is a 73-year-old male with recent right fifth toe ray amputation with right femoral to popliteal tibial bypass presented to the hospital with right foot pain along with d iscoloration over the surgical site. Please refer to the history and physical for further details. The patient was admitted to the hospital with a diagnosis of right fifth toe osteomyelitis with gangr enous changes. He was started on broad-spectrum antibiotics. Patient was evaluated by Cardiovascula r. He underwent right below-knee amputation for gangrenous right foot. He was discharged earlier by Dr. Smalls. No changes in his home medications were made. FINAL DIAGNOSES: 1. Osteomyelitis with gangrene of the right foot. 2. Hypertension. 3. Peripheral vascular disease. 4. Coronary artery disease, status post coronary artery bypass grafting. 5. History of lung cancer, status post lobectomy. 6. History of pulmonary embolism in the past. 7. Dyslipidemia. 8. Acute kidney injury on chronic kidney disease, stage 2 that improved with hydration. 9. Hyperkalemia with potassium of 5.4, improved. 10. Hyponatremia. Plan of care was discussed with the patient in detail. He stated understanding.
== END 2018-04-10 12:05 | disposition home or self-care (01) | DRG 475 ==
LOC: ERS 20:12 → T4-A 04-04
PROVIDERS: ADMIT Internal Medicine; ATTEND Internal Medicine
PROC: 0Y6H0Z3 Detachment at Right Lower Leg, Low, Open Approach (ICD-10-PCS; principal; 2018-04-06)
DX: T87.53 Necrosis of amputation stump, right lower extremity (principal); E11.52 Type 2 diabetes mellitus with diabetic peripheral angiopathy with gangrene; M86.171 Other acute osteomyelitis, right ankle and foot; E87.1 Hypo-osmolality and hyponatremia; I96 Gangrene, not elsewhere classified; N17.9 Acute kidney failure, unspecified; T87.43 Infection of amputation stump, right lower extremity; E11.69 Type 2 diabetes mellitus with other specified complication; I12.9 Hypertensive chronic kidney disease with stage 1 through stage 4 chronic kidney disease, or unspecified chronic kidney disease; E11.22 Type 2 diabetes mellitus with diabetic chronic kidney disease; N18.2 Chronic kidney disease, stage 2 (mild); I25.10 Atherosclerotic heart disease of native coronary artery without angina pectoris; E78.5 Hyperlipidemia, unspecified; E87.5 Hyperkalemia; E11.65 Type 2 diabetes mellitus with hyperglycemia; D64.9 Anemia, unspecified; Z86.711 Personal history of pulmonary embolism; Z85.118 Personal history of other malignant neoplasm of bronchus and lung; Z88.1 Allergy status to other antibiotic agents; Z88.8 Allergy status to other drugs, medicaments and biological substances; Z79.02 Long term (current) use of antithrombotics/antiplatelets; Z79.82 Long term (current) use of aspirin; Z79.4 Long term (current) use of insulin; Z79.899 Other long term (current) drug therapy; Z90.2 Acquired absence of lung [part of]; Z95.1 Presence of aortocoronary bypass graft; Z89.512 Acquired absence of left leg below knee; Y83.5 Amputation of limb(s) as the cause of abnormal reaction of the patient, or of later complication, without mention of misadventure at the time of the procedure
CPT/HCPCS: 36410; 36415; 36416; 80048; 80053; 80202; 82553; 83605; 83735; 84484; 85014; 85018; 85025; 85049; 85610; 85730; 86140; 87040; 88307; 96361; 96365; 96375; G8981-GP-CK; G8982-GP-CI; J1100; J1815; J2001; J2185; J2270; J2405; J2543; J2704; J3010; J3370; J3475; J7050; L8440; Q0162

== ENCOUNTER 2018-10-28 13:37 | Outpatient (CLI) | payer MEDICARE, OTHER ==
--- NOTE | 2018-10-28 15:55 | RAD ---
TWO VIEWS CHEST: Comparison: 07-01-17 History: Neoplasm of the left lung. FINDINGS: Two views of the chest shows normal sized cardiomediastinal silhouette. There is a left hilar mass, u nchanged compared to the prior exam. The Mediport is unchanged in position. The patient is status pos t sternotomy. A small left pleural effusion may be present. Degenerative changes and post-surgical ch anges are seen in the spine. IMPRESSION: Stable left hilar mass. POS: [facility]
== END 2018-10-28 13:38 | disposition home or self-care (01) ==
LOC: RAD 13:37
PROVIDERS: ATTEND Thoracic Surgery (Cardiothoracic Vascular Surgery)
DX: C34.12 Malignant neoplasm of upper lobe, left bronchus or lung (principal); R91.8 Other nonspecific abnormal finding of lung field
CPT/HCPCS: 71046

== ENCOUNTER 2019-10-29 10:33 | Inpatient (IN) | payer MEDICARE, OTHER ==
[2019-10-29] MEDS ORDERED: Metoprolol Tartrate 5 MG/5 ML VIAL ONE (10:44)
[2019-10-29 11:09] LABS: #Eosinphils 0.1 thou/uL (0.0-0.7); #Lymphocytes 1.2 thou/uL (1.20-3.40); #Neutrophils 7.4 thou/uL (1.40-6.50); %Basophils 0.3 % (0.0-1.0); %Eosinophils 1.1 % (0.0-10.0); %Lymphocytes 12.5 % (21.0-51.0); %Monocytes 9.9 % (0.0-10.0); %Neutrophils 76.2 % (42.0-75.0); Hemoglobin 13.5 g/dL (14.0-18.0); Mean Corpuscular HGB CONC 33.4 g/dL (32.0-36.0); Mean Corpuscular Hemoglobin 28.7 pg (27.0-31.0); Mean Platelet Volume 11.6 fL (7.4-10.4); Platelet Count 120 thou/uL (130-400); RBC Distribution Width 15.5 % (11.5-14.5); Red Blood Cell (RBC) Count 4.71 mill/uL (4.70-6.10); White Blood Cell (WBC) Count 9.7 thou/uL (4.8-10.8)
--- NOTE | 2019-10-29 11:15 | RAD ---
Chest AP view INDICATION: Chest pain COMPARISON: Chest radiograph dated July 19, 2019 FINDINGS: Lungs:Spiculated mass in the left suprahilar region is stable. Cardiac silhouette:Cardiomegaly is stable Pulmonary vasculature:There is prominent pulmonary vascular congestion and perihilar edema Pleural spaces:New small bilateral pleural effusions Upper abdomen:No abnormality seen. Osseous structures: Midline sternotomy changes and ACDF are stable Additional findings:Right chest wall port is stable IMPRESSION: Findings of CHF or volume overload. Stable spiculated mass in the left suprahilar region.
[2019-10-29] MEDS ORDERED: Heparin 1,000 UNITS/ML VIAL ONE (11:26)
[2019-10-29 11:34] LABS: Digoxin Less than 0.15 ng/mL (0.8-2.0)
[2019-10-29 11:43] LABS: Chloride 109 mmol/L (98-107); Potassium 5.1 mmol/L (3.5-5.1); Sodium 141 mmol/L (136-145)
[2019-10-29 11:59] LABS: ALT (SGPT) 23 U/L (8-55); AST (SGOT) 35 U/L (5-34); Albumin 3.9 g/dL (3.4-4.8); Alkaline Phosphatase 62 U/L (40-110); Anion Gap 17 mmol/L (10-20); BUN (Urea Nitrogen) 32 mg/dL (8.4-25.7); Bilirubin, Total 0.9 mg/dL (0.2-1.2); CK (CPK) 192 U/L (30-200); Calc. Creatinine Clearance 0 mL/min (70-130); Calcium 8.9 mg/dL (7.8-10.44); Carbon Dioxide 22 mmol/L (23-31); Estimated GFR-MDRD 44; Globulin 3.5 g/dL (2.4-3.5); Glucose 118 mg/dL (83-110); Lipase 17 U/L (8-78); Protein, Total 7.4 g/dL (5.8-8.1)
[2019-10-29] MEDS ORDERED: Morphine 4 MG/ML VIAL ONE ×2 (12:00→13:53)
[2019-10-29 12:03] LABS: CKMB 11.1 ng/mL (0-6.6)
[2019-10-29 12:23] LABS: INR-International Normal Ratio 1.1; PTT 33.3 SEC (22.9-36.1); Prothrombin Time 13.7 SEC (12.0-14.7)
--- NOTE | 2019-10-29 13:06 | CON ---
DATE OF CONSULTATION: 10/29/2019 REASON FOR CONSULTATION: Congestive heart failure, hypotension, previous bypass surgery, severe peripheral vascular disease, diabetes. HISTORY OF PRESENT ILLNESS: Mr. Grzegorz Oswald is a 74-year-old gentleman. The patient has a long history of coronary artery disease as well as severe peripheral vascular disease. He tells me that in 2008 when [place] was [place] of town, he underwent bypass surgery x4. He said he has been having chest pressure with exertion for at least several weeks. He has also had some shortness of breath and from reading the laboratory test, he has had heart failure for a couple of years. The patient was brought to the hospital on this occasion with increasing difficulty breathing and chest pressure. The patient has received nitroglycerin now and is now chest pain free. EKG, however, is very abnormal. PAST SURGICAL HISTORY: The patient had bypass surgery as mentioned that he says about 10 years ago. He has had severe peripheral vascular disease. He has undergone multiple surgeries for his lower extremities. In January of 2016, he had underwent femoral-popliteal bypass surgery on the right. He had an occluded superficial femoral artery noted. 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 In April of 2017, the patient underwent surgery on the left side of his lower extremity vascular system, left common femoral endarterectomy and left femoral bypass to a lower extremity vessel. However, the patient continued to have severe vascular disease and underwent left below-knee amputation in October 2017. In of February of 2018, the patient had a right common femoral artery to the posterior tibial bypass surgery, but the next month, he had underwent right below-knee amputation. The patient did undergo imaging of the lower extremities in January 2018 prior to some of these surgeries and he was found to have right common iliac patent. Dense calcification in the right common femoral artery. Right femoral bypass showed intermittent flow within the severely diseased deep femoral artery, no flow in the popliteal. On the left, common iliac was patent. There is dense calcification with a 70% stenosis in the external iliac, common femoral showed dense calcification. There was some flow in the left femoral-popliteal bypass. Other past history is history of diabetes. He has a remote history of smoking, but stopped many years ago. MEDICATIONS: At home include; 1. Forxiga. 2. Insulin. 3. Zofran was received here. Other medicines are to be ascertained. Medication listed at the time of discharge in March of 2018 are not listed in the discharge summary, but on the history and physical; 1. Aspirin. 2. Plavix. 3. Gabapentin. 4. Forxiga. 5. Glimepiride. 6. Insulin. 7. Zocor. Were all listed. SOCIAL HISTORY: As mentioned, he quit smoking many years ago. FAMILY HISTORY: Unknown. ALLERGIES: NONE KNOWN. PHYSICAL EXAMINATION: GENERAL: This is an ill-appearing gentleman. His blood pressure is 95 systolic, pulse in the 70 to 80 range. HEENT: Eyes, sclerae are nonicteric. Mouth, mucous membranes are moist. NECK: Supple. No lymphadenopathy. LUNGS: He has bibasilar rales and expiratory wheezing. CARDIAC: Normal S1, normal S2, somewhat distant. I do not hear murmur, rub, or gallop. ABDOMEN: Obese, nontender. No hepatosplenomegaly. EXTREMITIES: Bilateral below-knee amputations. DIAGNOSTIC STUDIES: EKG showed diffuse ST depression. No ST elevation. LABORATORY DATA: Troponin at 10:51 a.m. was 3.37. Potassium is 5.1. The other lab is pending. IMAGING STUDIES: Chest x-ray shows evidence of spiculated mass, left upper lung, and pulmonary edema. ASSESSMENT: 1. Pulmonary edema with hypotension. 2. Mild hyperkalemia. 3. Non-ST elevation myocardial infarction. 4. Previous bypass surgery. 5. Severe peripheral vascular disease. 6. Diabetes longstanding. 7. I have reviewed the chart extensively. At this time, I do not think it would likely to be feasible to access his coronary circulation by the femoral arteries. In addition, the patient is in pulmonary edema and is unable to lie even close to flat. I think it could be very difficult to access the grafts and [place] vessels by the brachial technique or radial technique. 8. The patient also is not a candidate for balloon pump placement in the femoral arteries due to severe peripheral vascular disease. 9. The patient's prognosis is likely to be poor, for now we are treating with nitrates as blood pressure allows and heparin, anti-platelet drugs. Very poor prognosis. Unfortunately, this gentleman does not appear to be a candidate for re-bypass with his multiple medical problems. 10. We will also do echocardiogram to evaluate left ventricular function, very poor to guarded prognosis. Job ID: [id number]
[2019-10-29] MEDS ORDERED: Nitroglycerin 50 MG/250 ML BOT 250 ML ONE (14:07)
[2019-10-29] MEDS ORDERED: Clopidogrel Bisulfate 300 MG TAB PO SCH (14:30)
[2019-10-29] MEDS ORDERED: Nitroglycerin 50 MG/250 ML BOT 250 ML IVPB SCH (14:45)
[2019-10-29] MEDS ORDERED: Dextrose 50% Abboject 50 ML SYRINGE SLOW IVP PRN (14:49)
[2019-10-29] MEDS ORDERED: Dextrose 5% in Water 1,000 ML IV PRN (14:49)
[2019-10-29] MEDS ORDERED: Bisacodyl 5 MG TAB PO PRN (14:51)
[2019-10-29] MEDS ORDERED: HYDROcodone/Acetaminophen 7.5/325 mg Tablet PO PRN (14:51)
[2019-10-29] MEDS ORDERED: Ondansetron ODT 4 MG TAB PO PRN (14:51)
[2019-10-29] MEDS ORDERED: Loperamide HCl 2 MG CAP PO PRN (14:51)
[2019-10-29] MEDS ORDERED: HYDROcodone/Acetaminophen 5/325 mg Tablet PO PRN (14:51)
[2019-10-29] MEDS ORDERED: Labetalol HCl 100 MG/20 ML VIAL SLOW IVP PRN (14:55)
[2019-10-29] MEDS ORDERED: Docusate 100 MG CAP PO PRN (14:55)
[2019-10-29] MEDS ORDERED: diphenhydrAMINE 25 MG CAP PO PRN (14:55)
[2019-10-29] MEDS ORDERED: Melatonin 3 MG TAB PO PRN (14:55)
[2019-10-29] MEDS ORDERED: Benzonatate 100 MG CAP PO PRN (14:55)
[2019-10-29] MEDS ORDERED: Morphine 2 MG/ML SYRINGE SLOW IVP PRN (14:56)
--- NOTE | 2019-10-29 15:02 | PDOC.HHP ---
Hospitalist HPI - History of Present Illness Chest pain and shortness of breath History of Present Illness: 74-year-old gentleman with an extensive past medical history presents with several weeks of shortness of breath and worsening chest pain. Patient with past medical history of coronary artery disease status post coronary artery bypass grafting, hypertension, peripheral vascular disease with numerous bypasses to the lower extremity and so severe to the point where the patient has bilateral below the knee amputation, lung cancer status post lobectomy and chemotherapy, history pulmonary embolism, chronic kidney disease, insulin- dependent diabetes mellitus, hyperlipidemia and osteoarthritis. I find the patient in the emergency department and he is sitting upright breathing comfortably on low-flow nasal cannula. Patient is read by his family and loved ones were able to aid in history. Patient was brought in by air ambulance and initially activated is a code STEMI. This has been canceled by cardiology and the patient has been diagnosed with NSTEMI. Patient admitted to the intensive care unit, short and long-term prognosis are guarded for this patient. Hospitalist ROS - Review of Systems All other systems reviewed; all pertinent +/- noted in HPI/Subj Hospitalist History - Past Medical History Source: patient, family Cardiac: reports: CAD, CHF, HTN, SD, Hyperlipidemia, Valve insufficiency Pulmonary: reports: angina, congestive heart failure, high cholesterol, lung disease, pulmonary embolism Heme/Onc: reports: Cancer (Lung s/p lobectomy and chemo) Hepatobiliary: reports: Cholelithiasis Musculoskeletal: reports: Chronic low back pain, Osteoarthritis Renal/: reports: Chronic renal insuff - Past Surgical History Past Surgical History: reports: Cholecystectomy, CABG, Other (Hx of stents. Hx of bilateral BKA. Severe peripheral arterial disease with multiple bypasses of the LE in the past) - Family History Family History: reports: diabetes mellitus, hypertension - Social History Smoking Status: Unknown if ever smoked (current non smoker) Alcohol: reports: None Drugs: reports: none Living Situation: With Family Domestic Violence: Negative Activity level: bed bound - Exam General Appearance: NAD, awake alert Eye: anicteric sclera ENT: normocephalic atraumatic, moist mucosa Neck: supple, no lymphadenopathy Heart: no murmur, no gallops, no rubs Respiratory: CTAB, no wheezes, no rales (rales are not appreciated while in the ED when I listened), no ronchi, normal chest expansion Gastrointestinal: soft, non-tender, non-distended, no guarding, no rigidity Extremities: no edema Skin: no lesions, no rashes Neurological: cranial nerve grossly intact, no focal deficits Musculoskeletal: generalized weakness Psychiatric: normal affect, A&O x 3 Hospitalist Results - Labs Result Diagrams: 10/29/19 10:51 10/29/19 10:16 Lab results: WBC 9.7 thou/uL (4.8-10.8) 10/29/19 10:51 Hgb 13.5 g/dL (14.0-18.0) L 10/29/19 10:51 Hct 40.5 % (42.0-52.0) L 10/29/19 10:51 MCV 86.0 fL (78.0-98.0) 10/29/19 10:51 Plt Count 120 thou/uL (130-400) L 10/29/19 10:51 Neutrophils % 76.2 % (42.0-75.0) H 10/29/19 10:51 Sodium 141 mmol/L (136-145) 10/29/19 10:16 Potassium 5.1 mmol/L (3.5-5.1) 10/29/19 10:16 Chloride 109 mmol/L (98-107) H 10/29/19 10:16 Carbon Dioxide 22 mmol/L (23-31) L 10/29/19 10:16 BUN 32 mg/dL (8.4-25.7) H 10/29/19 10:16 Creatinine 1.54 mg/dL (0.7-1.3) H 10/29/19 10:16 Glucose 118 mg/dL (83-110) H 10/29/19 10:16 Calcium 8.9 mg/dL (7.8-10.44) 10/29/19 10:16 Total Bilirubin 0.9 mg/dL (0.2-1.2) 10/29/19 10:16 AST 35 U/L (5-34) H 10/29/19 10:16 ALT 23 U/L (8-55) 10/29/19 10:16 Alkaline Phosphatase 62 U/L (40-110) 10/29/19 10:16 Creatine Kinase 192 U/L (30-200) 10/29/19 10:16 CK-MB (CK-2) 11.1 ng/mL (0-6.6) H* 10/29/19 10:51 Troponin I 3.370 ng/mL (< 0.028) H* 10/29/19 10:51 Serum Total Protein 7.4 g/dL (5.8-8.1) 10/29/19 10:16 Albumin 3.9 g/dL (3.4-4.8) 10/29/19 10:16 Lipase 17 U/L (8-78) 10/29/19 10:16 - Radiology Interpretation Chest x-ray Status: image reviewed by in Hospitalist H&P A/P - Problem (1) NSTEMI (non-ST elevated myocardial infarction) Code(s): I21.4 - NON-ST ELEVATION (NSTEMI) MYOCARDIAL INFARCTION Status: Acute (2) DM type 2, uncontrolled, with lower extremity ulcer Code(s): E11.622 - TYPE 2 DIABETES MELLITUS WITH OTHER SKIN ULCER; E11.65 - TYPE 2 DIABETES MELLITUS WITH HYPERGLYCEMIA; L97.909 - NON-PRS CHRONIC ULC UNSP PRT OF UNSP LOW LEG W UNSP SEVERITY Status: Acute (3) HLD (hyperlipidemia) Code(s): E78.5 - HYPERLIPIDEMIA, UNSPECIFIED Status: Acute (4) Debility Code(s): R53.81 - OTHER [place] Status: Acute (5) Acute CHF (congestive heart failure) Code(s): I50.9 - HEART FAILURE, UNSPECIFIED Status: Acute Qualifiers: Qualified Code(s): I50.21 - Acute systolic (congestive) heart failure (6) Anemia Code(s): D64.9 - ANEMIA, UNSPECIFIED Status: Acute Qualifiers: Anemia type: other cause Other causes of anemia: antineoplastic chemotherapy Qualified Code(s): D64.81 - Anemia due to antineoplastic chemotherapy (7) Cardiomyopathy Code(s): I42.9 - CARDIOMYOPATHY, UNSPECIFIED Status: Acute (8) Dyspnea Code(s): R06.00 - DYSPNEA, UNSPECIFIED Status: Acute (9) Volume overload Code(s): E87.70 - FLUID OVERLOAD, UNSPECIFIED Status: Acute (10) CAD (coronary artery disease) Code(s): I25.10 - ATHSCL HEART DISEASE OF [place] CORONARY ARTERY W/O ANG PCTRS Status: Chronic (11) HTN (hypertension) Code(s): I10 - ESSENTIAL (PRIMARY) HYPERTENSION Status: Chronic (12) Lung cancer Code(s): C34.90 - MALIGNANT NEOPLASM OF UNSP PART OF UNSP BRONCHUS OR LUNG Status: Chronic (13) PVD (peripheral vascular disease) Code(s): I73.9 - PERIPHERAL VASCULAR DISEASE, UNSPECIFIED Status: Chronic - Plan Plan: Plan: admit to intensive care unit cardiology consultation, recommendations appreciate pulmonology/critical-care consultation, recommendations appreciated further plan of care per cardiology may require cardiac catheterization, though with extensive peripheral arterial disease and bypassing to the femoral arteries this may be difficult to impossible patient with low blood pressure on admission, will hold diuretic therapy at this time, deferred cardiology patient saturating well on low-flow nasal cannula long and short acting insulin for glucose control Hold Metformin and oral diabetes medications, in case the patient receives contrast dye blood pressure support if needed restart home medications as able short and long-term prognosis for this patient is regarded will consult palliative care for goals of care, patient may have exhausted all of his surgical options and we may be left with medical management alone
[2019-10-29] MEDS ORDERED: Nitroglycerin 0.4 MG TAB (25 Tab Bottle) SL PRN (15:15)
[2019-10-29] MEDS ORDERED: Enoxaparin Sodium 100 MG/ML SYRINGE SC SCH (15:15)
[2019-10-29 15:38] LABS: Troponin I 4.026 ng/mL (< 0.028)
[2019-10-29] MEDS: HumaLOG 300 UNITS/3 ML VIAL SC PRN (15:43)
--- NOTE | 2019-10-29 18:00 | EKG ---
Test Reason : Blood Pressure : / mmHG Vent. Rate : 090 BPM Atrial Rate : 090 BPM P-R Int : 188 ms QRS Dur : 096 ms QT Int : 368 ms P-R-T Axes : 035 104 164 degrees QTc Int : 450 ms Sinus rhythm with Premature atrial complexes Rightward axis Marked ST abnormality, possible lateral subendocardial injury Abnormal ECG When compared with ECG of 19-MAR-2018 09:39, Premature atrial complexes are now Present ST more depressed in Lateral leads Nonspecific T wave abnormality, worse in Inferior leads T wave inversion now evident in Anterolateral leads Confirmed by Tish HERNANDEZ ([id number]) on 10/29/2019 6:00:17 PM Referred By: PAULINO Confirmed By:Tish HERNANDEZ
[2019-10-29] MEDS: Ondansetron PF 4 MG/2 ML Vial IVP PRN (19:03)
[2019-10-29] MEDS ORDERED: Furosemide 20 MG/2 ML VIAL SLOW IVP SCH (19:15)
[2019-10-29 20:28] LABS: Troponin I 5.341 ng/mL (< 0.028)
[2019-10-29] MEDS: Enoxaparin Sodium 100 MG/ML SYRINGE SC SCH (21:14)
[2019-10-29] MEDS: Gabapentin 300 MG CAP PO SCH (21:15)
[2019-10-29] MEDS: Atorvastatin Calcium 20 MG TAB PO SCH (21:15)
[2019-10-29] MEDS: Famotidine 20 MG TAB PO SCH (21:15)
[2019-10-29] MEDS: Insulin Glargine 20 UNITS in Pre-Filled Syringe 1 EACH SC SCH (21:39)
[2019-10-30] MEDS: Ondansetron PF 4 MG/2 ML Vial IVP PRN (04:42)
[2019-10-30 05:48] LABS: Anion Gap 18 mmol/L (10-20); BUN (Urea Nitrogen) 41 mg/dL (8.4-25.7); Calc. Creatinine Clearance 48 mL/min (70-130); Calcium 8.6 mg/dL (7.8-10.44); Carbon Dioxide 17 mmol/L (23-31); Chloride 109 mmol/L (98-107); Estimated GFR-MDRD 38; Glucose 90 mg/dL (83-110); Potassium 5.2 mmol/L (3.5-5.1); Sodium 139 mmol/L (136-145)
[2019-10-30 06:03] LABS: #Basophils 0.1 thou/uL (0.0-0.2); #Eosinphils 0.1 thou/uL (0.0-0.7); #Lymphocytes 2.1 thou/uL (1.20-3.40); #Monocytes 0.9 thou/uL (0.11-0.59); #Neutrophils 5.3 thou/uL (1.40-6.50); %Basophils 0.8 % (0.0-1.0); %Eosinophils 1.1 % (0.0-10.0); %Lymphocytes 24.9 % (21.0-51.0); %Neutrophils 62.1 % (42.0-75.0); Hemoglobin 13.7 g/dL (14.0-18.0); Large Platelets SLIGHT; MDiff Complete? YES; Mean Corpuscular HGB CONC 31.9 g/dL (32.0-36.0); Mean Corpuscular Volume 87.7 fL (78.0-98.0); Platelet Count 116 thou/uL (130-400); Platelet Morphology Comment Appears Decreased; RBC Distribution Width 15.9 % (11.5-14.5); Red Blood Cell (RBC) Count 4.88 mill/uL (4.70-6.10); White Blood Cell (WBC) Count 8.4 thou/uL (4.8-10.8)
[2019-10-30] MEDS: Aspirin 81 mg Enteric Coated Tablet PO SCH (08:25)
[2019-10-30] MEDS: Gabapentin 300 MG CAP PO SCH ×2 (08:25→21:04)
[2019-10-30] MEDS: Furosemide 20 MG/2 ML VIAL SLOW IVP SCH (08:25)
[2019-10-30] MEDS: Famotidine 20 MG TAB PO SCH ×2 (08:26→21:04)
[2019-10-30] MEDS: Enoxaparin Sodium 100 MG/ML SYRINGE SC SCH ×2 (08:26→21:06)
[2019-10-30] MEDS: Clopidogrel Bisulfate 75 MG TAB PO SCH (08:26)
[2019-10-30] MEDS: Multivit, Therapeutic 1 TAB PO SCH (08:26)
[2019-10-30] MEDS: Levothyroxine Sodium 50 MCG TAB PO SCH (08:26)
[2019-10-30] MEDS: Insulin Glargine 20 UNITS in Pre-Filled Syringe 1 EACH SC SCH ×2 (08:28→21:18)
[2019-10-30] MEDS ORDERED: Carvedilol 3.125 MG TAB PO SCH (09:08)
[2019-10-30] MEDS ORDERED: [UNRECOGNIZED DRUG - REMARK] IVPB PRN (09:31)
--- NOTE | 2019-10-30 09:31 | PRG ---
DATE OF SERVICE: 10/30/2019 SUBJECTIVE: Mr. Oswald is breathing somewhat better today. He can lay back about 45 degrees before becoming short of breath before he had to sit up even higher. He is also less short of breath. OBJECTIVE: VITAL SIGNS: His blood pressure is variable. The most recent; however, is 90/60 and pulse is 90. LUNGS: Clear. Yesterday, I heard rales. CARDIAC: Normal S1 and normal S2. ABDOMEN: Soft and nontender. EXTREMITIES: Warm and dry. LABORATORY DATA: Echocardiogram showed ejection fraction of 15% to 20% with wall motion abnormalities as outlined in the echo with severe mitral regurgitation. ASSESSMENT: 1. Congestive heart failure, somewhat improved, but still in heart failure. 2. Hypotension. 3. Non-ST elevation infarction with a peak troponin of 5.3. 4. Renal failure, creatinine 1.75. 5. Potassium is 5.2, hyperkalemia. PLAN: The prognosis remains very guarded. He has severe peripheral vascular disease. I do not think catheterization could be done from either leg. Certainly, a balloon pump could not be placed from the legs, was continued on intravenous nitroglycerin and Lasix. Continue to follow closely. Prognosis guarded to poor. This is a very pleasant gentleman. Job ID: [id number]
--- NOTE | 2019-10-30 11:37 | CON ---
DATE OF CONSULTATION: 10/30/2019 SERVICE: Pulmonary Medicine. REASON FOR CONSULTATION: ICU patient. HISTORY OF PRESENT ILLNESS: The patient is a 74-year-old white male with past medical history significant for horrendous coronary artery disease. He was in his usual state of health when he started having onset of chest discomfort, typical of his angina. When it did not go away after sublingual nitro, he presented to the emergency department. At that location, he was initiated on a nitro drip. This caused a little bit of a headache, but his chest pain has resolved. Overnight, his blood pressures have been under good control, and he has been chest pain-free. He denies any nausea, vomiting, diarrhea, or shortness of breath. PAST MEDICAL HISTORY: 1. Chronic systolic heart failure. 2. Hypertension. 3. Coronary artery disease. 4. Peripheral vascular disease. 5. Type 2 diabetes mellitus. 6. History of non-small cell lung cancer. 7. Type 2 diabetes mellitus. PAST SURGICAL HISTORY: 1. Coronary artery bypass graft x4 vessels. 2. Left upper lobectomy. 3. Cholecystectomy, laparoscopic. 4. Neck surgery. 5. Right femoral-popliteal bypass. 6. Great left toe amputation. 7. Left BKA in 2017. 8. Transmetatarsal amputation of the left foot in 2017. FAMILY HISTORY: Noncontributory. SOCIAL HISTORY: Negative for alcohol, tobacco, or illicit drug use currently. He has no exposure to chemicals, dust, asbestos, or tuberculosis, otherwise. He has a remote history of smoking. ALLERGIES: NO KNOWN DRUG ALLERGIES. MEDICATIONS: List of his inpatient medications were reviewed. No specific updates were made at this time. REVIEW OF SYSTEMS: General, head, ears, eyes, nose, throat, cardiovascular, respiratory, GI, , musculoskeletal, neurologic, and skin is negative except as mentioned in the HPI. He specifically denies any infectious elements. LABORATORY DATA: WBC 8.4, hemoglobin 13.7, and platelets 116,000. INR 1.1. Creatinine 1.75 and up-trending. Potassium 5.2. Basic metabolic profile is otherwise unremarkable. Troponin is going up to 5.3. Liver function studies were unremarkable. Digoxin level is below the assay limit of 0.15. IMAGIN. Echocardiogram demonstrates 15% to 20% ejection fraction with a moderate to severely dilated left atrium. Severe mitral regurgitation is also noted. Global hypokinesis is evident. 2. Chest x-ray demonstrates bilateral pleural effusions. Volume loss is present on the left. Interstitial infiltrates, and cephalization is noted, all consistent with volume overload. There is a widened carinal angle suggestive of left atrial enlargement. ASSESSMENT: 1. Acute hypoxic respiratory failure. 2. Non-ST elevation myocardial infarction. 3. Coronary artery disease, severe and nonoperable/not amenable to intervention. 4. History of left upper lobectomy. 5. Acute on chronic systolic and valvular heart failure. 6. Severe mitral regurgitation. DISCUSSION AND PLAN: The patient is doing fine from respiratory standpoint. We will continue to diurese him down to euvolemia, which is fast approaching. He has developed a little bump in creatinine, likely secondary to prerenal causes. Pulmonary/Critical Care will continue to follow along in this location. Hopefully, he will convert comfortably over to oral agents, and wean off the nitro drip. Once this occurs, he could be considered for transition to the floor. Critical Care will follow in this location. 70 minutes have been devoted to this patient in various activities. I personally reviewed all imaging studies and laboratory data noted within this document. For fifty percent of this time, I was interacting with the patient at the bedside or coordinating care with the care team. For the remainder of the time I was immediately available to the patient in the hospital unit. Job ID: [id number] MTDD
[2019-10-30] MEDS: HumaLOG 300 UNITS/3 ML VIAL SC PRN ×2 (13:22→21:18)
--- NOTE | 2019-10-30 13:24 | PDOC.HOSPP ---
- Subjective Subjective: Seen and examined. Patient breathing comfortably on low-flow nasal cannula. Patient remains a nitroglycerin drip, chest pain free this a.m. Deny shortness of breath. Patient did have some headache and nausea likely side effects of the nitroglycerin. He is able to keep his medications down is not been vomiting the same. Again discussed briefly the critical nature of the patient's illness and the severity of his coronary disease, patient again asks me do everything I can to fix them. I do not think the patient fully understands how end-stage he is at this point. - Objective Vital Signs & Weight: Vital Signs (12 hours) Temp Pulse Ox 10/30/19 08:00 98.0 F 100 10/30/19 04:00 98.7 F Weight Weight 201 lb 1.6 oz Most Recent Monitor Data Heart Rate from ECG 86 NIBP 92/67 NIBP BP-Mean 75 Respiration from ECG 13 SpO2 100 I&O: 10/29/19 10/30/19 10/31/19 06:59 06:59 06:59 Intake Total 14.6 463.7 Output Total 1300 540 Balance -1285.4 -76.3 Result Diagrams: 10/30/19 04:50 10/30/19 04:50 Additional Labs: Accuchecks 10/30/19 10/30/19 10/29/19 08:31 04:53 21:22 POC Glucose 127 H 90 108 10/29/19 15:22 POC Glucose 183 H Radiology Reviewed by me: Yes Hospitalist ROS - Review of Systems All other systems reviewed; all pertinent +/- noted in HPI/Subj - Medication Medications: Active Medications Generic Name Dose Route Start Last Admin Trade Name Freq PRN Reason Stop Dose Admin Hydrocodone Bitart/Acetaminophen 1 tab 10/29/19 14:51 10/29/19 15:12 [place] 7.5/325 PO 1 tab Q4H PRN Administration Severe Pain (7-10) Albuterol/Ipratropium 3 ml 10/29/19 14:55 10/29/19 18:46 Duoneb NEB 3 ml Q4H PRN Administration SOB &/or Wheezing Aspirin 81 mg 10/30/19 09:00 10/30/19 08:25 Ecotrin PO 81 mg QAM NUBIA Administration Atorvastatin Calcium 20 mg 10/29/19 21:00 10/29/19 21:15 Lipitor PO 20 mg HS NUBIA Administration Clopidogrel Bisulfate 75 mg 10/30/19 09:00 10/30/19 08:26 Plavix PO 75 mg DAILY NUBIA Administration Enoxaparin Sodium 90 mg 10/29/19 21:00 10/30/19 08:26 Lovenox SC 90 mg BID NUBIA Administration Famotidine 20 mg 10/29/19 21:00 10/30/19 08:26 Pepcid PO 20 mg BID NUBIA Administration Furosemide 20 mg 10/30/19 09:00 10/30/19 08:25 Lasix SLOW IVP 20 mg DAILY NUBIA Administration Gabapentin 600 mg 10/29/19 21:00 10/30/19 08:25 Neurontin PO 600 mg BID NUBIA Administration Nitroglycerin/Dextrose 250 mls @ 0 mls/hr 10/29/19 14:45 10/29/19 14:10 Nitroglycerin 50 Mg/250 Ml Bot IVPB 250 mls INF NUBIA Administration Protocol Insulin Glargine 20 units/ 0.2 mls @ 1 mls/hr 10/29/19 21:00 10/30/19 08:28 Miscellaneous Medication SC 0.2 mls BID NUBIA Administration Insulin Human Lispro 0 units 10/29/19 14:49 10/29/19 15:43 Humalog SC 3 unit .AGGRESSIVE SLIDING PRN Administration Aggressive Correctional Scale Levothyroxine Sodium 50 mcg 10/30/19 06:00 10/30/19 08:26 Synthroid PO 50 mcg 0600 NUBIA Administration Morphine Sulfate 2 mg 10/29/19 14:56 10/29/19 16:30 Morphine SLOW IVP 2 mg Q4H PRN Administration Moderate to Severe Pain (6-10) Multivitamins 1 tab 10/30/19 09:00 10/30/19 08:26 Theragran PO 1 tab DAILY NUBIA Administration Ondansetron HCl 4 mg 10/29/19 14:51 10/30/19 04:42 Zofran IVP 4 mg Q6H PRN Administration Nausea/Vomiting - Exam General Appearance: NAD Eye: anicteric sclera ENT: normocephalic atraumatic, moist mucosa Neck: supple, symmetric, no lymphadenopathy Heart: no murmur, no gallops, no rubs Respiratory: CTAB, no wheezes, no rales, no ronchi, normal chest expansion, no tachypnea Gastrointestinal: soft, non-tender, non-distended, no guarding, no rigidity Extremities: no edema Skin: no rashes Neurological: cranial nerve grossly intact, no focal deficits Musculoskeletal: generalized weakness Musculoskeletal - other findings: Bilateral leg amputations Psychiatric: A&O x 3 Hosp A/P (1) NSTEMI (non-ST elevated myocardial infarction) Code(s): I21.4 - NON-ST ELEVATION (NSTEMI) MYOCARDIAL INFARCTION Status: Acute (2) DM type 2, uncontrolled, with lower extremity ulcer Code(s): E11.622 - TYPE 2 DIABETES MELLITUS WITH OTHER SKIN ULCER; E11.65 - TYPE 2 DIABETES MELLITUS WITH HYPERGLYCEMIA; L97.909 - NON-PRS CHRONIC ULC UNSP PRT OF UNSP LOW LEG W UNSP SEVERITY Status: Acute (3) HLD (hyperlipidemia) Code(s): E78.5 - HYPERLIPIDEMIA, UNSPECIFIED Status: Acute (4) Debility Code(s): R53.81 - OTHER MALAISE Status: Acute (5) Acute CHF (congestive heart failure) Code(s): I50.9 - HEART FAILURE, UNSPECIFIED Status: Acute Qualifiers: Qualified Code(s): I50.21 - Acute systolic (congestive) heart failure (6) Anemia Code(s): D64.9 - ANEMIA, UNSPECIFIED Status: Acute Qualifiers: Anemia type: other cause Other causes of anemia: antineoplastic chemotherapy Qualified Code(s): D64.81 - Anemia due to antineoplastic chemotherapy (7) Cardiomyopathy Code(s): I42.9 - CARDIOMYOPATHY, UNSPECIFIED Status: Acute (8) Dyspnea Code(s): R06.00 - DYSPNEA, UNSPECIFIED Status: Acute (9) Volume overload Code(s): E87.70 - FLUID OVERLOAD, UNSPECIFIED Status: Acute (10) CAD (coronary artery disease) Code(s): I25.10 - ATHSCL HEART DISEASE OF [place] CORONARY ARTERY W/O ANG PCTRS Status: Chronic (11) HTN (hypertension) Code(s): I10 - ESSENTIAL (PRIMARY) HYPERTENSION Status: Chronic (12) Lung cancer Code(s): C34.90 - MALIGNANT NEOPLASM OF UNSP PART OF UNSP BRONCHUS OR LUNG Status: Chronic (13) PVD (peripheral vascular disease) Code(s): I73.9 - PERIPHERAL VASCULAR DISEASE, UNSPECIFIED Status: Chronic - Plan Plan: Intensive care unit cardiology consultation, recommendations appreciated pulmonology/critical-care consultation, recommendations appreciated excellent further plan of care per cardiology may require cardiac catheterization, though with extensive peripheral arterial disease and bypassing to the femoral arteries this may be difficult to impossible continue nitroglycerin drip per cardiology patient saturating well on low-flow nasal cannula long and short acting insulin for glucose control all Metformin on oral diabetes medications in case patient receives contrast dye blood pressure support if needed restart home medications as able short and long-term prognosis for this patient remain guarded Disposition: unfortunately this patient does not yet understand the severe/ end- stage nature of his coronary artery disease and peripheral arterial disease that make it difficult to impossible to perform acute percutaneous intervention. Patient with severe global hypokinesis seen on echocardiogram with injection fraction of 15%. Maximal medical therapy at this time. After a period of time with maximal medical therapy the patient will need to repeat echocardiogram and may require an AICD.
[2019-10-30] MEDS: Carvedilol 3.125 MG TAB PO SCH (17:39)
[2019-10-30] MEDS: Atorvastatin Calcium 20 MG TAB PO SCH (21:04)
[2019-10-31] MEDS: Levothyroxine Sodium 50 MCG TAB PO SCH (06:11)
[2019-10-31 07:34] LABS: #Eosinphils 0.2 thou/uL (0.0-0.7); #Lymphocytes 1.4 thou/uL (1.20-3.40); #Neutrophils 4.3 thou/uL (1.40-6.50); %Basophils 0.7 % (0.0-1.0); %Eosinophils 3.1 % (0.0-10.0); %Lymphocytes 20.2 % (21.0-51.0); %Monocytes 14.6 % (0.0-10.0); %Neutrophils 61.5 % (42.0-75.0); Hemoglobin 13.4 g/dL (14.0-18.0); Mean Corpuscular HGB CONC 32.7 g/dL (32.0-36.0); Mean Corpuscular Hemoglobin 28.4 pg (27.0-31.0); Mean Corpuscular Volume 86.9 fL (78.0-98.0); Mean Platelet Volume 11.3 fL (7.4-10.4); Platelet Count 120 thou/uL (130-400); RBC Distribution Width 15.5 % (11.5-14.5); Red Blood Cell (RBC) Count 4.73 mill/uL (4.70-6.10)
[2019-10-31 07:45] LABS: Anion Gap 16 mmol/L (10-20); BUN (Urea Nitrogen) 52 mg/dL (8.4-25.7); Calc. Creatinine Clearance 46 mL/min (70-130); Calcium 8.3 mg/dL (7.8-10.44); Carbon Dioxide 18 mmol/L (23-31); Chloride 106 mmol/L (98-107); Estimated GFR-MDRD 39; Glucose 152 mg/dL (83-110); Potassium 5.2 mmol/L (3.5-5.1); Sodium 135 mmol/L (136-145)
--- NOTE | 2019-10-31 08:37 | RAD ---
SINGLE VIEW CHEST: Date: 10/31/19 COMPARISON: 10/29/19. HISTORY: CHF. FINDINGS: Single view of the chest shows an enlarged but stable cardiomediastinal silhouette. The patient is st atus post sternotomy. The MediPort is unchanged in position. There are small bilateral pleural effusi ons. No consolidation is seen. No changes compared to the prior exam. IMPRESSION: Stable exam. POS: [facility]
[2019-10-31] MEDS ORDERED: Enoxaparin Sodium 100 MG/ML SYRINGE SC SCH (09:00)
[2019-10-31] MEDS: Carvedilol 3.125 MG TAB PO SCH ×2 (09:05→20:49)
[2019-10-31] MEDS: Clopidogrel Bisulfate 75 MG TAB PO SCH (09:05)
[2019-10-31] MEDS: Aspirin 81 mg Enteric Coated Tablet PO SCH (09:05)
[2019-10-31] MEDS: Famotidine 20 MG TAB PO SCH ×2 (09:05→09:15)
[2019-10-31] MEDS: Gabapentin 300 MG CAP PO SCH ×2 (09:05→20:49)
[2019-10-31] MEDS: Enoxaparin Sodium 100 MG/ML SYRINGE SC SCH ×2 (09:06→20:49)
[2019-10-31] MEDS: Insulin Glargine 20 UNITS in Pre-Filled Syringe 1 EACH SC SCH ×2 (09:06→20:49)
[2019-10-31] MEDS: Furosemide 20 MG/2 ML VIAL SLOW IVP SCH (09:06)
[2019-10-31] MEDS: Multivit, Therapeutic 1 TAB PO SCH (09:06)
[2019-10-31] MEDS ORDERED: Nitroglycerin 2% Ointment 1 INCH/1 GM Packet TOP SCH (10:00)
--- NOTE | 2019-10-31 10:18 | PRG ---
DATE OF SERVICE: 10/31/2019 SUBJECTIVE: Mr. Oswald is doing somewhat better. His blood pressure is improved to 120 systolic range. His pulse is in the 80 to 90 range. He is tolerating the low-dose carvedilol, which was started. The patient intermittently becomes short of breath, but the nurse tells me when he is reassured, he is fine and breathes normally. His oxygen saturations are 100% on nasal cannula. He is not having chest pain. OBJECTIVE: LUNGS: Clear. CARDIAC: Distant, but I do not hear any murmur, rub, or gallop. ABDOMEN: Obese and nontender. EXTREMITIES: He has previous below-knee amputations. ASSESSMENT: 1. Congestive heart failure, systolic, severe, slowly improving. 2. Severe mitral regurgitation. 3. Previous bypass surgery. 4. Renal insufficiency. 5. Hyperkalemia. 6. Severe peripheral vascular disease. PLAN: Given him furosemide twice a day intravenously. He is on low-dose carvedilol. Cannot use JEAN inhibitors yet due to hyperkalemia. Long-term prognosis guarded. Fortunately, he has made some at least small improvement here in the hospital. We will move him to the telemetry. The long-term prognosis is poor. Not a candidate for reoperation. Job ID: [id number]
--- NOTE | 2019-10-31 10:44 | PDOC.HOSPP ---
- Subjective Subjective: Seen and examined. Denies chest pain or shortness of breath. Patient tells me that he did not sleep well and had a rough night. Patient states that he is been very down and depressed with feelings that he is not going to live very much longer. Patient is depressed at the severity of his medical illnesses. I offered antidepressant therapy which the patient states that he thinks will benefit him at this time. - Objective Vital Signs & Weight: Vital Signs (12 hours) Temp 10/31/19 08:00 98.2 F 10/31/19 04:00 98.4 F 10/31/19 00:00 98.7 F Weight Weight 189 lb 3.2 oz Most Recent Monitor Data Heart Rate from ECG 84 NIBP 139/80 NIBP BP-Mean 99 Respiration from ECG 18 SpO2 100 I&O: 10/30/19 10/31/19 11/01/19 06:59 06:59 06:59 Intake Total 14.6 1263.7 300 Output Total 1300 1135 60 Balance -1285.4 128.7 240 Result Diagrams: 10/31/19 07:25 10/31/19 07:25 Additional Labs: Accuchecks 10/31/19 10/30/19 10/30/19 06:30 21:20 17:27 POC Glucose 149 H 262 H 114 H 10/30/19 13:24 POC Glucose 206 H Radiology Reviewed by me: Yes Hospitalist ROS - Review of Systems All other systems reviewed; all pertinent +/- noted in HPI/Subj - Medication Medications: Active Medications Generic Name Dose Route Start Last Admin Trade Name Freq PRN Reason Stop Dose Admin Hydrocodone Bitart/Acetaminophen 1 tab 10/29/19 14:51 10/29/19 15:12 [place] 7.5/325 PO 1 tab Q4H PRN Administration Severe Pain (7-10) Albuterol/Ipratropium 3 ml 10/29/19 14:55 10/29/19 18:46 Duoneb NEB 3 ml Q4H PRN Administration SOB &/or Wheezing Aspirin 81 mg 10/30/19 09:00 10/31/19 09:05 Ecotrin PO 81 mg QAM NUBIA Administration Atorvastatin Calcium 20 mg 10/29/19 21:00 10/30/19 21:04 Lipitor PO 20 mg HS NUBIA Administration Carvedilol 3.125 mg 10/30/19 21:00 10/31/19 09:05 Coreg PO 3.125 mg BID NUBIA Administration Clopidogrel Bisulfate 75 mg 10/30/19 09:00 10/31/19 09:05 Plavix PO 75 mg DAILY NUBIA Administration Enoxaparin Sodium 90 mg 10/30/19 21:00 10/31/19 09:06 Lovenox SC 90 mg BID NUBIA Administration Famotidine 20 mg 10/31/19 09:00 10/31/19 09:15 Pepcid PO Not Given DAILY NUBIA Gabapentin 600 mg 10/29/19 21:00 10/31/19 09:05 Neurontin PO 600 mg BID NUBIA Administration Insulin Glargine 20 units/ 0.2 mls @ 1 mls/hr 10/29/19 21:00 10/31/19 09:06 Miscellaneous Medication SC 0.2 mls BID NUBIA Administration Insulin Human Lispro 0 units 10/29/19 14:49 10/30/19 13:22 Humalog SC 6 unit .AGGRESSIVE SLIDING PRN Administration Aggressive Correctional Scale Insulin Human Lispro 0 units 10/29/19 14:49 10/30/19 21:18 Humalog SC 3 unit .BEDTIME SLIDING SC PRN Administration Bedtime Correctional Scale Levothyroxine Sodium 50 mcg 10/30/19 06:00 10/31/19 06:11 Synthroid PO 50 mcg 0600 NUBIA Administration Morphine Sulfate 2 mg 10/29/19 14:56 10/29/19 16:30 Morphine SLOW IVP 2 mg Q4H PRN Administration Moderate to Severe Pain (6-10) Multivitamins 1 tab 10/30/19 09:00 10/31/19 09:06 Theragran PO 1 tab DAILY NUBIA Administration Ondansetron HCl 4 mg 10/29/19 14:51 10/30/19 04:42 Zofran IVP 4 mg Q6H PRN Administration Nausea/Vomiting Sodium Chloride 10 ml 10/30/19 21:00 10/31/19 09:24 Flush - Normal Saline IVF 10 ml Q12HR NUBIA Administration - Exam General Appearance: NAD, awake alert Eye: PERRL ENT: normocephalic atraumatic, moist mucosa Neck: supple, symmetric, no lymphadenopathy Heart: no murmur, no gallops, no rubs Respiratory: CTAB, no wheezes, no rales, no ronchi Gastrointestinal: soft, non-tender, no guarding, no rigidity Extremities: no edema Skin: no lesions, no rashes Neurological: cranial nerve grossly intact, no focal deficits Musculoskeletal: generalized weakness Musculoskeletal - other findings: Bilateral leg amputations Psychiatric: normal behavior, A&O x 3 Psychiatric - other findings: Depressed mood Hosp A/P (1) NSTEMI (non-ST elevated myocardial infarction) Code(s): I21.4 - NON-ST ELEVATION (NSTEMI) MYOCARDIAL INFARCTION Status: Acute (2) DM type 2, uncontrolled, with lower extremity ulcer Code(s): E11.622 - TYPE 2 DIABETES MELLITUS WITH OTHER SKIN ULCER; E11.65 - TYPE 2 DIABETES MELLITUS WITH HYPERGLYCEMIA; L97.909 - NON-PRS CHRONIC ULC UNSP PRT OF UNSP LOW LEG W UNSP SEVERITY Status: Acute (3) HLD (hyperlipidemia) Code(s): E78.5 - HYPERLIPIDEMIA, UNSPECIFIED Status: Acute (4) Debility Code(s): R53.81 - OTHER MALAISE Status: Acute (5) Acute CHF (congestive heart failure) Code(s): I50.9 - HEART FAILURE, UNSPECIFIED Status: Acute Qualifiers: Qualified Code(s): I50.21 - Acute systolic (congestive) heart failure (6) Anemia Code(s): D64.9 - ANEMIA, UNSPECIFIED Status: Acute Qualifiers: Anemia type: other cause Other causes of anemia: antineoplastic chemotherapy Qualified Code(s): D64.81 - Anemia due to antineoplastic chemotherapy (7) Cardiomyopathy Code(s): I42.9 - CARDIOMYOPATHY, UNSPECIFIED Status: Acute (8) Dyspnea Code(s): R06.00 - DYSPNEA, UNSPECIFIED Status: Acute (9) Volume overload Code(s): E87.70 - FLUID OVERLOAD, UNSPECIFIED Status: Acute (10) CAD (coronary artery disease) Code(s): I25.10 - ATHSCL HEART DISEASE OF [place] CORONARY ARTERY W/O ANG PCTRS Status: Chronic (11) HTN (hypertension) Code(s): I10 - ESSENTIAL (PRIMARY) HYPERTENSION Status: Chronic (12) Lung cancer Code(s): C34.90 - MALIGNANT NEOPLASM OF UNSP PART OF UNSP BRONCHUS OR LUNG Status: Chronic (13) PVD (peripheral vascular disease) Code(s): I73.9 - PERIPHERAL VASCULAR DISEASE, UNSPECIFIED Status: Chronic - Plan Plan: Intensive care unit cardiology consultation, recommendations appreciated pulmonology/critical-care consultation, recommendations appreciated excellent further plan of care per cardiology may require cardiac catheterization, though with extensive peripheral arterial disease and bypassing to the femoral arteries this may be difficult to impossible nitroglycerin per cardiology patient saturating well on low-flow nasal cannula long and short acting insulin for glucose control Hold Metformin, and oral diabetes medications in case patient receives contrast dye blood pressure control Continue home medications as able short and long-term prognosis for this patient remain guarded Disposition: unfortunately this patient does not yet understand the severe/ end- stage nature of his coronary artery disease and peripheral arterial disease that make it difficult to impossible to perform acute percutaneous intervention. Patient with severe global hypokinesis seen on echocardiogram with injection fraction of 15%. Maximal medical therapy at this time. After a period of time with maximal medical therapy the patient will need to repeat echocardiogram and may require an AICD.
--- NOTE | 2019-10-31 10:54 | PRG ---
DATE OF SERVICE: 10/31/2019 SERVICE: Pulmonary Medicine. INTERVAL HISTORY: The patient is doing okay from respiratory standpoint. Breathing comfortably. No complaints of chest discomfort, nausea, or vomiting currently. Overnight, he had 10 minutes episode of chest discomfort associated with him trying to get out of bed to the bathroom. Otherwise, there has been no interval change to his condition. PHYSICAL EXAMINATION: VITAL SIGNS: Afebrile; pulse 84; blood pressure 139/80; respirations 18; and saturation 100%, currently on 3 L nasal cannula. GENERAL: The patient is awake and alert, in no apparent distress. LUNGS: Decent air entry on the right. Decreased air entry on the left. There is a prolonged expiratory phase. Minimal wheezing today associated with crackling. HEART: Normal rate and regular. ABDOMEN: Soft, nontender, nondistended. Bowel sounds are positive. MUSCULOSKELETAL: No cyanosis or clubbing. No pitting in the bilateral lower extremities. NEUROLOGIC: Grossly nonfocal. LABORATORY DATA: WBC 7.0, hemoglobin 13.4, platelets 120,000 and gently up trending. INR 1.1. Creatinine 1.72 at baseline. Potassium 5.2. Basic metabolic profile is otherwise unremarkable. Blood sugar ranges from 149 to 262. Digoxin is below the assay limit of 0.15. IMAGING DATA: Chest x-ray demonstrates possible bilateral pleural effusion. Pulmonary vascular congestion is present. Sternotomy wires are noted. There is a right-sided subclavian central venous catheter in good position. ASSESSMENT: 1. Acute hypoxic respiratory failure. 2. [place]-AE-q[place] myocardial infarction. 3. Coronary artery disease, severe and nonoperable/not amenable to intervention. 4. History of left upper lobectomy for lung cancer. 5. Acute on chronic systolic, and valvular heart failure. 6. Severe mitral regurgitation. DISCUSSION AND PLAN: The patient is wheezing a little bit today. A couple of years ago, pulmonary function studies were consistent with minimal restrictive lung disease though there was possibly superimposed obstructive contour. We will schedule nebulized medication to see if this provides him with any benefit. We will continue to diurese him through time to euvolemia. He can be transitioned out of the ICU to the telemetry unit. Pulmonary/Critical Care will follow along for now. Job ID: [id number]
[2019-10-31] MEDS: Nitroglycerin 2% Ointment 1 INCH/1 GM Packet TOP SCH ×2 (13:08→21:39)
[2019-10-31] MEDS: Furosemide 40 MG/4 ML VIAL SLOW IVP SCH (13:11)
[2019-10-31] MEDS: HumaLOG 300 UNITS/3 ML VIAL SC PRN ×2 (13:18→18:50)
[2019-10-31] MEDS ORDERED: Furosemide 20 MG/2 ML VIAL SLOW IVP SCH (18:00)
[2019-10-31] MEDS: Atorvastatin Calcium 20 MG TAB PO SCH (20:49)
[2019-11-01 05:13] VITALS: BMI 30.5
[2019-11-01] MEDS: Levothyroxine Sodium 50 MCG TAB PO SCH (06:08)
[2019-11-01] MEDS: Nitroglycerin 2% Ointment 1 INCH/1 GM Packet TOP SCH (06:08)
[2019-11-01] MEDS: Furosemide 40 MG/4 ML VIAL SLOW IVP SCH (06:08)
[2019-11-01] MEDS ORDERED: Milk Of Magnesia 30 ML UDCUP PO PRN (08:27)
[2019-11-01] MEDS: Aspirin 81 mg Enteric Coated Tablet PO SCH (08:48)
[2019-11-01] MEDS: Carvedilol 3.125 MG TAB PO SCH ×2 (08:49→20:47)
[2019-11-01] MEDS: Famotidine 20 MG TAB PO SCH (08:50)
[2019-11-01] MEDS: Enoxaparin Sodium 100 MG/ML SYRINGE SC SCH ×2 (08:50→20:53)
[2019-11-01] MEDS: Clopidogrel Bisulfate 75 MG TAB PO SCH (08:50)
[2019-11-01] MEDS: Gabapentin 300 MG CAP PO SCH ×2 (08:50→20:47)
[2019-11-01] MEDS: Multivit, Therapeutic 1 TAB PO SCH (08:51)
[2019-11-01] MEDS: Insulin Glargine 20 UNITS in Pre-Filled Syringe 1 EACH SC SCH ×2 (08:51→20:48)
--- NOTE | 2019-11-01 09:14 | PRG ---
DATE OF SERVICE: 11/01/2019 SUBJECTIVE: Mr. Oswald is feeling better. He is actually sitting up in bed, not short of breath. OBJECTIVE: VITAL SIGNS: His blood pressure is 96/69, pulse is 80 and sinus. LUNGS: Clear. CARDIAC: Normal S1 and normal S2. ABDOMEN: Soft and nontender. EXTREMITIES: No edema. ASSESSMENT: 1. Congestive heart failure, systolic, acute, improving. 2. Relatively low blood pressure, stable. 3. Renal failure, stage 3. Creatinine 1.72. Potassium 5.2. PLAN: 1. He is on low-dose Coreg. 2. Change to oral diuretics. 3. He has some redness at the IV site and left antecubital fossa. We will have that removed. 4. Continue aspirin and carvedilol. Needs to be on a statin. We will check and see if he has been on one at home. Actually, he is on atorvastatin 20 mg a day, waiting telemetry bed. We will go ahead and order a cholesterol tomorrow and I will see his cholesterol level. Job ID: [id number]
[2019-11-01] MEDS: HumaLOG 300 UNITS/3 ML VIAL SC PRN (11:02)
[2019-11-01 11:22] LABS: Albumin 3.6 g/dL (3.4-4.8); Anion Gap 20 mmol/L (10-20); BUN (Urea Nitrogen) 55 mg/dL (8.4-25.7); BUN/Creatinine Ratio 32.74; Calc. Creatinine Clearance 48 mL/min (70-130); Carbon Dioxide 17 mmol/L (23-31); Chloride 102 mmol/L (98-107); Estimated GFR-MDRD 40; Glucose 211 mg/dL (83-110); Phosphorus 3.1 mg/dL (2.3-4.7); Potassium 5.2 mmol/L (3.5-5.1); Sodium 134 mmol/L (136-145)
[2019-11-01] MEDS: Torsemide 20 MG TAB PO SCH (13:34)
[2019-11-01] MEDS ORDERED: Furosemide 20 MG/2 ML VIAL SLOW IVP SCH (14:00)
--- NOTE | 2019-11-01 14:44 | PRG ---
DATE OF SERVICE: 11/01/2019 SERVICE: Pulmonary Medicine. INTERVAL HISTORY: The patient is doing fine from respiratory standpoint. He remains on 2 L nasal cannula. He denies any current chest discomfort. He did not have any events overnight. Otherwise, there has been no interval change to his condition. PHYSICAL EXAMINATION: VITAL SIGNS: Afebrile, pulse 77, blood pressure 128/79, respirations 17, and saturation 100% currently on 2 L nasal cannula. GENERAL: The patient is awake and alert, in no apparent distress. LUNGS: Reduced air entry with a prolonged expiratory phase. There is decreased air entry on the left side compared to the right. No crackles are appreciated today. HEART: Normal rate and regular. ABDOMEN: Soft, nontender, and nondistended. Bowel sounds are positive. MUSCULOSKELETAL: No cyanosis or clubbing. There is no pitting in the bilateral lower extremities. They are both surgically absent below the knees. NEUROLOGIC: Grossly nonfocal. LABORATORY DATA: Sodium 134, potassium 5.2, and creatinine 1.68. Basic metabolic profile and phosphorus are otherwise unremarkable. ASSESSMENT: 1. Acute hypoxic respiratory failure. 2. [id number] myocardial infarction. 3. Coronary artery disease, severe and nonoperable/not amenable to intervention. 4. History of left upper lobectomy for lung cancer. 5. Acute on chronic systolic and valvular heart failure. 6. Severe mitral regurgitation. DISCUSSION AND PLAN: The patient is doing great from respiratory standpoint. At this point, he has no further requirements for inpatient Pulmonary or Critical Care opinion. He is stable for transition to the telemetry unit. Once he arrives there, I will sign off. We will continue to wean oxygen away as tolerated. Please call with additional questions or concerns through time. Job ID: [id number]
--- NOTE | 2019-11-01 19:42 | PDOC.HOSPP ---
- Subjective Encounter Date: 11/01/19 Encounter Time: 13:10 Subjective: 74 y/o male with DM complicated with PAD s/p bilaterally BKA, CAD s/p CABG, CKD 3 amongst others admitted with worsening SOB and chest pain. Found to have abnormal ECG associated with elevated troponin consistent with NSTEMI. Also had CHF exacerbation. Treated with antithrombotoc therapys and diuretic with improvement. Chest pain and SOB have subsided. - Objective Vital Signs & Weight: Vital Signs (12 hours) Temp Pulse Ox 11/01/19 16:00 98.4 F 11/01/19 12:00 97.6 F 11/01/19 08:00 98.5 F 97 Weight Weight 194 lb 7.163 oz Most Recent Monitor Data Heart Rate from ECG 80 NIBP 121/69 NIBP BP-Mean 86 Respiration from ECG 21 SpO2 98 I&O: 10/31/19 11/01/19 11/02/19 06:59 06:59 06:59 Intake Total 1263.7 660 1450 Output Total 1135 1480 1270 Balance 128.7 -820 180 Result Diagrams: 10/31/19 07:25 11/01/19 10:52 Additional Labs: Accuchecks 11/01/19 11/01/19 11/01/19 16:46 11:03 06:09 POC Glucose 144 H 198 H 96 10/31/19 10/31/19 20:51 16:40 POC Glucose 216 H 164 H Hospitalist ROS - Medication Medications: Active Medications Generic Name Dose Route Start Last Admin Trade Name Freq PRN Reason Stop Dose Admin Albuterol/Ipratropium 3 ml 10/29/19 14:55 10/29/19 18:46 Duoneb NEB 3 ml Q4H PRN Administration SOB &/or Wheezing Aspirin 81 mg 10/30/19 09:00 11/01/19 08:48 Ecotrin PO 81 mg QAM NUBIA Administration Atorvastatin Calcium 20 mg 10/29/19 21:00 10/31/19 20:49 Lipitor PO 20 mg HS NUBIA Administration Bisacodyl 10 mg 10/29/19 14:51 11/01/19 08:58 Dulcolax PO 10 mg DAILYPRN PRN Administration Constipation Carvedilol 3.125 mg 10/30/19 21:00 11/01/19 08:49 Coreg PO 3.125 mg BID NUBIA Administration Clopidogrel Bisulfate 75 mg 10/30/19 09:00 11/01/19 08:50 Plavix PO 75 mg DAILY NUBIA Administration Enoxaparin Sodium 90 mg 10/30/19 21:00 11/01/19 08:50 Lovenox SC 90 mg BID NUBIA Administration Famotidine 20 mg 10/31/19 09:00 11/01/19 08:50 Pepcid PO 20 mg DAILY NUBIA Administration Gabapentin 600 mg 10/29/19 21:00 11/01/19 08:50 Neurontin PO 600 mg BID NUBIA Administration Insulin Glargine 20 units/ 0.2 mls @ 1 mls/hr 10/29/19 21:00 11/01/19 08:51 Miscellaneous Medication SC 0.2 mls BID NUBIA Administration Insulin Human Lispro 0 units 10/29/19 14:49 11/01/19 11:02 Humalog SC 3 unit .AGGRESSIVE SLIDING PRN Administration Aggressive Correctional Scale Insulin Human Lispro 0 units 10/29/19 14:49 10/30/19 21:18 Humalog SC 3 unit .BEDTIME SLIDING SC PRN Administration Bedtime Correctional Scale Levothyroxine Sodium 50 mcg 10/30/19 06:00 11/01/19 06:08 Synthroid PO 50 mcg 0600 NUBIA Administration Morphine Sulfate 2 mg 10/29/19 14:56 10/29/19 16:30 Morphine SLOW IVP 2 mg Q4H PRN Administration Moderate to Severe Pain (6-10) Multivitamins 1 tab 10/30/19 09:00 11/01/19 08:51 Theragran PO 1 tab DAILY NUBIA Administration Ondansetron HCl 4 mg 10/29/19 14:51 10/30/19 04:42 Zofran IVP 4 mg Q6H PRN Administration Nausea/Vomiting Sertraline HCl 25 mg 11/01/19 09:00 11/01/19 08:53 Zoloft PO 25 mg DAILY NUBIA Administration Sodium Chloride 10 ml 10/30/19 21:00 11/01/19 08:59 Flush - Normal Saline IVF 10 ml Q12HR NUBIA Administration Torsemide 20 mg 11/01/19 14:00 11/01/19 13:34 Demadex PO 20 mg BID@0900,1400 NUBIA Administration - Exam General Appearance: awake alert Eye: anicteric sclera ENT: normocephalic atraumatic Neck: symmetric, no JVD Heart: RRR Respiratory: no wheezes, no rales, no ronchi, normal chest expansion Gastrointestinal: soft, non-tender, non-distended, normal bowel sounds Extremities: no cyanosis, no edema Extremities - other findings: bilateral BKA noted Neurological: cranial nerve grossly intact, no focal deficits Psychiatric: A&O x 3 Hosp A/P (1) NSTEMI (non-ST elevated myocardial infarction) Code(s): I21.4 - NON-ST ELEVATION (NSTEMI) MYOCARDIAL INFARCTION Status: Acute (2) Acute on chronic systolic (congestive) heart failure Code(s): I50.23 - ACUTE ON CHRONIC SYSTOLIC (CONGESTIVE) HEART FAILURE Status : Acute (3) CKD (chronic kidney disease) stage 3, GFR 30-59 ml/min Code(s): N18.3 - CHRONIC KIDNEY DISEASE, STAGE 3 (MODERATE) Status: Acute (4) Severe mitral regurgitation Code(s): I34.0 - NONRHEUMATIC MITRAL (VALVE) INSUFFICIENCY Status: Acute (5) Ischemic cardiomyopathy Code(s): I25.5 - ISCHEMIC CARDIOMYOPATHY Status: Acute (6) DM type 2, uncontrolled, with lower extremity ulcer Code(s): E11.622 - TYPE 2 DIABETES MELLITUS WITH OTHER SKIN ULCER; E11.65 - TYPE 2 DIABETES MELLITUS WITH HYPERGLYCEMIA; L97.909 - NON-PRS CHRONIC ULC UNSP PRT OF UNSP LOW LEG W UNSP SEVERITY Status: Acute (7) CAD (coronary artery disease) Code(s): I25.10 - ATHSCL HEART DISEASE OF [place] CORONARY ARTERY W/O ANG PCTRS Status: Chronic (8) HTN (hypertension) Code(s): I10 - ESSENTIAL (PRIMARY) HYPERTENSION Status: Chronic (9) PVD (peripheral vascular disease) Code(s): I73.9 - PERIPHERAL VASCULAR DISEASE, UNSPECIFIED Status: Chronic (10) Hyperkalemia Code(s): E87.5 - HYPERKALEMIA Status: Acute (11) Metabolic acidosis Code(s): E87.2 - ACIDOSIS Status: Acute - Plan Continue antithrombotic therapy Start alkali therapy for worsening metabolic acidosis and mild hyperkalemia repeat RFT in the am.
[2019-11-01] MEDS ORDERED: Sodium Bicarbonate Tab 325 MG TAB PO SCH (19:45)
[2019-11-01] MEDS: Sodium Bicarbonate Tab 325 MG TAB PO SCH (20:47)
[2019-11-01] MEDS: Atorvastatin Calcium 20 MG TAB PO SCH (20:47)
[2019-11-02 03:54] LABS: Albumin 3.3 g/dL (3.4-4.8); Anion Gap 18 mmol/L (10-20); BUN (Urea Nitrogen) 53 mg/dL (8.4-25.7); BUN/Creatinine Ratio 35.57; Calc. Creatinine Clearance 54 mL/min (70-130); Carbon Dioxide 18 mmol/L (23-31); Chloride 106 mmol/L (98-107); Cholesterol 106 mg/dl (< 200 Desired); Estimated GFR-MDRD 46; Glucose 103 mg/dL (83-110); HDL Cholesterol 21 mg/dL (>60 Neg Risk); LDL Cholesterol, Calculated 65 mg/dL; Phosphorus 2.5 mg/dL (2.3-4.7); Potassium 4.4 mmol/L (3.5-5.1); Sodium 138 mmol/L (136-145); Triglycerides 102 mg/dL (Less than 150)
[2019-11-02] MEDS: Levothyroxine Sodium 50 MCG TAB PO SCH (05:34)
[2019-11-02] MEDS: Carvedilol 3.125 MG TAB PO SCH (09:32)
[2019-11-02] MEDS: Multivit, Therapeutic 1 TAB PO SCH (09:32)
[2019-11-02] MEDS: Torsemide 20 MG TAB PO SCH ×2 (09:32→14:22)
[2019-11-02] MEDS: Famotidine 20 MG TAB PO SCH (09:32)
[2019-11-02] MEDS: Sodium Bicarbonate Tab 325 MG TAB PO SCH (09:32)
[2019-11-02] MEDS: Clopidogrel Bisulfate 75 MG TAB PO SCH (09:32)
[2019-11-02] MEDS: Aspirin 81 mg Enteric Coated Tablet PO SCH (09:32)
[2019-11-02] MEDS: Gabapentin 300 MG CAP PO SCH ×2 (09:33→21:28)
[2019-11-02] MEDS: Insulin Glargine 20 UNITS in Pre-Filled Syringe 1 EACH SC SCH ×2 (09:33→22:02)
[2019-11-02] MEDS: Enoxaparin Sodium 100 MG/ML SYRINGE SC SCH (09:40)
[2019-11-02] MEDS: HumaLOG 300 UNITS/3 ML VIAL SC PRN ×2 (12:09→16:23)
--- NOTE | 2019-11-02 13:41 | PRG ---
DATE OF SERVICE: 11/02/2019 SUBJECTIVE: Mr. Oswald is doing better. His breathing is improved. His oxygen saturation still drops when he gets up. OBJECTIVE: VITAL SIGNS: Blood pressure 132/74, it is improved. Pulse is 80. LUNGS: Clear. CARDIAC: Normal S1, normal S2. ABDOMEN: Soft, nontender. ASSESSMENT: 1. Congestive heart failure. 2. Status post myocardial infarction, [id number] myocardial infarction. 3. Mitral regurgitation. PLAN: 1. We will reduce enoxaparin dose. 2. Increase carvedilol. 3. I would stop the sodium bicarb with this degree of heart failure. I do not think the sodium load will be able to be tolerated. 4. Continue torsemide. 5. Awaiting bed on telemetry floor. 6. We will start low-dose lisinopril and watch kidney function carefully. Start this tomorrow morning. Job ID: [id number]
[2019-11-02] MEDS: Acetaminophen 325 MG TAB PO PRN (16:23)
--- NOTE | 2019-11-02 21:05 | PDOC.HOSPP ---
- Subjective Subjective: He reports being sob on minimal exertion. - Objective Vital Signs & Weight: Vital Signs (12 hours) Temp 11/02/19 16:00 97.7 F 11/02/19 12:00 98.5 F Weight Weight 197 lb 12.074 oz Most Recent Monitor Data Heart Rate from ECG 80 NIBP 104/55 NIBP BP-Mean 71 Respiration from ECG 16 SpO2 98 I&O: 11/01/19 11/02/19 11/03/19 06:59 06:59 06:59 Intake Total 660 1450 Output Total 1480 2220 1674 Balance -561 -166 -8217 Result Diagrams: 10/31/19 07:25 11/02/19 03:29 Additional Labs: Accuchecks 11/02/19 11/02/19 11/02/19 20:46 16:24 12:10 POC Glucose 240 H 166 H 163 H 11/02/19 11/01/19 05:36 20:48 POC Glucose 84 180 H Hospitalist ROS - Medication Medications: Active Medications Generic Name Dose Route Start Last Admin Trade Name Freq PRN Reason Stop Dose Admin Acetaminophen 650 mg 10/29/19 14:51 11/02/19 16:23 Tylenol PO 650 mg Q4H PRN Administration Headache/Fever/Mild Pain (1-3) Albuterol/Ipratropium 3 ml 10/29/19 14:55 10/29/19 18:46 Duoneb NEB 3 ml Q4H PRN Administration SOB &/or Wheezing Aspirin 81 mg 10/30/19 09:00 11/02/19 09:32 Ecotrin PO 81 mg QAM NUBIA Administration Atorvastatin Calcium 20 mg 10/29/19 21:00 11/01/19 20:47 Lipitor PO 20 mg HS NUBIA Administration Bisacodyl 10 mg 10/29/19 14:51 11/01/19 08:58 Dulcolax PO 10 mg DAILYPRN PRN Administration Constipation Clopidogrel Bisulfate 75 mg 10/30/19 09:00 11/02/19 09:32 Plavix PO 75 mg DAILY NUBIA Administration Famotidine 20 mg 10/31/19 09:00 11/02/19 09:32 Pepcid PO 20 mg DAILY NUBIA Administration Gabapentin 600 mg 10/29/19 21:00 11/02/19 09:33 Neurontin PO 600 mg BID NUBIA Administration Insulin Glargine 20 units/ 0.2 mls @ 1 mls/hr 10/29/19 21:00 11/02/19 09:33 Miscellaneous Medication SC 0.2 mls BID NUBIA Administration Insulin Human Lispro 0 units 10/29/19 14:49 11/02/19 16:23 Humalog SC 3 unit .AGGRESSIVE SLIDING PRN Administration Aggressive Correctional Scale Insulin Human Lispro 0 units 10/29/19 14:49 10/30/19 21:18 Humalog SC 3 unit .BEDTIME SLIDING SC PRN Administration Bedtime Correctional Scale Levothyroxine Sodium 50 mcg 10/30/19 06:00 11/02/19 05:34 Synthroid PO 50 mcg 0600 NUBIA Administration Morphine Sulfate 2 mg 10/29/19 14:56 10/29/19 16:30 Morphine SLOW IVP 2 mg Q4H PRN Administration Moderate to Severe Pain (6-10) Multivitamins 1 tab 10/30/19 09:00 11/02/19 09:32 Theragran PO 1 tab DAILY NUBIA Administration Ondansetron HCl 4 mg 10/29/19 14:51 10/30/19 04:42 Zofran IVP 4 mg Q6H PRN Administration Nausea/Vomiting Sertraline HCl 25 mg 11/01/19 09:00 11/02/19 09:32 Zoloft PO 25 mg DAILY NUBIA Administration Sodium Chloride 10 ml 10/30/19 21:00 11/02/19 09:38 Flush - Normal Saline IVF 10 ml Q12HR NUBIA Administration Torsemide 20 mg 11/01/19 14:00 11/02/19 14:22 Demadex PO 20 mg BID@0900,1400 NUBIA Administration - Exam Eye: PERRL ENT: normocephalic atraumatic Heart: RRR Respiratory: normal chest expansion (decreased air entry on the right side ( he has a history of lobectomy )) Gastrointestinal: soft, non-tender Extremities: no cyanosis Hosp A/P - Plan (1) NSTEMI (non-ST elevated myocardial infarction) Code(s): I21.4 - NON-ST ELEVATION (NSTEMI) MYOCARDIAL INFARCTION Status: Acute (2) Acute on chronic systolic (congestive) heart failure Code(s): I50.23 - ACUTE ON CHRONIC SYSTOLIC (CONGESTIVE) HEART FAILURE Status : Acute (3) CKD (chronic kidney disease) stage 3, GFR 30-59 ml/min Code(s): N18.3 - CHRONIC KIDNEY DISEASE, STAGE 3 (MODERATE) Status: Acute (4) Severe mitral regurgitation Code(s): I34.0 - NONRHEUMATIC MITRAL (VALVE) INSUFFICIENCY Status: Acute (5) Ischemic cardiomyopathy Code(s): I25.5 - ISCHEMIC CARDIOMYOPATHY Status: Acute (6) DM type 2, uncontrolled, with lower extremity ulcer Code(s): E11.622 - TYPE 2 DIABETES MELLITUS WITH OTHER SKIN ULCER; E11.65 - TYPE 2 DIABETES MELLITUS WITH HYPERGLYCEMIA; L97.909 - NON-PRS CHRONIC ULC UNSP PRT OF UNSP LOW LEG W UNSP SEVERITY Status: Acute (7) CAD (coronary artery disease) Code(s): I25.10 - ATHSCL HEART DISEASE OF [place] CORONARY ARTERY W/O ANG PCTRS Status: Chronic (8) HTN (hypertension) Code(s): I10 - ESSENTIAL (PRIMARY) HYPERTENSION Status: Chronic (9) PVD (peripheral vascular disease) Code(s): I73.9 - PERIPHERAL VASCULAR DISEASE, UNSPECIFIED Status: Chronic (10) Hyperkalemia Code(s): E87.5 - HYPERKALEMIA Status: Acute (11) Metabolic acidosis Code(s): E87.2 - ACIDOSIS Status: Acute - Plan 11/01 Continue antithrombotic therapy Start alkali therapy for worsening metabolic acidosis and mild hyperkalemia repeat RFT in the am. 11/02 sodium bicarb stopped torsemide continued PT ordered pox with sleep as we suspect he has SERG pox with exertion as we suspect that he might need [facility]pc oxygen considering ordering a CXR
[2019-11-02] MEDS: Enoxaparin Sodium 40 MG/0.4 ML SYRINGE SC SCH (21:28)
[2019-11-02] MEDS: Atorvastatin Calcium 20 MG TAB PO SCH (21:28)
[2019-11-03 04:06] LABS: #Eosinphils 0.1 thou/uL (0.0-0.7); #Lymphocytes 1.5 thou/uL (1.20-3.40); #Monocytes 1.1 thou/uL (0.11-0.59); #Neutrophils 8.1 thou/uL (1.40-6.50); %Basophils 0.2 % (0.0-1.0); %Eosinophils 0.8 % (0.0-10.0); %Lymphocytes 13.7 % (21.0-51.0); %Monocytes 10.2 % (0.0-10.0); %Neutrophils 75.1 % (42.0-75.0); Hemoglobin 12.7 g/dL (14.0-18.0); Mean Corpuscular HGB CONC 33.6 g/dL (32.0-36.0); Mean Corpuscular Hemoglobin 28.9 pg (27.0-31.0); Mean Corpuscular Volume 86.2 fL (78.0-98.0); Mean Platelet Volume 11.8 fL (7.4-10.4); Platelet Count 132 thou/uL (130-400); RBC Distribution Width 15.4 % (11.5-14.5); Red Blood Cell (RBC) Count 4.38 mill/uL (4.70-6.10); White Blood Cell (WBC) Count 10.8 thou/uL (4.8-10.8)
[2019-11-03 04:26] LABS: Anion Gap 14 mmol/L (10-20); BUN (Urea Nitrogen) 50 mg/dL (8.4-25.7); Calc. Creatinine Clearance 58 mL/min (70-130); Calcium 8.2 mg/dL (7.8-10.44); Carbon Dioxide 26 mmol/L (23-31); Chloride 102 mmol/L (98-107); Estimated GFR-MDRD 48; Glucose 131 mg/dL (83-110); Potassium 3.9 mmol/L (3.5-5.1); Sodium 138 mmol/L (136-145)
[2019-11-03] MEDS: Levothyroxine Sodium 50 MCG TAB PO SCH (05:11)
--- NOTE | 2019-11-03 08:24 | RAD ---
Portable frontal chest radiograph: 11/03/2019 COMPARISON: 10/31/2019 HISTORY: Shortness of breath FINDINGS: Stable CT injectable right-sided Port-A-Cath. Blunting of right costophrenic angle suggests a stable right pleural effusion. Focal masslike opacity noted in the left perihilar region which may signify left hilar mass or left hilar adenopathy, a stable finding. There is hazy nonspecific inc reased pleural and parenchymal density within the left lung base which appears similar when compared to the 10/31/2019 examination. Incompletely imaged cervical spine hardware present. IMPRESSION: Stable appearance of the chest as detailed above.
[2019-11-03] MEDS ORDERED: Lisinopril 2.5 MG TAB PO SCH (09:00)
[2019-11-03] MEDS: Famotidine 20 MG TAB PO SCH (09:22)
[2019-11-03] MEDS: Clopidogrel Bisulfate 75 MG TAB PO SCH (09:22)
[2019-11-03] MEDS: Gabapentin 300 MG CAP PO SCH ×2 (09:22→21:16)
[2019-11-03] MEDS: Aspirin 81 mg Enteric Coated Tablet PO SCH (09:22)
[2019-11-03] MEDS: Multivit, Therapeutic 1 TAB PO SCH (09:22)
[2019-11-03] MEDS: Insulin Glargine 20 UNITS in Pre-Filled Syringe 1 EACH SC SCH ×2 (09:23→21:18)
[2019-11-03] MEDS: Enoxaparin Sodium 40 MG/0.4 ML SYRINGE SC SCH ×2 (09:23→21:16)
[2019-11-03] MEDS: Torsemide 20 MG TAB PO SCH ×2 (09:31→15:23)
--- NOTE | 2019-11-03 10:30 | PRG ---
DATE OF SERVICE: 11/03/2019 SUBJECTIVE: Mr. Oswald is doing well. He feels better, not having chest pain or pressure. OBJECTIVE: VITAL SIGNS: His blood pressure has improved, blood pressure 127/69; pulse 83 and regular. LUNGS: Clear. CARDIAC: Normal S1 and normal S2. ABDOMEN: Soft and nontender. EXTREMITIES: Bilateral below-knee amputations. ASSESSMENT: 1. Congestive heart failure, systolic, acute, improved. 2. Severely depressed left ventricular function. 3. Status post non-ST elevation myocardial infarction. 4. Echocardiogram showed the ejection fraction to be 15% to 20%. PLAN: 1. Order LifeVest. 2. Increase carvedilol. 3. Lisinopril started today. 4. Probably home on Friday. Job ID: [id number]
[2019-11-03] MEDS: HumaLOG 300 UNITS/3 ML VIAL SC PRN (13:06)
--- NOTE | 2019-11-03 13:57 | PDOC.HOSPP ---
- Subjective Subjective: feels better today, he was eating his lunch. - Objective Vital Signs & Weight: Vital Signs (12 hours) Temp Pulse Pulse Resp BP BP BP 11/03/19 12:00 98.0 F 84 18 11/03/19 10:38 88 129/78 116/58 L 11/03/19 09:23 11/03/19 07:48 98.0 F 83 16 11/03/19 04:12 97.7 F 81 23 H 130/66 BP Pulse Ox Pulse Ox 11/03/19 12:00 109/58 L 98 11/03/19 10:38 97 11/03/19 09:23 95 11/03/19 07:48 127/69 95 11/03/19 04:12 100 Weight Weight 197 lb 11.2 oz Most Recent Monitor Data Heart Rate from ECG 80 NIBP 104/55 NIBP BP-Mean 71 Respiration from ECG 16 SpO2 98 I&O: 11/02/19 11/03/19 11/04/19 06:59 06:59 06:59 Intake Total 1450 400 Output Total 2220 2525 Balance -770 -2125 Result Diagrams: 11/03/19 03:59 11/03/19 03:59 Additional Labs: Accuchecks 11/03/19 11/03/19 11/02/19 10:32 05:37 20:46 POC Glucose 160 H 129 H 240 H 11/02/19 16:24 POC Glucose 166 H Hospitalist ROS - Medication Medications: Active Medications Generic Name Dose Route Start Last Admin Trade Name Freq PRN Reason Stop Dose Admin Acetaminophen 650 mg 10/29/19 14:51 11/02/19 16:23 Tylenol PO 650 mg Q4H PRN Administration Headache/Fever/Mild Pain (1-3) Albuterol/Ipratropium 3 ml 10/29/19 14:55 10/29/19 18:46 Duoneb NEB 3 ml Q4H PRN Administration SOB &/or Wheezing Aspirin 81 mg 10/30/19 09:00 11/03/19 09:22 Ecotrin PO 81 mg QAM NUBIA Administration Atorvastatin Calcium 20 mg 10/29/19 21:00 11/02/19 21:28 Lipitor PO 20 mg HS NUBIA Administration Bisacodyl 10 mg 10/29/19 14:51 11/01/19 08:58 Dulcolax PO 10 mg DAILYPRN PRN Administration Constipation Clopidogrel Bisulfate 75 mg 10/30/19 09:00 11/03/19 09:22 Plavix PO 75 mg DAILY NUBIA Administration Enoxaparin Sodium 40 mg 11/02/19 21:00 11/03/19 09:23 Lovenox SC 40 mg BID NUBIA Administration Famotidine 20 mg 10/31/19 09:00 11/03/19 09:22 Pepcid PO 20 mg DAILY NUBIA Administration Gabapentin 600 mg 10/29/19 21:00 11/03/19 09:22 Neurontin PO 600 mg BID NUBIA Administration Insulin Glargine 20 units/ 0.2 mls @ 1 mls/hr 10/29/19 21:00 11/03/19 09:23 Miscellaneous Medication SC 0.2 mls BID NUBIA Administration Insulin Human Lispro 0 units 10/29/19 14:49 11/03/19 13:06 Humalog SC 3 unit .AGGRESSIVE SLIDING PRN Administration Aggressive Correctional Scale Insulin Human Lispro 0 units 10/29/19 14:49 10/30/19 21:18 Humalog SC 3 unit .BEDTIME SLIDING SC PRN Administration Bedtime Correctional Scale Levothyroxine Sodium 50 mcg 10/30/19 06:00 11/03/19 05:11 Synthroid PO 50 mcg 0600 NUBIA Administration Lisinopril 2.5 mg 11/03/19 09:00 11/03/19 09:22 Zestril PO 2.5 mg DAILY NUBIA Administration Morphine Sulfate 2 mg 10/29/19 14:56 10/29/19 16:30 Morphine SLOW IVP 2 mg Q4H PRN Administration Moderate to Severe Pain (6-10) Multivitamins 1 tab 10/30/19 09:00 11/03/19 09:22 Theragran PO 1 tab DAILY NUBIA Administration Ondansetron HCl 4 mg 10/29/19 14:51 10/30/19 04:42 Zofran IVP 4 mg Q6H PRN Administration Nausea/Vomiting Sertraline HCl 25 mg 11/01/19 09:00 11/03/19 09:22 Zoloft PO 25 mg DAILY NUBIA Administration Sodium Chloride 10 ml 10/30/19 21:00 11/03/19 09:24 Flush - Normal Saline IVF 10 ml Q12HR NUBIA Administration Torsemide 20 mg 11/01/19 14:00 11/03/19 09:31 Demadex PO 20 mg BID@0900,1400 NUBIA Administration - Exam General Appearance: NAD Eye: PERRL Neck: supple Heart: RRR Respiratory: no wheezes (more air entry today) Hosp A/P - Plan (1) NSTEMI (non-ST elevated myocardial infarction) Code(s): I21.4 - NON-ST ELEVATION (NSTEMI) MYOCARDIAL INFARCTION Status: Acute (2) Acute on chronic systolic (congestive) heart failure Code(s): I50.23 - ACUTE ON CHRONIC SYSTOLIC (CONGESTIVE) HEART FAILURE Status : Acute (3) CKD (chronic kidney disease) stage 3, GFR 30-59 ml/min Code(s): N18.3 - CHRONIC KIDNEY DISEASE, STAGE 3 (MODERATE) Status: Acute (4) Severe mitral regurgitation Code(s): I34.0 - NONRHEUMATIC MITRAL (VALVE) INSUFFICIENCY Status: Acute (5) Ischemic cardiomyopathy Code(s): I25.5 - ISCHEMIC CARDIOMYOPATHY Status: Acute (6) DM type 2, uncontrolled, with lower extremity ulcer Code(s): E11.622 - TYPE 2 DIABETES MELLITUS WITH OTHER SKIN ULCER; E11.65 - TYPE 2 DIABETES MELLITUS WITH HYPERGLYCEMIA; L97.909 - NON-PRS CHRONIC ULC UNSP PRT OF UNSP LOW LEG W UNSP SEVERITY Status: Acute (7) CAD (coronary artery disease) Code(s): I25.10 - ATHSCL HEART DISEASE OF [place] CORONARY ARTERY W/O ANG PCTRS Status: Chronic (8) HTN (hypertension) Code(s): I10 - ESSENTIAL (PRIMARY) HYPERTENSION Status: Chronic (9) PVD (peripheral vascular disease) Code(s): I73.9 - PERIPHERAL VASCULAR DISEASE, UNSPECIFIED Status: Chronic (10) Hyperkalemia Code(s): E87.5 - HYPERKALEMIA Status: Acute (11) Metabolic acidosis Code(s): E87.2 - ACIDOSIS Status: Acute - Plan 11/01 Continue antithrombotic therapy Start alkali therapy for worsening metabolic acidosis and mild hyperkalemia repeat RFT in the am. plan for 11/02 sodium bicarb stopped torsemide continued PT ordered pox with sleep as we suspect he has SERG pox with exertion as we suspect that he might need prison oxygen considering ordering a CXR plan for 11/03 seems to be doing better life vest ordered coreg increased started on lisinopril he most likely will need prison oxygen supplementation.
--- NOTE | 2019-11-03 19:38 | PDOC.EVN ---
Event Note - Event Note Event Note: I was called by RN about patient having a low BP and feeling lightheaded but with no chest pain or sob. I went to the bedside to evaluate and he is diaphoretic but noting some improvement of his lightheadedness. recheck BP with a doppler is SBP of 70 mmhg. we are in the process of doing EKG, I am redrawing stat labs on him, and [place] [facility] [place] I am stopping his BP meds for now.
[2019-11-03 19:51] LABS: #Lymphocytes 1.3 thou/uL (1.20-3.40); #Monocytes 1.3 thou/uL (0.11-0.59); #Neutrophils 11.4 thou/uL (1.40-6.50); %Basophils 0.1 % (0.0-1.0); %Eosinophils 0.1 % (0.0-10.0); %Lymphocytes 9.4 % (21.0-51.0); %Monocytes 9.5 % (0.0-10.0); %Neutrophils 80.9 % (42.0-75.0); Hemoglobin 11.8 g/dL (14.0-18.0); Mean Corpuscular HGB CONC 33.3 g/dL (32.0-36.0); Mean Corpuscular Hemoglobin 28.9 pg (27.0-31.0); Mean Corpuscular Volume 86.7 fL (78.0-98.0); Mean Platelet Volume 11.6 fL (7.4-10.4); Platelet Count 133 thou/uL (130-400); RBC Distribution Width 15.5 % (11.5-14.5); Red Blood Cell (RBC) Count 4.07 mill/uL (4.70-6.10); White Blood Cell (WBC) Count 14.1 thou/uL (4.8-10.8)
[2019-11-03 20:02] LABS: Anion Gap 15 mmol/L (10-20); BUN (Urea Nitrogen) 49 mg/dL (8.4-25.7); Calc. Creatinine Clearance 47 mL/min (70-130); Calcium 7.9 mg/dL (7.8-10.44); Carbon Dioxide 25 mmol/L (23-31); Chloride 98 mmol/L (98-107); Estimated GFR-MDRD 38; Glucose 148 mg/dL (83-110); Sodium 134 mmol/L (136-145)
[2019-11-03 20:30] LABS: CKMB 1.6 ng/mL (0-6.6)
[2019-11-03] MEDS ORDERED: Carvedilol 3.125 MG TAB PO SCH ×2 (21:00)
[2019-11-03] MEDS: Atorvastatin Calcium 20 MG TAB PO SCH (21:16)
[2019-11-04 05:37] LABS: #Eosinphils 0.1 thou/uL (0.0-0.7); #Lymphocytes 1.4 thou/uL (1.20-3.40); #Neutrophils 9.8 thou/uL (1.40-6.50); %Basophils 0.3 % (0.0-1.0); %Eosinophils 0.4 % (0.0-10.0); %Lymphocytes 11.1 % (21.0-51.0); %Monocytes 7.9 % (0.0-10.0); %Neutrophils 80.3 % (42.0-75.0); Hemoglobin 12.4 g/dL (14.0-18.0); Mean Corpuscular HGB CONC 33.2 g/dL (32.0-36.0); Mean Corpuscular Hemoglobin 28.8 pg (27.0-31.0); Mean Corpuscular Volume 86.6 fL (78.0-98.0); Mean Platelet Volume 11.4 fL (7.4-10.4); Platelet Count 139 thou/uL (130-400); RBC Distribution Width 15.8 % (11.5-14.5); Red Blood Cell (RBC) Count 4.32 mill/uL (4.70-6.10); White Blood Cell (WBC) Count 12.2 thou/uL (4.8-10.8)
[2019-11-04] MEDS: Levothyroxine Sodium 50 MCG TAB PO SCH (05:45)
[2019-11-04 05:55] LABS: Anion Gap 15 mmol/L (10-20); BUN (Urea Nitrogen) 51 mg/dL (8.4-25.7); Calc. Creatinine Clearance 56 mL/min (70-130); Calcium 8.4 mg/dL (7.8-10.44); Carbon Dioxide 26 mmol/L (23-31); Chloride 100 mmol/L (98-107); Estimated GFR-MDRD 49; Glucose 85 mg/dL (83-110); Potassium 3.7 mmol/L (3.5-5.1); Sodium 137 mmol/L (136-145)
--- NOTE | 2019-11-04 08:52 | PRG ---
DATE OF SERVICE: 11/04/2019 SUBJECTIVE: Mr. Oswadl had an episode of hypotension yesterday with diaphoresis. He said he did not feel bad, but his pressure is in the 70s. He is transferred to the intermediate care unit. Says he feels well today. No chest pain or pressure. OBJECTIVE: VITAL SIGNS: His blood pressure is 115/63, pulse is 80. LUNGS: Clear. CARDIAC: Normal S1 and S2. ABDOMEN: Soft, nontender. EXTREMITIES: There is no edema. He has bilateral below-knee amputations as before. LABORATORY DATA: Troponin yesterday was 0.94. EKG did show looks like some possible ischemia in the anterior wall, although there are also T-wave inversions in that area previously. ASSESSMENT: 1. Severely depressed left ventricular function. 2. Severe peripheral vascular disease as outlined above. 3. Renal insufficiency, stage 3. 4. Previous bypass surgery. 5. Severe mitral regurgitation. PLAN: Continue current medical regimen. Prognosis guarded. Job ID: [id number]
[2019-11-04] MEDS: Acetaminophen 325 MG TAB PO PRN (08:54)
[2019-11-04] MEDS: Enoxaparin Sodium 40 MG/0.4 ML SYRINGE SC SCH ×2 (08:56→21:03)
[2019-11-04] MEDS: Gabapentin 300 MG CAP PO SCH ×2 (08:56→21:03)
[2019-11-04] MEDS: Famotidine 20 MG TAB PO SCH (08:57)
[2019-11-04] MEDS: Clopidogrel Bisulfate 75 MG TAB PO SCH (08:57)
[2019-11-04] MEDS: Aspirin 81 mg Enteric Coated Tablet PO SCH (08:58)
[2019-11-04] MEDS: Multivit, Therapeutic 1 TAB PO SCH (08:58)
[2019-11-04] MEDS: Insulin Glargine 20 UNITS in Pre-Filled Syringe 1 EACH SC SCH ×2 (09:00→21:04)
[2019-11-04] MEDS: HumaLOG 300 UNITS/3 ML VIAL SC PRN ×3 (11:19→21:04)
[2019-11-04] MEDS: Torsemide 20 MG TAB PO SCH (13:36)
--- NOTE | 2019-11-04 15:11 | PDOC.HOSPP ---
- Subjective Subjective: appears better then yesterday night, BP holding. - Objective Vital Signs & Weight: Vital Signs (12 hours) Temp Pulse Ox 11/04/19 11:13 97.9 F 11/04/19 08:00 100 11/04/19 07:03 97.1 F L 11/04/19 03:17 98.6 F Weight Weight 192 lb 9.6 oz Most Recent Monitor Data Heart Rate from ECG 80 NIBP 120/74 NIBP BP-Mean 89 Respiration from ECG 15 SpO2 97 I&O: 11/03/19 11/04/19 11/05/19 06:59 06:59 06:59 Intake Total 400 720 Output Total 2525 625 Balance -2125 95 Result Diagrams: 11/04/19 05:26 11/04/19 05:26 Additional Labs: Accuchecks 11/04/19 11/04/19 11/03/19 11:08 06:16 19:54 POC Glucose 182 H 81 158 H 11/03/19 18:43 POC Glucose 131 H Hospitalist ROS - Medication Medications: Active Medications Generic Name Dose Route Start Last Admin Trade Name Freq PRN Reason Stop Dose Admin Acetaminophen 650 mg 10/29/19 14:51 11/04/19 08:54 Tylenol PO 650 mg Q4H PRN Administration Headache/Fever/Mild Pain (1-3) Albuterol/Ipratropium 3 ml 10/29/19 14:55 10/29/19 18:46 Duoneb NEB 3 ml Q4H PRN Administration SOB &/or Wheezing Aspirin 81 mg 10/30/19 09:00 11/04/19 08:58 Ecotrin PO 81 mg QAM NUBIA Administration Atorvastatin Calcium 20 mg 10/29/19 21:00 11/03/19 21:16 Lipitor PO 20 mg HS NUBIA Administration Bisacodyl 10 mg 10/29/19 14:51 11/01/19 08:58 Dulcolax PO 10 mg DAILYPRN PRN Administration Constipation Clopidogrel Bisulfate 75 mg 10/30/19 09:00 11/04/19 08:57 Plavix PO 75 mg DAILY NUBIA Administration Enoxaparin Sodium 40 mg 11/02/19 21:00 11/04/19 08:56 Lovenox SC 40 mg BID NUBIA Administration Famotidine 20 mg 10/31/19 09:00 11/04/19 08:57 Pepcid PO 20 mg DAILY NUBIA Administration Gabapentin 600 mg 10/29/19 21:00 11/04/19 08:56 Neurontin PO 600 mg BID NUBIA Administration Insulin Glargine 20 units/ 0.2 mls @ 1 mls/hr 10/29/19 21:00 11/04/19 09:00 Miscellaneous Medication SC 0.2 mls BID NUBIA Administration Insulin Human Lispro 0 units 10/29/19 14:49 11/04/19 11:19 Humalog SC 3 unit .AGGRESSIVE SLIDING PRN Administration Aggressive Correctional Scale Insulin Human Lispro 0 units 10/29/19 14:49 10/30/19 21:18 Humalog SC 3 unit .BEDTIME SLIDING SC PRN Administration Bedtime Correctional Scale Levothyroxine Sodium 50 mcg 10/30/19 06:00 11/04/19 05:45 Synthroid PO 50 mcg 0600 NUBIA Administration Morphine Sulfate 2 mg 10/29/19 14:56 10/29/19 16:30 Morphine SLOW IVP 2 mg Q4H PRN Administration Moderate to Severe Pain (6-10) Multivitamins 1 tab 10/30/19 09:00 11/04/19 08:58 Theragran PO 1 tab DAILY NUBIA Administration Ondansetron HCl 4 mg 10/29/19 14:51 10/30/19 04:42 Zofran IVP 4 mg Q6H PRN Administration Nausea/Vomiting Sertraline HCl 25 mg 11/01/19 09:00 11/04/19 08:58 Zoloft PO 25 mg DAILY NUBIA Administration Sodium Chloride 10 ml 10/30/19 21:00 11/04/19 08:59 Flush - Normal Saline IVF 10 ml Q12HR NUBIA Administration Torsemide 20 mg 11/04/19 14:00 11/04/19 13:36 Demadex PO 20 mg BID@0900,1400 NUBIA Administration - Exam Eye: PERRL ENT: normocephalic atraumatic Neck: supple, symmetric Heart: RRR, no murmur Respiratory: no wheezes, no rales Gastrointestinal: soft, non-tender Hosp A/P - Plan (1) NSTEMI (non-ST elevated myocardial infarction) Code(s): I21.4 - NON-ST ELEVATION (NSTEMI) MYOCARDIAL INFARCTION Status: Acute (2) Acute on chronic systolic (congestive) heart failure Code(s): I50.23 - ACUTE ON CHRONIC SYSTOLIC (CONGESTIVE) HEART FAILURE Status : Acute (3) CKD (chronic kidney disease) stage 3, GFR 30-59 ml/min Code(s): N18.3 - CHRONIC KIDNEY DISEASE, STAGE 3 (MODERATE) Status: Acute (4) Severe mitral regurgitation Code(s): I34.0 - NONRHEUMATIC MITRAL (VALVE) INSUFFICIENCY Status: Acute (5) Ischemic cardiomyopathy Code(s): I25.5 - ISCHEMIC CARDIOMYOPATHY Status: Acute (6) DM type 2, uncontrolled, with lower extremity ulcer Code(s): E11.622 - TYPE 2 DIABETES MELLITUS WITH OTHER SKIN ULCER; E11.65 - TYPE 2 DIABETES MELLITUS WITH HYPERGLYCEMIA; L97.909 - NON-PRS CHRONIC ULC UNSP PRT OF UNSP LOW LEG W UNSP SEVERITY Status: Acute (7) CAD (coronary artery disease) Code(s): I25.10 - ATHSCL HEART DISEASE OF [place] CORONARY ARTERY W/O ANG PCTRS Status: Chronic (8) HTN (hypertension) Code(s): I10 - ESSENTIAL (PRIMARY) HYPERTENSION Status: Chronic (9) PVD (peripheral vascular disease) Code(s): I73.9 - PERIPHERAL VASCULAR DISEASE, UNSPECIFIED Status: Chronic (10) Hyperkalemia Code(s): E87.5 - HYPERKALEMIA Status: Acute (11) Metabolic acidosis Code(s): E87.2 - ACIDOSIS Status: Acute - Plan 11/01 Continue antithrombotic therapy Start alkali therapy for worsening metabolic acidosis and mild hyperkalemia repeat RFT in the am. plan for 11/02 sodium bicarb stopped torsemide continued PT ordered pox with sleep as we suspect he has SERG pox with exertion as we suspect that he might need termite inspector oxygen considering ordering a CXR plan for 11/03 seems to be doing better life vest ordered coreg increased started on lisinopril he most likely will need termite inspector oxygen supplementation. plan for 11/04 yesterday night he developed hypotension, today better and back on Demadex, coreg and JEAN is still on hold I will touch base with Cardiology about when and if to resume his other meds.
[2019-11-04] MEDS: Atorvastatin Calcium 20 MG TAB PO SCH (21:03)
[2019-11-05 04:59] LABS: Anion Gap 14 mmol/L (10-20); BUN (Urea Nitrogen) 48 mg/dL (8.4-25.7); Calc. Creatinine Clearance 61 mL/min (70-130); Calcium 8.5 mg/dL (7.8-10.44); Carbon Dioxide 29 mmol/L (23-31); Chloride 98 mmol/L (98-107); Estimated GFR-MDRD 53; Glucose 101 mg/dL (83-110); Potassium 3.7 mmol/L (3.5-5.1); Sodium 137 mmol/L (136-145)
[2019-11-05] MEDS: Levothyroxine Sodium 50 MCG TAB PO SCH (06:14)
[2019-11-05] MEDS: Multivit, Therapeutic 1 TAB PO SCH (08:58)
[2019-11-05] MEDS: Aspirin 81 mg Enteric Coated Tablet PO SCH (09:00)
[2019-11-05] MEDS: Gabapentin 300 MG CAP PO SCH ×2 (09:00→20:16)
[2019-11-05] MEDS: Famotidine 20 MG TAB PO SCH (09:00)
[2019-11-05] MEDS: Enoxaparin Sodium 40 MG/0.4 ML SYRINGE SC SCH ×2 (09:00→09:54)
[2019-11-05] MEDS: Clopidogrel Bisulfate 75 MG TAB PO SCH (09:00)
[2019-11-05] MEDS: Insulin Glargine 20 UNITS in Pre-Filled Syringe 1 EACH SC SCH ×2 (09:01→20:16)
[2019-11-05] MEDS: Torsemide 20 MG TAB PO SCH ×2 (09:04→13:28)
[2019-11-05] MEDS ORDERED: Potassium Chloride 20 MEQ TAB PO SCH (09:15)
--- NOTE | 2019-11-05 09:22 | PRG ---
DATE OF SERVICE: 11/05/2019 SUBJECTIVE: Mr. Oswald is doing well today. No complaints. No chest pain or pressure. OBJECTIVE: VITAL SIGNS: Blood pressure is 109/60 earlier, now it is 103 systolic; pulse is 70s. LUNGS: Clear. CARDIAC: Normal S1 and normal S2. ASSESSMENT: 1. Status post non-ST elevation myocardial infarction. 2. Severe peripheral vascular disease. 3. Severely depressed left ventricular function. 4. Mitral regurgitation. 5. Diabetes. 6. History of hypotension. 7. Renal failure, is actually improved, had stage 3 renal failure, now back to stage 2. PLAN: 1. Replete potassium. 2. I do not think he can tolerate JEAN inhibitors at the present time due to hypotension. 3. Continue aspirin and Plavix. 4. Continue statin and will increase dose. 5. Probably keep him here over the weekend to make sure his blood pressure is adequate and he is not having further episodes of hypotension. Long-term prognosis is guarded. Job ID: [id number]
[2019-11-05] MEDS: Ezetimibe 10 MG TAB PO SCH (09:50)
[2019-11-05] MEDS: HumaLOG 300 UNITS/3 ML VIAL SC PRN ×2 (11:07→16:52)
[2019-11-05] MEDS: Acetaminophen 325 MG TAB PO PRN (13:31)
--- NOTE | 2019-11-05 15:02 | PDOC.HOSPP ---
- Subjective Subjective: feels well, and in no acute distress. - Objective Vital Signs & Weight: Vital Signs (12 hours) Temp Pulse Ox 11/05/19 11:23 97.1 F L 11/05/19 08:00 96 11/05/19 07:14 96.7 F L 11/05/19 03:43 97.3 F L Weight Weight 191 lb Most Recent Monitor Data Heart Rate from ECG 85 NIBP 93/56 NIBP BP-Mean 68 Respiration from ECG 18 SpO2 99 I&O: 11/04/19 11/05/19 11/06/19 06:59 06:59 06:59 Intake Total 720 1760 Output Total 625 1745 Balance 95 15 Result Diagrams: 11/04/19 05:26 11/05/19 03:43 Additional Labs: Accuchecks 11/05/19 11/05/19 11/04/19 10:38 06:10 20:06 POC Glucose 202 H 103 231 H 11/04/19 17:02 POC Glucose 171 H Hospitalist ROS - Medication Medications: Active Medications Generic Name Dose Route Start Last Admin Trade Name Freq PRN Reason Stop Dose Admin Acetaminophen 650 mg 10/29/19 14:51 11/05/19 13:31 Tylenol PO 650 mg Q4H PRN Administration Headache/Fever/Mild Pain (1-3) Albuterol/Ipratropium 3 ml 10/29/19 14:55 10/29/19 18:46 Duoneb NEB 3 ml Q4H PRN Administration SOB &/or Wheezing Aspirin 81 mg 10/30/19 09:00 11/05/19 09:00 Ecotrin PO 81 mg QAM NUBIA Administration Bisacodyl 10 mg 10/29/19 14:51 11/01/19 08:58 Dulcolax PO 10 mg DAILYPRN PRN Administration Constipation Clopidogrel Bisulfate 75 mg 10/30/19 09:00 11/05/19 09:00 Plavix PO 75 mg DAILY NUBIA Administration Docusate Sodium 100 mg 10/29/19 14:55 11/05/19 09:00 Colace PO 100 mg BIDPRN PRN Administration Constipation Ezetimibe 10 mg 11/05/19 09:00 11/05/19 09:50 Zetia PO 10 mg DAILY NUBIA Administration Enoxaparin Sodium 40 mg 11/05/19 09:00 11/05/19 09:54 Lovenox SC Not Given 0900 NUBIA Famotidine 20 mg 10/31/19 09:00 11/05/19 09:00 Pepcid PO 20 mg DAILY NUBIA Administration Gabapentin 600 mg 10/29/19 21:00 11/05/19 09:00 Neurontin PO 600 mg BID NUBIA Administration Insulin Glargine 20 units/ 0.2 mls @ 1 mls/hr 10/29/19 21:00 11/05/19 09:01 Miscellaneous Medication SC 0.2 mls BID NUBIA Administration Insulin Human Lispro 0 units 10/29/19 14:49 11/05/19 11:07 Humalog SC 6 unit .AGGRESSIVE SLIDING PRN Administration Aggressive Correctional Scale Insulin Human Lispro 0 units 10/29/19 14:49 11/04/19 21:04 Humalog SC 2 unit .BEDTIME SLIDING SC PRN Administration Bedtime Correctional Scale Levothyroxine Sodium 50 mcg 10/30/19 06:00 11/05/19 06:14 Synthroid PO 50 mcg 0600 NUBIA Administration Morphine Sulfate 2 mg 10/29/19 14:56 10/29/19 16:30 Morphine SLOW IVP 2 mg Q4H PRN Administration Moderate to Severe Pain (6-10) Multivitamins 1 tab 10/30/19 09:00 11/05/19 08:58 Theragran PO 1 tab DAILY NUBIA Administration Ondansetron HCl 4 mg 10/29/19 14:51 10/30/19 04:42 Zofran IVP 4 mg Q6H PRN Administration Nausea/Vomiting Sertraline HCl 25 mg 11/01/19 09:00 11/05/19 09:00 Zoloft PO 25 mg DAILY NUBIA Administration Sodium Chloride 10 ml 10/30/19 21:00 11/05/19 08:58 Flush - Normal Saline IVF 10 ml Q12HR NUBIA Administration Torsemide 20 mg 11/04/19 14:00 11/05/19 13:28 Demadex PO 20 mg BID@0900,1400 NUBIA Administration - Exam General Appearance: NAD, awake alert Eye: PERRL ENT: normocephalic atraumatic Neck: supple Respiratory: CTAB Gastrointestinal: soft, non-tender Extremities: no cyanosis, no clubbing Neurological: cranial nerve grossly intact, normal sensation to touch Hosp A/P - Plan (1) NSTEMI (non-ST elevated myocardial infarction) Code(s): I21.4 - NON-ST ELEVATION (NSTEMI) MYOCARDIAL INFARCTION Status: Acute (2) Acute on chronic systolic (congestive) heart failure Code(s): I50.23 - ACUTE ON CHRONIC SYSTOLIC (CONGESTIVE) HEART FAILURE Status : Acute (3) CKD (chronic kidney disease) stage 3, GFR 30-59 ml/min Code(s): N18.3 - CHRONIC KIDNEY DISEASE, STAGE 3 (MODERATE) Status: Acute (4) Severe mitral regurgitation Code(s): I34.0 - NONRHEUMATIC MITRAL (VALVE) INSUFFICIENCY Status: Acute (5) Ischemic cardiomyopathy Code(s): I25.5 - ISCHEMIC CARDIOMYOPATHY Status: Acute (6) DM type 2, uncontrolled, with lower extremity ulcer Code(s): E11.622 - TYPE 2 DIABETES MELLITUS WITH OTHER SKIN ULCER; E11.65 - TYPE 2 DIABETES MELLITUS WITH HYPERGLYCEMIA; L97.909 - NON-PRS CHRONIC ULC UNSP PRT OF UNSP LOW LEG W UNSP SEVERITY Status: Acute (7) CAD (coronary artery disease) Code(s): I25.10 - ATHSCL HEART DISEASE OF [place] CORONARY ARTERY W/O ANG PCTRS Status: Chronic (8) HTN (hypertension) Code(s): I10 - ESSENTIAL (PRIMARY) HYPERTENSION Status: Chronic (9) PVD (peripheral vascular disease) Code(s): I73.9 - PERIPHERAL VASCULAR DISEASE, UNSPECIFIED Status: Chronic (10) Hyperkalemia Code(s): E87.5 - HYPERKALEMIA Status: Acute (11) Metabolic acidosis Code(s): E87.2 - ACIDOSIS Status: Acute - Plan 11/01 Continue antithrombotic therapy Start alkali therapy for worsening metabolic acidosis and mild hyperkalemia repeat RFT in the am. 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 plan for 11/04 yesterday night he developed hypotension, today better and back on Demadex, coreg and JEAN is still on hold I will touch base with Cardiology about when and if to resume his other meds. plan for today 11/05 Patient BP is borderline normal he is still off BP meds. his lungs sound better today. continue ASA and Plavix. Statin increased.
[2019-11-05] MEDS: Potassium Chloride 10 MEQ TAB PO SCH (16:52)
[2019-11-05] MEDS: Atorvastatin Calcium 40 MG TAB PO SCH (20:16)
[2019-11-06 03:40] LABS: #Eosinphils 0.2 thou/uL (0.0-0.7); #Lymphocytes 1.2 thou/uL (1.20-3.40); #Monocytes 0.9 thou/uL (0.11-0.59); #Neutrophils 4.8 thou/uL (1.40-6.50); %Basophils 0.5 % (0.0-1.0); %Eosinophils 2.9 % (0.0-10.0); %Lymphocytes 16.9 % (21.0-51.0); %Neutrophils 67.8 % (42.0-75.0); Hemoglobin 12.8 g/dL (14.0-18.0); Mean Corpuscular HGB CONC 32.7 g/dL (32.0-36.0); Mean Corpuscular Hemoglobin 28.3 pg (27.0-31.0); Mean Corpuscular Volume 86.7 fL (78.0-98.0); Mean Platelet Volume 11.2 fL (7.4-10.4); Platelet Count 161 thou/uL (130-400); RBC Distribution Width 15.7 % (11.5-14.5); Red Blood Cell (RBC) Count 4.53 mill/uL (4.70-6.10); White Blood Cell (WBC) Count 7.1 thou/uL (4.8-10.8)
[2019-11-06 04:08] LABS: Anion Gap 15 mmol/L (10-20); BUN (Urea Nitrogen) 44 mg/dL (8.4-25.7); Calc. Creatinine Clearance 66 mL/min (70-130); Carbon Dioxide 25 mmol/L (23-31); Chloride 102 mmol/L (98-107); Estimated GFR-MDRD 59; Glucose 129 mg/dL (83-110); Potassium 3.9 mmol/L (3.5-5.1); Sodium 138 mmol/L (136-145)
[2019-11-06] MEDS: Levothyroxine Sodium 50 MCG TAB PO SCH (06:00)
[2019-11-06] MEDS: Potassium Chloride 10 MEQ TAB PO SCH ×2 (08:24→16:58)
[2019-11-06] MEDS: Clopidogrel Bisulfate 75 MG TAB PO SCH (08:25)
[2019-11-06] MEDS: Enoxaparin Sodium 40 MG/0.4 ML SYRINGE SC SCH (08:25)
[2019-11-06] MEDS: Aspirin 81 mg Enteric Coated Tablet PO SCH (08:25)
[2019-11-06] MEDS: Insulin Glargine 20 UNITS in Pre-Filled Syringe 1 EACH SC SCH (08:26)
[2019-11-06] MEDS: Ezetimibe 10 MG TAB PO SCH (08:26)
[2019-11-06] MEDS: Multivit, Therapeutic 1 TAB PO SCH (08:26)
[2019-11-06] MEDS: Famotidine 20 MG TAB PO SCH (08:26)
[2019-11-06] MEDS: Gabapentin 300 MG CAP PO SCH ×2 (08:26→20:39)
[2019-11-06] MEDS: Torsemide 20 MG TAB PO SCH ×2 (08:28→16:58)
[2019-11-06] MEDS ORDERED: Insulin Glargine 18 UNITS in Pre-Filled Syringe 1 EACH SC SCH (10:45)
[2019-11-06] MEDS ORDERED: Spironolactone 25 MG TAB PO SCH (10:45)
[2019-11-06] MEDS: HumaLOG 300 UNITS/3 ML VIAL SC PRN ×3 (11:06→20:48)
--- NOTE | 2019-11-06 13:16 | PDOC.HOSPP ---
- Subjective Subjective: Seen and examined. Patient significantly improved from when I saw him roughly 5 days ago. Breathing well on room air. Patient has life vest in position. Unfortunately with hypotension patient's cardiomyopathy regimen has been severely limited. - Objective Vital Signs & Weight: Vital Signs (12 hours) Temp Resp Pulse Ox 11/06/19 11:07 97.0 F L 11/06/19 08:00 100 11/06/19 07:24 97.2 F L 11/06/19 06:00 18 11/06/19 04:00 16 11/06/19 03:15 98.0 F Weight Weight 192 lb 2 oz Most Recent Monitor Data Heart Rate from ECG 73 NIBP 112/78 NIBP BP-Mean 89 Respiration from ECG 13 SpO2 100 I&O: 11/05/19 11/06/19 11/07/19 06:59 06:59 06:59 Intake Total 1760 910 Output Total 1745 1000 Balance 15 -90 Result Diagrams: 11/06/19 03:29 11/06/19 03:29 Additional Labs: Accuchecks 11/06/19 11/06/19 11/05/19 10:19 06:14 20:14 POC Glucose 252 H 125 H 156 H Radiology Reviewed by me: Yes Hospitalist ROS - Review of Systems All other systems reviewed; all pertinent +/- noted in HPI/Subj - Medication Medications: Active Medications Generic Name Dose Route Start Last Admin Trade Name Freq PRN Reason Stop Dose Admin Acetaminophen 650 mg 10/29/19 14:51 11/05/19 13:31 Tylenol PO 650 mg Q4H PRN Administration Headache/Fever/Mild Pain (1-3) Albuterol/Ipratropium 3 ml 10/29/19 14:55 10/29/19 18:46 Duoneb NEB 3 ml Q4H PRN Administration SOB &/or Wheezing Aspirin 81 mg 10/30/19 09:00 11/06/19 08:25 Ecotrin PO 81 mg QAM NUBIA Administration Atorvastatin Calcium 40 mg 11/05/19 21:00 11/05/19 20:16 Lipitor PO 40 mg HS NUBIA Administration Bisacodyl 10 mg 10/29/19 14:51 11/01/19 08:58 Dulcolax PO 10 mg DAILYPRN PRN Administration Constipation Clopidogrel Bisulfate 75 mg 10/30/19 09:00 11/06/19 08:25 Plavix PO 75 mg DAILY NUBIA Administration Docusate Sodium 100 mg 10/29/19 14:55 11/05/19 09:00 Colace PO 100 mg BIDPRN PRN Administration Constipation Ezetimibe 10 mg 11/05/19 09:00 11/06/19 08:26 Zetia PO 10 mg DAILY NUBIA Administration Enoxaparin Sodium 40 mg 11/05/19 09:00 11/06/19 08:25 Lovenox SC 40 mg 0900 NUBIA Administration Famotidine 20 mg 10/31/19 09:00 11/06/19 08:26 Pepcid PO 20 mg DAILY NUBIA Administration Gabapentin 600 mg 10/29/19 21:00 11/06/19 08:26 Neurontin PO 600 mg BID NUBIA Administration Insulin Human Lispro 0 units 10/29/19 14:49 11/06/19 11:06 Humalog SC 9 unit .AGGRESSIVE SLIDING PRN Administration Aggressive Correctional Scale Insulin Human Lispro 0 units 10/29/19 14:49 11/04/19 21:04 Humalog SC 2 unit .BEDTIME SLIDING SC PRN Administration Bedtime Correctional Scale Levothyroxine Sodium 50 mcg 10/30/19 06:00 11/06/19 06:00 Synthroid PO 50 mcg 0600 NUBIA Administration Morphine Sulfate 2 mg 10/29/19 14:56 10/29/19 16:30 Morphine SLOW IVP 2 mg Q4H PRN Administration Moderate to Severe Pain (6-10) Multivitamins 1 tab 10/30/19 09:00 11/06/19 08:26 Theragran PO 1 tab DAILY NUBIA Administration Ondansetron HCl 4 mg 10/29/19 14:51 10/30/19 04:42 Zofran IVP 4 mg Q6H PRN Administration Nausea/Vomiting Potassium Chloride 10 meq 11/05/19 17:00 11/06/19 08:24 Klor-Con 10 PO 10 meq BID-WM NUBIA Administration Sertraline HCl 25 mg 11/01/19 09:00 11/06/19 08:26 Zoloft PO 25 mg DAILY NUBIA Administration Sodium Chloride 10 ml 10/30/19 21:00 11/06/19 08:27 Flush - Normal Saline IVF 10 ml Q12HR NUBIA Administration Torsemide 20 mg 11/04/19 14:00 11/06/19 08:28 Demadex PO 20 mg BID@0900,1400 NUBIA Administration - Exam General Appearance: NAD, awake alert Eye: anicteric sclera ENT: normocephalic atraumatic, moist mucosa Neck: supple, symmetric, no lymphadenopathy Heart: no murmur, no gallops, no rubs, normal peripheral pulses Respiratory: CTAB, no wheezes, no rales, no ronchi, normal chest expansion, no tachypnea Gastrointestinal: soft, non-tender, no guarding, no rigidity Extremities: no edema Skin: no lesions, no rashes Neurological: cranial nerve grossly intact, no focal deficits Musculoskeletal: generalized weakness Psychiatric: normal affect, normal behavior Hosp A/P (1) NSTEMI (non-ST elevated myocardial infarction) Code(s): I21.4 - NON-ST ELEVATION (NSTEMI) MYOCARDIAL INFARCTION Status: Acute (2) DM type 2, uncontrolled, with lower extremity ulcer Code(s): E11.622 - TYPE 2 DIABETES MELLITUS WITH OTHER SKIN ULCER; E11.65 - TYPE 2 DIABETES MELLITUS WITH HYPERGLYCEMIA; L97.909 - NON-PRS CHRONIC ULC UNSP PRT OF UNSP LOW LEG W UNSP SEVERITY Status: Acute (3) HLD (hyperlipidemia) Code(s): E78.5 - HYPERLIPIDEMIA, UNSPECIFIED Status: Acute (4) Debility Code(s): R53.81 - OTHER MAL[place]ISE Status: Acute (5) Acute CHF (congestive heart failure) Code(s): I50.9 - HEART FAILURE, UNSPECIFIED Status: Acute Qualifiers: Qualified Code(s): I50.21 - Acute systolic (congestive) heart failure (6) Anemia Code(s): D64.9 - ANEMIA, UNSPECIFIED Status: Acute Qualifiers: Anemia type: other cause Other causes of anemia: antineoplastic chemotherapy Qualified Code(s): D64.81 - Anemia due to antineoplastic chemotherapy (7) Cardiomyopathy Code(s): I42.9 - CARDIOMYOPATHY, UNSPECIFIED Status: Acute (8) Dyspnea Code(s): R06.00 - DYSPNEA, UNSPECIFIED Status: Acute (9) Volume overload Code(s): E87.70 - FLUID OVERLOAD, UNSPECIFIED Status: Acute (10) CAD (coronary artery disease) Code(s): I25.10 - ATHSCL HEART DISEASE OF [place] CORONARY ARTERY W/O ANG PCTRS Status: Chronic (11) HTN (hypertension) Code(s): I10 - ESSENTIAL (PRIMARY) HYPERTENSION Status: Chronic (12) Lung cancer Code(s): C34.90 - MALIGNANT NEOPLASM OF UNSP PART OF UNSP BRONCHUS OR LUNG Status: Chronic (13) PVD (peripheral vascular disease) Code(s): I73.9 - PERIPHERAL VASCULAR DISEASE, UNSPECIFIED Status: Chronic - Plan Plan: [facility] cardiology consultation, recommendations appreciated pulmonology/critical-care consultation, recommendations appreciated excellent further plan of care per cardiology Life vest in place Maximum medical therapy for CAD/ CHF Unfortunately cardiomyopathy regimen limited secondary to hypotension patient saturating well on low-flow nasal cannula/ and room air long and short acting insulin for glucose control blood pressure control Continue home medications as able short and long-term prognosis for this patient remain guarded
[2019-11-06] MEDS: Carvedilol 3.125 MG TAB PO SCH (16:58)
[2019-11-06] MEDS: Insulin Glargine 18 UNITS in Pre-Filled Syringe 1 EACH SC SCH (20:39)
[2019-11-06] MEDS: Atorvastatin Calcium 40 MG TAB PO SCH (20:39)
[2019-11-07] MEDS: Levothyroxine Sodium 50 MCG TAB PO SCH (06:03)
[2019-11-07] MEDS: Carvedilol 3.125 MG TAB PO SCH ×2 (08:43→16:59)
[2019-11-07] MEDS: Potassium Chloride 10 MEQ TAB PO SCH ×2 (08:43→16:59)
[2019-11-07] MEDS: Aspirin 81 mg Enteric Coated Tablet PO SCH (08:44)
[2019-11-07] MEDS: Enoxaparin Sodium 40 MG/0.4 ML SYRINGE SC SCH (08:44)
[2019-11-07] MEDS: Spironolactone 25 MG TAB PO SCH (08:44)
[2019-11-07] MEDS: Clopidogrel Bisulfate 75 MG TAB PO SCH (08:44)
[2019-11-07] MEDS: Ezetimibe 10 MG TAB PO SCH (08:45)
[2019-11-07] MEDS: Gabapentin 300 MG CAP PO SCH ×2 (08:45→20:27)
[2019-11-07] MEDS: Multivit, Therapeutic 1 TAB PO SCH (08:45)
[2019-11-07] MEDS: Famotidine 20 MG TAB PO SCH (08:45)
[2019-11-07] MEDS: Insulin Glargine 18 UNITS in Pre-Filled Syringe 1 EACH SC SCH ×2 (08:45→20:37)
[2019-11-07] MEDS: Torsemide 20 MG TAB PO SCH ×2 (08:46→13:43)
[2019-11-07] MEDS: HumaLOG 300 UNITS/3 ML VIAL SC PRN ×2 (11:11→17:00)
--- NOTE | 2019-11-07 12:58 | PDOC.HOSPP ---
- Subjective Subjective: Seen and examined. Patient clinically improving. Life vest in place. Breathing well on room air. Patient's blood pressure is tolerating restarting of cardiomyopathy regimen. at bedside, all questions answered in detail. Patient and his are happy with plan of care. - Objective Vital Signs & Weight: Vital Signs (12 hours) Temp Pulse Ox 11/07/19 10:29 97.0 F L 11/07/19 07:55 98 11/07/19 07:09 97.0 F L 11/07/19 03:04 98.2 F Weight Weight 191 lb 11.2 oz Most Recent Monitor Data Heart Rate from ECG 69 NIBP 110/66 NIBP BP-Mean 80 Respiration from ECG 17 SpO2 100 I&O: 11/06/19 11/07/19 11/08/19 06:59 06:59 06:59 Intake Total 910 1000 Output Total 1000 1400 Balance -90 -400 Result Diagrams: 11/06/19 03:29 11/06/19 03:29 Additional Labs: Accuchecks 11/07/19 11/07/19 11/06/19 10:12 06:04 20:07 POC Glucose 213 H 101 242 H 11/06/19 16:32 POC Glucose 185 H Radiology Reviewed by me: Yes Hospitalist ROS - Review of Systems All other systems reviewed; all pertinent +/- noted in HPI/Subj - Medication Medications: Active Medications Generic Name Dose Route Start Last Admin Trade Name Freq PRN Reason Stop Dose Admin Acetaminophen 650 mg 10/29/19 14:51 11/05/19 13:31 Tylenol PO 650 mg Q4H PRN Administration Headache/Fever/Mild Pain (1-3) Albuterol/Ipratropium 3 ml 10/29/19 14:55 10/29/19 18:46 Duoneb NEB 3 ml Q4H PRN Administration SOB &/or Wheezing Aspirin 81 mg 10/30/19 09:00 11/07/19 08:44 Ecotrin PO 81 mg QAM NUBIA Administration Atorvastatin Calcium 40 mg 11/05/19 21:00 11/06/19 20:39 Lipitor PO 40 mg HS NUBIA Administration Bisacodyl 10 mg 10/29/19 14:51 11/01/19 08:58 Dulcolax PO 10 mg DAILYPRN PRN Administration Constipation Carvedilol 3.125 mg 11/06/19 17:00 11/07/19 08:43 Coreg PO 3.125 mg BID-WM NUBIA Administration Clopidogrel Bisulfate 75 mg 10/30/19 09:00 11/07/19 08:44 Plavix PO 75 mg DAILY NUBIA Administration Docusate Sodium 100 mg 10/29/19 14:55 11/05/19 09:00 Colace PO 100 mg BIDPRN PRN Administration Constipation Ezetimibe 10 mg 11/05/19 09:00 11/07/19 08:45 Zetia PO 10 mg DAILY NUBIA Administration Enoxaparin Sodium 40 mg 11/05/19 09:00 11/07/19 08:44 Lovenox SC 40 mg 0900 NUBIA Administration Famotidine 20 mg 10/31/19 09:00 11/07/19 08:45 Pepcid PO 20 mg DAILY NUBIA Administration Gabapentin 600 mg 10/29/19 21:00 11/07/19 08:45 Neurontin PO 600 mg BID NUBIA Administration Insulin Glargine 18 units/ 0.18 mls @ 1 mls/hr 11/06/19 21:00 11/07/19 08:45 Miscellaneous Medication SC 0.18 mls BID NUBIA Administration Insulin Human Lispro 0 units 10/29/19 14:49 11/07/19 11:11 Humalog SC 6 unit .AGGRESSIVE SLIDING PRN Administration Aggressive Correctional Scale Insulin Human Lispro 0 units 10/29/19 14:49 11/06/19 20:48 Humalog SC 2 unit .BEDTIME SLIDING SC PRN Administration Bedtime Correctional Scale Levothyroxine Sodium 50 mcg 10/30/19 06:00 11/07/19 06:03 Synthroid PO 50 mcg 0600 NUBIA Administration Morphine Sulfate 2 mg 10/29/19 14:56 10/29/19 16:30 Morphine SLOW IVP 2 mg Q4H PRN Administration Moderate to Severe Pain (6-10) Multivitamins 1 tab 10/30/19 09:00 11/07/19 08:45 Theragran PO 1 tab DAILY NUBIA Administration Ondansetron HCl 4 mg 10/29/19 14:51 10/30/19 04:42 Zofran IVP 4 mg Q6H PRN Administration Nausea/Vomiting Potassium Chloride 10 meq 11/05/19 17:00 11/07/19 08:43 Klor-Con 10 PO 10 meq BID-WM NUBIA Administration Sertraline HCl 25 mg 11/01/19 09:00 11/07/19 08:45 Zoloft PO 25 mg DAILY NUBIA Administration Sodium Chloride 10 ml 10/30/19 21:00 11/07/19 08:45 Flush - Normal Saline IVF 10 ml Q12HR NUBIA Administration Spironolactone 25 mg 11/07/19 08:00 11/07/19 08:44 Aldactone PO 25 mg QAM-WM NUBIA Administration Torsemide 20 mg 11/04/19 14:00 11/07/19 08:46 Demadex PO 20 mg BID@0900,1400 NUBIA Administration - Exam General Appearance: NAD, awake alert Eye: PERRL ENT: normocephalic atraumatic, no oropharyngeal lesions, moist mucosa Neck: supple, symmetric Heart: no murmur, no gallops, no rubs Respiratory: no wheezes, no rales, no ronchi Gastrointestinal: soft, non-tender, no guarding, no rigidity Extremities: no edema Skin: no lesions, no rashes Neurological: cranial nerve grossly intact, no focal deficits Musculoskeletal: no muscle wasting Musculoskeletal - other findings: Bilateral LE amputations Psychiatric: normal affect, normal behavior, A&O x 3 Hosp A/P (1) NSTEMI (non-ST elevated myocardial infarction) Code(s): I21.4 - NON-ST ELEVATION (NSTEMI) MYOCARDIAL INFARCTION Status: Acute (2) DM type 2, uncontrolled, with lower extremity ulcer Code(s): E11.622 - TYPE 2 DIABETES MELLITUS WITH OTHER SKIN ULCER; E11.65 - TYPE 2 DIABETES MELLITUS WITH HYPERGLYCEMIA; L97.909 - NON-PRS CHRONIC ULC UNSP PRT OF UNSP LOW LEG W UNSP SEVERITY Status: Acute (3) HLD (hyperlipidemia) Code(s): E78.5 - HYPERLIPIDEMIA, UNSPECIFIED Status: Acute (4) Debility Code(s): R53.81 - OTHER MALAISE Status: Acute (5) Acute CHF (congestive heart failure) Code(s): I50.9 - HEART FAILURE, UNSPECIFIED Status: Acute Qualifiers: Qualified Code(s): I50.21 - Acute systolic (congestive) heart failure (6) Anemia Code(s): D64.9 - ANEMIA, UNSPECIFIED Status: Acute Qualifiers: Anemia type: other cause Other causes of anemia: antineoplastic chemotherapy Qualified Code(s): D64.81 - Anemia due to antineoplastic chemotherapy (7) Cardiomyopathy Code(s): I42.9 - CARDIOMYOPATHY, UNSPECIFIED Status: Acute (8) Dyspnea Code(s): R06.00 - DYSPNEA, UNSPECIFIED Status: Acute (9) Volume overload Code(s): E87.70 - FLUID OVERLOAD, UNSPECIFIED Status: Acute (10) CAD (coronary artery disease) Code(s): I25.10 - ATHSCL HEART DISEASE OF [place] CORONARY ARTERY W/O ANG PCTRS Status: Chronic (11) HTN (hypertension) Code(s): I10 - ESSENTIAL (PRIMARY) HYPERTENSION Status: Chronic (12) Lung cancer Code(s): C34.90 - MALIGNANT NEOPLASM OF UNSP PART OF UNSP BRONCHUS OR LUNG Status: Chronic (13) PVD (peripheral vascular disease) Code(s): I73.9 - PERIPHERAL VASCULAR DISEASE, UNSPECIFIED Status: Chronic - Plan Plan: [facility] cardiology consultation, recommendations appreciated pulmonology/critical-care consultation, recommendations appreciated excellent further plan of care per cardiology Life vest in place Maximum medical therapy for CAD/ CHF Cardiomyopathy regimen being restarted appropriately per cardiology, as tolerated by vitals patient saturating well on low-flow nasal cannula/ and room air long and short acting insulin for glucose control blood pressure control Continue home medications as able long-term prognosis for this patient remain guarded
[2019-11-07 13:33] LABS: Anion Gap 17 mmol/L (10-20); BUN (Urea Nitrogen) 38 mg/dL (8.4-25.7); Calc. Creatinine Clearance 55 mL/min (70-130); Carbon Dioxide 19 mmol/L (23-31); Chloride 99 mmol/L (98-107); Estimated GFR-MDRD 47; Glucose 276 mg/dL (83-110); Potassium 5.3 mmol/L (3.5-5.1); Sodium 130 mmol/L (136-145)
[2019-11-07] MEDS: Atorvastatin Calcium 40 MG TAB PO SCH (20:27)
[2019-11-08 04:16] LABS: Anion Gap 15 mmol/L (10-20); BUN (Urea Nitrogen) 36 mg/dL (8.4-25.7); Calc. Creatinine Clearance 60 mL/min (70-130); Calcium 9.4 mg/dL (7.8-10.44); Carbon Dioxide 24 mmol/L (23-31); Chloride 103 mmol/L (98-107); Estimated GFR-MDRD 53; Glucose 109 mg/dL (83-110); Potassium 4.5 mmol/L (3.5-5.1); Sodium 137 mmol/L (136-145)
[2019-11-08] MEDS: Levothyroxine Sodium 50 MCG TAB PO SCH (05:29)
[2019-11-08] MEDS: Aspirin 81 mg Enteric Coated Tablet PO SCH (08:50)
[2019-11-08] MEDS: Spironolactone 25 MG TAB PO SCH (08:50)
[2019-11-08] MEDS: Potassium Chloride 10 MEQ TAB PO SCH ×2 (08:50→16:47)
[2019-11-08] MEDS: Carvedilol 3.125 MG TAB PO SCH ×2 (08:50→16:47)
[2019-11-08] MEDS: Famotidine 20 MG TAB PO SCH (08:51)
[2019-11-08] MEDS: Clopidogrel Bisulfate 75 MG TAB PO SCH (08:51)
[2019-11-08] MEDS: Gabapentin 300 MG CAP PO SCH (08:51)
[2019-11-08] MEDS: Insulin Glargine 18 UNITS in Pre-Filled Syringe 1 EACH SC SCH (08:51)
[2019-11-08] MEDS: Enoxaparin Sodium 40 MG/0.4 ML SYRINGE SC SCH (08:51)
[2019-11-08] MEDS: Ezetimibe 10 MG TAB PO SCH (08:51)
[2019-11-08] MEDS: Multivit, Therapeutic 1 TAB PO SCH (08:52)
[2019-11-08] MEDS ORDERED: Clopidogrel Bisulfate 75 MG TAB ONE (08:55)
[2019-11-08] MEDS: Torsemide 20 MG TAB PO SCH ×2 (08:56→16:47)
--- NOTE | 2019-11-08 10:17 | PDOC.HOSPP ---
- Subjective Encounter Date: 11/08/19 Encounter Time: 14:10 Subjective: Patient feeling well. No Chest pain. No SOB. Ambulating and eating well. Eager to go home. Would like home health. - Objective Vital Signs & Weight: Vital Signs (12 hours) Temp Pulse Ox 11/08/19 08:00 95 11/08/19 07:21 97.0 F L 11/08/19 06:29 95 11/08/19 04:00 96.8 F L 11/08/19 00:20 92 L 11/07/19 23:54 96.8 F L Weight Weight 192 lb 1.6 oz Most Recent Monitor Data Heart Rate from ECG 68 NIBP 125/71 NIBP BP-Mean 89 Respiration from ECG 17 SpO2 100 I&O: 11/07/19 11/08/19 11/09/19 06:59 06:59 06:59 Intake Total 1000 920 Output Total 1400 2225 Balance -400 -1305 Result Diagrams: 11/06/19 03:29 11/08/19 03:38 Additional Labs: Accuchecks 11/08/19 11/07/19 11/07/19 05:35 20:21 16:17 POC Glucose 114 H 192 H 246 H 11/07/19 11/05/19 10:12 16:08 POC Glucose 213 H 196 H Hospitalist ROS - Review of Systems Constitutional: denies: fever, chills Respiratory: denies: cough, shortness of breath Cardiovascular: denies: chest pain, palpitations Gastrointestinal: denies: nausea, vomiting, abdominal pain Neurological: denies: weakness, numbness - Medication Medications: Active Medications Generic Name Dose Route Start Last Admin Trade Name Freq PRN Reason Stop Dose Admin Acetaminophen 650 mg 10/29/19 14:51 11/05/19 13:31 Tylenol PO 650 mg Q4H PRN Administration Headache/Fever/Mild Pain (1-3) Albuterol/Ipratropium 3 ml 10/29/19 14:55 10/29/19 18:46 Duoneb NEB 3 ml Q4H PRN Administration SOB &/or Wheezing Aspirin 81 mg 10/30/19 09:00 11/08/19 08:50 Ecotrin PO 81 mg QAM NUBIA Administration Atorvastatin Calcium 40 mg 11/05/19 21:00 11/07/19 20:27 Lipitor PO 40 mg HS NUBIA Administration Bisacodyl 10 mg 10/29/19 14:51 11/01/19 08:58 Dulcolax PO 10 mg DAILYPRN PRN Administration Constipation Carvedilol 3.125 mg 11/06/19 17:00 11/08/19 08:50 Coreg PO 3.125 mg BID-WM NUBIA Administration Clopidogrel Bisulfate 75 mg 10/30/19 09:00 11/08/19 08:51 Plavix PO 75 mg DAILY NUBIA Administration Docusate Sodium 100 mg 10/29/19 14:55 11/05/19 09:00 Colace PO 100 mg BIDPRN PRN Administration Constipation Ezetimibe 10 mg 11/05/19 09:00 11/08/19 08:51 Zetia PO 10 mg DAILY NUBIA Administration Enoxaparin Sodium 40 mg 11/05/19 09:00 11/08/19 08:51 Lovenox SC 40 mg 0900 NUBIA Administration Famotidine 20 mg 10/31/19 09:00 11/08/19 08:51 Pepcid PO 20 mg DAILY NUBIA Administration Gabapentin 600 mg 10/29/19 21:00 11/08/19 08:51 Neurontin PO 600 mg BID NUBIA Administration Insulin Glargine 18 units/ 0.18 mls @ 1 mls/hr 11/06/19 21:00 11/08/19 08:51 Miscellaneous Medication SC 0.18 mls BID NUBIA Administration Insulin Human Lispro 0 units 10/29/19 14:49 11/07/19 17:00 Humalog SC 6 unit .AGGRESSIVE SLIDING PRN Administration Aggressive Correctional Scale Insulin Human Lispro 0 units 10/29/19 14:49 11/06/19 20:48 Humalog SC 2 unit .BEDTIME SLIDING SC PRN Administration Bedtime Correctional Scale Levothyroxine Sodium 50 mcg 10/30/19 06:00 11/08/19 05:29 Synthroid PO 50 mcg 0600 NUBIA Administration Morphine Sulfate 2 mg 10/29/19 14:56 10/29/19 16:30 Morphine SLOW IVP 2 mg Q4H PRN Administration Moderate to Severe Pain (6-10) Multivitamins 1 tab 10/30/19 09:00 11/08/19 08:52 Theragran PO 1 tab DAILY NUBIA Administration Ondansetron HCl 4 mg 10/29/19 14:51 10/30/19 04:42 Zofran IVP 4 mg Q6H PRN Administration Nausea/Vomiting Potassium Chloride 10 meq 11/05/19 17:00 11/08/19 08:50 Klor-Con 10 PO 10 meq BID-WM NUBIA Administration Sertraline HCl 25 mg 11/01/19 09:00 11/08/19 08:52 Zoloft PO 25 mg DAILY NUBIA Administration Sodium Chloride 10 ml 10/30/19 21:00 11/08/19 08:52 Flush - Normal Saline IVF 10 ml Q12HR NUBIA Administration Spironolactone 25 mg 11/07/19 08:00 11/08/19 08:50 Aldactone PO 25 mg QAM-WM NUBIA Administration Torsemide 20 mg 11/04/19 14:00 11/08/19 08:56 Demadex PO 20 mg BID@0900,1400 NUBIA Administration - Exam General Appearance: NAD Eye: PERRL, anicteric sclera ENT: normocephalic atraumatic, moist mucosa Heart: RRR, no murmur Respiratory: CTAB, no wheezes Gastrointestinal: soft, non-tender, non-distended Extremities: no cyanosis, no clubbing, no edema Skin: no lesions Neurological: no focal deficits Psychiatric: normal affect, normal behavior, A&O x 3 Hosp A/P (1) NSTEMI (non-ST elevated myocardial infarction) Code(s): I21.4 - NON-ST ELEVATION (NSTEMI) MYOCARDIAL INFARCTION Status: Acute Plan: Dr. Lantigua following (2) HTN (hypertension) Code(s): I10 - ESSENTIAL (PRIMARY) HYPERTENSION Status: Chronic Qualifiers: Hypertension type: essential hypertension Qualified Code(s): I10 - Essential (primary) hypertension Plan: with some hypotension during this hospitalization, now tolerating restart of torsemide, spironolactone, and carvedilol, but spironolactone d/c'd due to mild hyperkalemia (3) Acute on chronic systolic (congestive) heart failure Code(s): I50.23 - ACUTE ON CHRONIC SYSTOLIC (CONGESTIVE) HEART FAILURE Status : Acute (4) Acute renal failure superimposed on stage 3 chronic kidney disease Code(s): N17.9 - ACUTE KIDNEY FAILURE, UNSPECIFIED; N18.3 - CHRONIC KIDNEY DISEASE, STAGE 3 (MODERATE) Status: Acute Plan: creatinine improved (5) DM type 2, uncontrolled, with lower extremity ulcer Code(s): E11.622 - TYPE 2 DIABETES MELLITUS WITH OTHER SKIN ULCER; E11.65 - TYPE 2 DIABETES MELLITUS WITH HYPERGLYCEMIA; L97.909 - NON-PRS CHRONIC ULC UNSP PRT OF UNSP LOW LEG W UNSP SEVERITY Status: Acute (6) HLD (hyperlipidemia) Code(s): E78.5 - HYPERLIPIDEMIA, UNSPECIFIED Status: Acute (7) CAD (coronary artery disease) Code(s): I25.10 - ATHSCL HEART DISEASE OF [place] CORONARY ARTERY W/O ANG PCTRS Status: Chronic (8) Lung cancer Code(s): C34.90 - MALIGNANT NEOPLASM OF UNSP PART OF UNSP BRONCHUS OR LUNG Status: Chronic - Plan PT/OT patient cleared for d/c by Dr. Lantigua with f/u in his office on Friday Pulmonology Consult: Meds - Medications MAR Reviewed: Yes Medications: Current Medications Acetaminophen (Tylenol) 650 mg PO Q4H PRN PRN Reason: Headache/Fever/Mild Pain (1-3) Last Admin: 11/05/19 13:31 Dose: 650 mg Hydrocodone Bitart/Acetaminophen ([place]ber 5/325) 1 tab PO Q4H PRN PRN Reason: Moderate Pain (4-6) Albuterol/Ipratropium (Duoneb) 3 ml NEB Q4H PRN PRN Reason: SOB &/or Wheezing Last Admin: 10/29/19 18:46 Dose: 3 ml [facility]irin ([facility]cot[facility]) [facility] [place] Admin: 11/08/19 08:50 Dose: 81 mg Atorvastatin Calcium (Lipitor) 40 mg PO HS [facility] Last Admin: 11/07/19 20:27 Dose: 40 mg Bisacodyl (Dulcolax) 10 mg PO DAILYPRN PRN PRN Reason: Constipation Last Admin: 11/01/19 08:58 Dose: 10 mg Carvedilol (Coreg) 3.125 mg PO BID[facility] Last Admin: 11/08/19 08:50 Dose: 3.125 mg Clopidogrel Bisulfate (Plavix) 75 mg PO DAILY [facility] Last Admin: 11/08/19 08:51 Dose: 75 mg Dextrose/Water (Dextrose 50%) 25 gm SLOW IVP PRN PRN PRN Reason: Hypoglycemia Diphenhydramine HCl (Benadryl) 25 mg PO Q6H PRN PRN Reason: Itching & Insomnia Docusate Sodium (Colace) 100 mg PO BIDPRN PRN PRN Reason: Constipation Last Admin: 11/05/19 09:00 Dose: 100 mg Ezetimibe (Zetia) 10 mg PO DAILY [facility] Last Admin: 11/08/19 08:51 Dose: 10 mg Enoxaparin Sodium (Lovenox) 40 mg SC 0900 [facility] Last Admin: 11/08/19 08:51 Dose: 40 mg Famotidine (Pepcid) 20 mg PO DAILY [facility] Last Admin: 11/08/19 08:51 Dose: 20 mg Gabapentin (Neurontin) 600 mg PO BID [facility] Last Admin: 11/08/19 08:51 Dose: 600 mg Glucagon (Glucagon) 1 mg IM PRN PRN PRN Reason: Hypoglycemia Dextrose/Water (D5w) 1,000 mls @ 0 mls/hr IV .Q0M PRN PRN Reason: Hypoglycemia Insulin Glargine 18 units/ (Miscellaneous Medication) 0.18 mls @ 1 mls/hr SC BID [facility] Last Admin: 11/08/19 08:51 Dose: 0.18 mls Insulin Human Lispro (Humalog) 0 units SC .AGGRESSIVE SLIDING PRN PRN Reason: Aggressive Correctional Scale Last Admin: 11/07/19 17:00 Dose: 6 unit Insulin Human Lispro (Humalog) 0 units SC .BEDTIME SLIDING SC PRN PRN Reason: Bedtime Correctional Scale Last Admin: 11/06/19 20:48 Dose: 2 unit Levothyroxine Sodium (Synthroid) 50 mcg PO 0600 [facility] Last Admin: 11/08/19 05:29 Dose: 50 mcg Loperamide HCl (Imodium) 2 mg PO PRN PRN PRN Reason: Diarrhea/Loose Stools Magnesium Hydroxide (Milk Of Magnesium) 30 ml PO DAILYPRN PRN PRN Reason: Constipation Melatonin (Melatonin) 3 mg PO HSPRN PRN PRN Reason: Insomnia Miscellaneous Medication (Pharmacy To Dose) 1 each IVPB PRN PRN PRN Reason: Pharmacy to dose Morphine Sulfate (Morphine) 2 mg SLOW IVP Q4H PRN PRN Reason: Moderate to Severe Pain (6-10) Last Admin: 10/29/19 16:30 Dose: 2 mg Multivitamins (Theragran) 1 tab PO DAILY [facility] Last Admin: 11/08/19 08:52 Dose: 1 tab Nitroglycerin (Nitrostat) 0.4 mg SL Q5MIN PRN PRN Reason: Chest Pain Ondansetron HCl (Zofran Odt) 4 mg PO Q6H PRN PRN Reason: Nausea/Vomiting Ondansetron HCl (Zofran) 4 mg IVP Q6H PRN PRN Reason: Nausea/Vomiting Last Admin: 10/30/19 04:42 Dose: 4 mg Potassium Chloride (Klor-Con 10) 10 meq PO BID[facility] Last Admin: 11/08/19 08:50 Dose: 10 meq Sertraline HCl (Zoloft) 25 mg PO DAILY [facility] Last Admin: 11/08/19 08:52 Dose: 25 mg Sodium Chloride (Flush - Normal Saline) 10 ml IVF Q12HR [facility] Last Admin: 11/08/19 08:52 Dose: 10 ml Sodium Chloride (Flush - Normal Saline) 10 ml IVF PRN PRN PRN Reason: Saline Flush Spironolactone (Aldactone) 25 mg PO QAM[facility] Last Admin: 11/08/19 08:50 Dose: 25 mg Torsemide (Demadex) 20 mg PO BID@0900,1400 [facility] Last Admin: 11/08/19 08:56 Dose: 20 mg - Allergies Allergies/Adverse Reactions: Allergies Allergy/AdvReac Type Severity Reaction Status Date / Time No Known Allergies Allergy Verified 03/18/18 12:25
[2019-11-08] MEDS: HumaLOG 300 UNITS/3 ML VIAL SC PRN (12:31)
--- NOTE | 2019-11-08 14:29 | PRG ---
DATE OF SERVICE: 11/08/2019 SUBJECTIVE: Mr. Oswald is doing better. He is up walking around with some assistance yesterday. He has bilateral below-knee amputations. But, he is able to get up and around with some help. OBJECTIVE: VITAL SIGNS: His blood pressure earlier today was 98/50, then 125/70 and pulse is 70. LUNGS: Clear. CARDIAC: Normal S1 and normal S2. ABDOMEN: Soft and nontender. EXTREMITIES: Bilateral below-knee amputation. LABORATORY DATA: Looking to laboratory, he had a potassium yesterday of 5.3, today is 4.5 and creatinine is 1.46, down to 1.32. I am going to stop the spironolactone in view of his history of hyperkalemia and renal failure. ASSESSMENT AND PLAN: 1. Congestive heart failure, severe. 2. Coronary artery disease. 3. Severe peripheral vascular disease. 4. Mitral regurgitation. 5. He is going to go home on torsemide 20 mg twice a day. 6. Potassium 10 mEq twice a day. 7. Coreg 3.125 mg twice a day. 8. Atorvastatin 40 mg a day. 9. Could not tolerate angiotensin-converting enzyme inhibitor due to hyperkalemia and renal failure. Long-term prognosis guarded to poor. A LifeVest has been fitted for him, to come back and see us in the office on the . Job ID: [id number]
[2019-11-08 15:52] VITALS: BP 113/60
[2019-11-08 15:59] VITALS: TEMP 98.1
--- NOTE | 2019-11-09 12:11 | DIS ---
DATE OF ADMISSION: 10/29/2019 DATE OF DISCHARGE: 11/08/2019 PRIMARY CARE PHYSICIAN: Dr. Daniel Tineo. REASON FOR ADMISSION: Chest pain, shortness of breath. DIAGNOSES AT DISCHARGE: 1. [id number] myocardial infarction. 2. Acute on chronic systolic congestive heart failure. 3. Acute on chronic renal failure stage 3. 4. Hypertension. 5. Diabetes mellitus type 2, insulin dependent with lower extremity ulcers. 6. Hyperlipidemia. 7. Coronary artery disease. 8. Lung cancer, chronic. PROCEDURES: Echocardiogram showing left ventricular enlargement, ejection fraction of 15% to 20% and an akinetic apex, diffuse severe global hypokinesis. CONSULTATIONS: 1. Cardiology, Dr. Lantigua. 2. Pulmonology, Dr. Metzger. CURRENT LABORATORY: Troponin initially 3.3 up to 5.3 during hospitalization and down to 0.9 at discharge. Creatinine went as high as 1.75 down to 1.32 at discharge. Potassium went up to 5.3 down to 4.5 at discharge. SUMMARY OF HOSPITAL COURSE: This is a 74-year-old white male with extensive past medical history of diabetes, coronary artery disease with previous bypass grafting, peripheral vascular disease, previous pulmonary embolism, previous lung cancer, status post lobectomy and chemotherapy, who came in with chest pain, shortness of breath, was initially considered he might have a STEMI. However, this was downgraded to an NSTEMI by Cardiology. The patient was admitted to the intensive care unit. He was treated medically by Dr. Lantigua in the hospital and also had a LifeVest placed. He had an echocardiogram with results as above showing severe congestive heart failure. The patient improved during hospitalization. He initially did not tolerate any of his blood pressure medicines due to hypotension. However, by the time of discharge, he was tolerating his carvedilol and diuretics. The patient did have some elevated potassium, so spironolactone was discontinued by Dr. Lantigua and he was doing well on the day of discharge, eating well, ambulating well and eager to go home. He has been cleared for discharge by Dr. Lantigua. The patient's renal function had worsened from baseline during his hospitalization, so his metformin was discontinued. His other diabetic medications were discontinued as well due to his congestive heart failure and he is being discharged just on insulin for his diabetes. DISCHARGE MANAGEMENT: Discharged home. Activity: As tolerated. Diet: Healthy heart diabetic diet. Therapy: Outpatient cardiac rehab with Home Health for occupational and physical therapy. Equipment: [email or web address]. Followup: Outpatient followup in Dr. Lantigua's office with his PA on Friday, with Dr. Tineo in 7 days, and with Cardiac Rehab in [place]. DISCHARGE MEDICATIONS: 1. Levothyroxine 50 mcg daily. 2. Multivitamin daily. 3. Gabapentin 600 mg twice a day. 4. Aspirin 81 mg daily. 5. Simvastatin 40 mg at night. 6. Sertraline 25 mg daily. 7. Potassium chloride 10 mEq twice a day. 8. Insulin glargine 18 units twice a day. 9. Zetia 10 mg daily. 10. Clopidogrel 75 mg daily. 11. Carvedilol 3.125 mg twice a day. Job ID: [id number]
== END 2019-11-08 17:25 | disposition home health service (06) | DRG 280 ==
LOC: ERS 10:33 → CCU 14:03 → 2NO 11-02 19:05 → IMCU/EMU 11-03 20:57
PROVIDERS: ADMIT Internal Medicine; ATTEND Internal Medicine
DX: I13.0 Hypertensive heart and chronic kidney disease with heart failure and stage 1 through stage 4 chronic kidney disease, or unspecified chronic kidney disease (principal); I21.4 Non-ST elevation (NSTEMI) myocardial infarction; J96.01 Acute respiratory failure with hypoxia; I50.23 Acute on chronic systolic (congestive) heart failure; I38 Endocarditis, valve unspecified; E87.2 Acidosis; L97.929 Non-pressure chronic ulcer of unspecified part of left lower leg with unspecified severity; C34.90 Malignant neoplasm of unspecified part of unspecified bronchus or lung; I42.9 Cardiomyopathy, unspecified; I25.10 Atherosclerotic heart disease of native coronary artery without angina pectoris; Z95.1 Presence of aortocoronary bypass graft; I25.2 Old myocardial infarction; Z90.49 Acquired absence of other specified parts of digestive tract; M54.5 Low back pain; G89.29 Other chronic pain; I73.9 Peripheral vascular disease, unspecified; E87.5 Hyperkalemia; I34.0 Nonrheumatic mitral (valve) insufficiency; Z79.84 Long term (current) use of oral hypoglycemic drugs; E11.65 Type 2 diabetes mellitus with hyperglycemia; D64.81 Anemia due to antineoplastic chemotherapy; N18.3 Chronic kidney disease, stage 3 (moderate); E11.22 Type 2 diabetes mellitus with diabetic chronic kidney disease; Z89.512 Acquired absence of left leg below knee; Z89.511 Acquired absence of right leg below knee; E11.622 Type 2 diabetes mellitus with other skin ulcer
CPT/HCPCS: 36415; 36416; 51702; 71045; 80048; 80053; 80061; 80069; 80162; 82550; 82553; 83690; 84484; 85025; 85610; 85730; 93005; 93010; 93306; 94640; 94760; 96374; 96375; 96376; J1644; J1650; J1815; J1940; J2270; J2405; J7620